=== PATIENT | male | born 1940 | race Caucasian/White ===

== ENCOUNTER → 2018-06-02 10:36 | Outpatient (CLI) | payer MEDICARE, SELFPAY ==
--- NOTE | 2018-06-02 | DI.CT.S_ITS ---
PROCEDURE: CT HEAD/BRAIN WO CON INDICATIONS: CHRONIC HEADACHE LEFT POSTERIOR BASE TECHNIQUE: Noncontrast 4.5 mm thick angled axial sections acquired from the foramen magnum to the vertex, with coronal and sagittal reformats. For radiation dose reduction, the following was used: automated exposure control, adjustment of mA and/or kV according to patient size. COMPARISON: [facility], CT, HEAD WITHOUT CONTRAST, 11/17/2009, 12:16. FINDINGS: Image quality: Excellent. CSF spaces: Basal cisterns are patent. No extra-axial fluid collections. The ventricles are symmetric in size and shape. Brain: No intracranial bleeds or masses. There is cerebral volume loss for age, with resultant ventricular and sulcal prominence. There are periventricular and deep white matter chronic small vessel ischemic changes. There is intracranial internal carotid artery atherosclerosis. Skull and face: Calvarium and visualized facial bones appear intact, without suspicious lesions. Sinuses: Visualized sinuses and mastoids are clear. IMPRESSION: 1. No acute intracranial abnormality. Dictated by: Abdelrahman Son M.D. on 06/02/2018 at 10:56 Approved by: Abdelrahman Son M.D. on 06/02/2018 at 10:57
== END ==
PROVIDERS: PCP Family Medicine; Visit Provider Family Medicine
DX: R51 Headache (principal)
CPT/HCPCS: 70450

== ENCOUNTER 2018-09-06 13:50 | Inpatient (IN) | payer MEDICARE, SELFPAY ==
[2018-09-06] VITALS (17 sets, daily range): BP systolic 115–150; BP diastolic 65–90; PULSE 92–111; RESP 12–24; TEMP 37.3–38; O2SAT 94–98; BMI 23.4
--- NOTE | 2018-09-06 | PATH_ITS ---
[facility] Accession Number: [id number] . 01 Material submitted: . SMALL BOWEL SEGMENT . 02 Diagnosis: Small Bowel, Resection: 1. Chronic severely active ileitis with patchy ulcerations, pseudopyloric metaplasia, and edema. Please see comment. 2. Appendix with fibrous obliteration. 3. Portion of colon with no diagnosic abnormality. 4. Negative for granulomas, dysplasia and malignancy. MRV/09/14/2018 . 02 Comment: The surgical impression of intussusception is noted. No nodules or lesions are identified. There is chronic severely active ileitis with patchy ulcerations, crypt distortion and pseudopyloric metaplasia consistent with the provided history of Crohn's disease. No granulomas are identified. The differential diagnosis could also include medication-related mucosal injury in the appropriate clinical setting. . . 02 Electronically signed: . Judy Alfaro MD, Pathologist NPI- [id number] . 01 Gross description: . Received in formalin, labeled small bowel segment, is a segment of small bowel (length-23.5 cm, proximal diameter-2.7 cm), cecum and ascending colon (length-7.5 cm, distal diameter-3.2 cm), attached appendix (length-7.7 cm, diameter-0.3 cm), and attached mesentery (up to 5.8 cm in depth). The resection margins are received stapled. The serosa is betts, smooth and shiny. The small bowel mucosa is betts and diffusely flat with a minimal amount of normal folds present. The wall is diffusely thickened. The cecum and ascending colon have betts mucosa with normal folds. The appendix is unremarkable. No nodules, massese or lesions are identified. The resection margins are inked black. Section code: (A1) proximal resection margin, longitudinal banking representative sections; (A2) distal resection margin, longitudinal banking representative section; (A3-A6) small bowel banking representative serial sections submitted proximal to distal; (A7, A8) cecum and ascending colon, representativ serial sections submitted proximal to distal; (A9) appendix, banking representative. ([id number]) Additional sections: (A10-A12) remaining appendix, appendix is now entirely submitted; (A13-A20) colon segment, additional serial sections submitted proximal to distal. ([id number]) /MRV . 02 Pathologist provided ICD-10: K56.1 . 02 CPT . 787458 Performed at: 01 [facility] [address] [facility], [place], [place] [id number] MD Toi Tomas MD Phone: [phone] Performed at: 02 [facility] [address] [place], [place] [id number] MD Judy Alfaro MD Phone: [phone]
--- NOTE | 2018-09-06 14:52 | ED.ABDPAIN ---
HPI - Abdominal Pain <LATOYA Phillips - Last Filed: 09/06/18 22:09> General Chief Complaint: Abdominal Pain Stated Complaint: abdominal pain Time Seen by Provider: 09/06/18 14:51 Source: patient Mode of arrival: ambulatory Limitations: no limitations History of Present Illness HPI narrative: 77-year-old male with history of past small bowel obstruction and Crohn's disease the is a nonsmoker here for complaint of abdominal pain that started yesterday. He denies any trauma to the abdomen. He states that he had a period of last night were abdominal pain and got better. Then he reports that early this morning it got worse he reports that he has significant abdominal pain at this timeframe. He does report that he has had 2 bowel movements today had 2 bowel movements yesterday. He denies any the flatus at this timeframe. Positive p.o. intake last p.o. intake was at 9:30 a.m. today. He has nausea. No vomiting. He denies any fevers or chills. Pain is limited to the abdomen. He states that the symptoms are similar to when he has small-bowel obstruction last time. Related Data Home Medications Medication Instructions Recorded Confirmed Fish Oil 500 mg PO DAILY #0 06/24/11 09/06/18 multivitamin [Multiple Vitamins] 1 tab PO DAILY #0 01/05/17 09/06/18 Vitamin D3 1 cap PO DAILY 09/06/18 09/06/18 latanoprost 1 drp OPHTHALMIC (EYE) BEDTIME 09/06/18 09/06/18 omeprazole magnesium [Prilosec OTC] 10 mg PO DAILY 09/06/18 09/06/18 Allergies Allergy/AdvReac Type Severity Reaction Status Date / Time No Known Drug Allergies Allergy Verified 09/06/18 20:52 Review of Systems <LATOYA Phillips - Last Filed: 09/06/18 22:09> Constitutional Denies chills, Denies fever(s), Denies lethargy and Denies weakness Eyes Denies change in vision, Denies eye discharge, Denies irritation and Denies loss of vision ENT Ears, Nose, Mouth, and Throat: Denies change in voice, Denies neck pain and Denies sore throat Cardiovascular Denies chest pain, Denies irregular heart rhythm, Denies lightheadedness, Denies palpitations, Denies dyspnea, Denies dyspnea on exertion and Denies orthopnea Respiratory Denies cough, Denies dyspnea, Denies dyspnea on exertion and Denies wheezing Gastrointestinal Comments: Abdominal pain Genitourinary Denies hematuria, Denies flank pain, Denies urinary incontinence and Denies urinary urgency Musculoskeletal Denies neck pain Integumentary/Breasts Denies pruritus, Denies erythema, Denies rash and Denies wounds Neurologic Denies confusion, Denies loss of vision and Denies weakness Psychiatric Denies anxiety, Denies confusion, Denies depression, Denies homicidal ideation and Denies suicidal ideation Endocrine Denies palpitations Allergic/Immunologic Denies wheezing Exam <LATOYA Phillips - Last Filed: 09/06/18 22:09> Initial Vital Signs Initial Vital Signs: Vital Signs Pulse Rate 92 H 09/06/18 13:59 Respiratory Rate 20 09/06/18 13:59 Blood Pressure 148/90 H 09/06/18 13:59 Pulse Oximetry 96 09/06/18 13:59 Const General: cooperative and well developed Nutritional Appearance: well nourished Orientation: alert, awake, oriented x3 and not confused [facility] Mouth: oral mucosae normal and moist mucous membranes Eyes Conjunctivae: conjunctivae normal Sclera: sclerae normal Pupils: PERRL EOM: EOM intact bilaterally Resp Effort & Inspection: normal respiratory effort, able to speak in complete sentences, no respiratory distress and no use of accessory muscles Auscultation: clear to auscultation bilaterally, no rales, no rhonchi and no wheezes Cardio Rate: regular rate Rhythm: regular rhythm Heart Sounds: no click, no gallops, no murmurs and no rubs Pulses: normal peripheral pulses GI Inspection: distended Palpation: no hepatosplenomegaly, No guarding, No pulsatile mass and tender Auscultation: normal bowel sounds Other: Distention is slight firmness to the abdominal area. Generalized discomfort on palpation. Normoactive bowel sounds. General: No CVA tenderness Neuro General: alert, oriented x3, gait normal and no focal motor deficits Speech: speech normal Extrem General: full ROM, no clubbing, cyanosis or edema, no pedal edema and no calf tenderness <Reyna Gonzalez DO - Last Filed: 09/07/18 19:46> Initial Vital Signs Initial Vital Signs: Vital Signs Pulse Rate 92 H 09/06/18 13:59 Respiratory Rate 20 09/06/18 13:59 Blood Pressure 148/90 H 09/06/18 13:59 Pulse Oximetry 96 09/06/18 13:59 Course <LATOYA Phillips - Last Filed: 09/06/18 22:09> Orders Ordered: Benzocaine/Butamben/Tetracaine HCl (Cetacaine [place]) 1 spray TOP PRN PRN PRN Reason: Sore Throat Diphenhydramine HCl (Benadryl) 25 mg IV Q6HR PRN PRN Reason: Itching Enoxaparin Sodium (Lovenox) 40 mg SUBCUT DAILY [facility] Last Admin: 09/07/18 09:18 Dose: 40 mg Dextrose/Sodium Chloride (Dextrose 5%-0.45% Ns) 1,000 mls @ 125 mls/hr IV CONT [facility] Last Admin: 09/07/18 14:23 Dose: 125 mls/hr Infusion: 09/07/18 14:23 Dose: 125 mls/hr Admin: 09/07/18 06:35 Dose: 125 mls/hr Infusion: 09/07/18 06:11 Dose: 125 mls/hr Admin: 09/06/18 22:11 Dose: 125 mls/hr HYDROMORPHONE [employer] (Dilaudid 6 Mg/30 Ml) 6 mg in 30 mls @ 0 mls/hr IV Q8HR [facility] Last Admin: 09/07/18 14:00 Dose: 0 mls/hr Admin: 09/07/18 06:32 Dose: 4 mls/hr Admin: 09/06/18 22:13 Dose: Not Given Piperacillin/Tazobactam/Dextrose (Zosyn) 3.375 gm in 50 mls @ 100 mls/hr IV Q6H [facility] Last Infusion: 09/07/18 16:43 Dose: 0 mls/hr Admin: 09/07/18 16:06 Dose: 100 mls/hr Infusion: 09/07/18 10:30 Dose: 100 mls/hr Admin: 09/07/18 09:22 Dose: 100 mls/hr Infusion: 09/07/18 04:56 Dose: 0 mls/hr Admin: 09/07/18 04:00 Dose: 100 mls/hr Infusion: 09/07/18 00:14 Dose: 0 mls/hr Admin: 09/06/18 22:35 Dose: 100 mls/hr Naloxone HCl (Narcan) 0.2 mg IV Q2MIN PRN PRN Reason: Opiate Reversal Ondansetron HCl (Zofran) 4 mg IV Q4HR PRN PRN Reason: Nausea And Vomiting Pantoprazole Sodium (Protonix) 40 mg IV DAILY [facility] Last Admin: 09/07/18 09:18 Dose: 40 mg Discontinued Medications Benzocaine (Cepacol Lozenge) 1 each PO PRN PRN PRN Reason: Sore Throat Benzocaine/Butamben/Tetracaine HCl (Cetacaine [place]) 1 spray TOP PRN PRN PRN Reason: Nasogastric tube insertion Last Admin: 09/06/18 16:57 Dose: 1 spray Bupivacaine HCl (Sensorcaine 0.5% (Pf)) 30 ml INJ NOW ONE Stop: 09/06/18 18:11 Last Admin: 09/06/18 18:17 Dose: 10 ml Fentanyl (Sublimaze) 50 mcg IV Q5MIN PRN PRN Reason: Pain, Severe (7-10) Fentanyl (Sublimaze) 50 mcg IV Q5MIN PRN PRN Reason: Pain, Moderate (4-6) Hydromorphone HCl (Dilaudid) 0.5 mg IV NOW ONE Stop: 09/06/18 15:02 Last Admin: 09/06/18 15:17 Dose: 0.5 mg Hydromorphone HCl (Dilaudid) 0.5 mg IV Q5MIN PRN PRN Reason: Pain, Moderate (4-6) Hydroxyzine HCl (Vistaril) 25 mg IM NOW PRN PRN Reason: Pain, Mild (1-3) Sodium Chloride (Normal Saline 0.9%) 1,000 mls @ 1,000 mls/hr IV BOLUS ONE Stop: 09/06/18 16:00 Last Infusion: 09/06/18 16:48 Dose: 0 mls/hr Admin: 09/06/18 15:17 Dose: 1,000 mls/hr Famotidine (Pepcid) 20 mg in 50 mls @ 200 mls/hr IV NOW ONE Stop: 09/06/18 16:53 Last Infusion: 09/06/18 17:10 Dose: 0 mls/hr Admin: 09/06/18 16:52 Dose: 200 mls/hr Lactated Ringer's (Lactated Ringers) 1,000 mls @ 42 mls/hr IV CONT [facility] Last Infusion: 09/06/18 21:05 Dose: 0 mls/hr Admin: 09/06/18 19:27 Dose: 42 mls/hr Infusion: 09/06/18 19:27 Dose: 42 mls/hr Admin: 09/06/18 18:19 Dose: 42 mls/hr Infusion: 09/06/18 18:19 Dose: 42 mls/hr Admin: 09/06/18 17:00 Dose: 42 mls/hr Cefotetan Disodium/Dextrose (Cefotan) 2 gm in 50 mls @ 100 mls/hr IV NOW ONE Stop: 09/06/18 17:14 Last Infusion: 09/06/18 18:01 Dose: 0 mls/hr Admin: 09/06/18 17:43 Dose: 100 mls/hr Lidocaine/Epinephrine (Xylocaine 1% W/Epi) 10 ml INJ NOW ONE Stop: 09/06/18 18:11 Last Admin: 09/06/18 18:11 Dose: 10 ml Lorazepam (Ativan) 0.25 mg IV NOW ONE Stop: 09/06/18 20:26 Last Admin: 09/06/18 20:40 Dose: 0.25 mg Admin: 09/06/18 20:25 Dose: 0.25 mg Metoclopramide HCl (Reglan) 10 mg IV NOW ONE Stop: 09/06/18 16:40 Last Admin: 09/06/18 16:53 Dose: 10 mg Metoclopramide HCl (Reglan) 10 mg IV NOW PRN PRN Reason: Nausea And Vomiting Midazolam HCl (Versed) 2 mg IV NOW ONE Stop: 09/06/18 16:38 Last Admin: 09/06/18 21:47 Dose: Naloxone HCl (Narcan) 0.2 mg IV Q2MIN PRN; Protocol PRN Reason: Opiate Reversal Ondansetron HCl (Zofran) 4 mg IV NOW ONE Stop: 09/06/18 15:02 Last Admin: 09/06/18 15:17 Dose: 4 mg Ondansetron HCl (Zofran) 4 mg IV NOW PRN PRN Reason: Nausea And Vomiting Vital Signs - 8 hr 09/07/18 12:00 09/07/18 15:53 Temperature 98.2 F 98.7 F Pulse Rate 86 96 H Respiratory Rate 26 H 20 Blood Pressure 116/86 108/81 Pulse Oximetry 93 95 <Reyna Gonzaelz, DO - Last Filed: 09/07/18 19:46> Orders Ordered: Benzocaine/Butamben/Tetracaine HCl (Cetacaine [place]) 1 spray TOP PRN PRN PRN Reason: Sore Throat Diphenhydramine HCl (Benadryl) 25 mg IV Q6HR PRN PRN Reason: Itching Enoxaparin Sodium (Lovenox) 40 mg SUBCUT DAILY [facility] Last Admin: 09/07/18 09:18 Dose: 40 mg Dextrose/Sodium Chloride (Dextrose 5%-0.45% Ns) 1,000 mls @ 125 mls/hr IV CONT [facility] Last Admin: 09/07/18 14:23 Dose: 125 mls/hr Infusion: 09/07/18 14:23 Dose: 125 mls/hr Admin: 09/07/18 06:35 Dose: 125 mls/hr Infusion: 09/07/18 06:11 Dose: 125 mls/hr Admin: 09/06/18 22:11 Dose: 125 mls/hr HYDROMORPHONE [employer] (Dilaudid 6 Mg/30 Ml) 6 mg in 30 mls @ 0 mls/hr IV Q8HR [facility] Last Admin: 09/07/18 14:00 Dose: 0 mls/hr Admin: 09/07/18 06:32 Dose: 4 mls/hr Admin: 09/06/18 22:13 Dose: Not Given Piperacillin/Tazobactam/Dextrose (Zosyn) 3.375 gm in 50 mls @ 100 mls/hr IV Q6H [facility] Last Infusion: 09/07/18 16:43 Dose: 0 mls/hr Admin: 09/07/18 16:06 Dose: 100 mls/hr Infusion: 09/07/18 10:30 Dose: 100 mls/hr Admin: 09/07/18 09:22 Dose: 100 mls/hr Infusion: 09/07/18 04:56 Dose: 0 mls/hr Admin: 09/07/18 04:00 Dose: 100 mls/hr Infusion: 09/07/18 00:14 Dose: 0 mls/hr Admin: 09/06/18 22:35 Dose: 100 mls/hr Naloxone HCl (Narcan) 0.2 mg IV Q2MIN PRN PRN Reason: Opiate Reversal Ondansetron HCl (Zofran) 4 mg IV Q4HR PRN PRN Reason: Nausea And Vomiting Pantoprazole Sodium (Protonix) 40 mg IV DAILY [facility] Last Admin: 09/07/18 09:18 Dose: 40 mg Discontinued Medications Benzocaine (Cepacol Lozenge) 1 each PO PRN PRN PRN Reason: Sore Throat Benzocaine/Butamben/Tetracaine HCl (Cetacaine [place]) 1 spray TOP PRN PRN PRN Reason: Nasogastric tube insertion Last Admin: 09/06/18 16:57 Dose: 1 spray Bupivacaine HCl (Sensorcaine 0.5% (Pf)) 30 ml INJ NOW ONE Stop: 09/06/18 18:11 Last Admin: 09/06/18 18:17 Dose: 10 ml Fentanyl (Sublimaze) 50 mcg IV Q5MIN PRN PRN Reason: Pain, Severe (7-10) Fentanyl (Sublimaze) 50 mcg IV Q5MIN PRN PRN Reason: Pain, Moderate (4-6) Hydromorphone HCl (Dilaudid) 0.5 mg IV NOW ONE Stop: 09/06/18 15:02 Last Admin: 09/06/18 15:17 Dose: 0.5 mg Hydromorphone HCl (Dilaudid) 0.5 mg IV Q5MIN PRN PRN Reason: Pain, Moderate (4-6) Hydroxyzine HCl (Vistaril) 25 mg IM NOW PRN PRN Reason: Pain, Mild (1-3) Sodium Chloride (Normal Saline 0.9%) 1,000 mls @ 1,000 mls/hr IV BOLUS ONE Stop: 09/06/18 16:00 Last Infusion: 09/06/18 16:48 Dose: 0 mls/hr Admin: 09/06/18 15:17 Dose: 1,000 mls/hr Famotidine (Pepcid) 20 mg in 50 mls @ 200 mls/hr IV NOW ONE Stop: 09/06/18 16:53 Last Infusion: 09/06/18 17:10 Dose: 0 mls/hr Admin: 09/06/18 16:52 Dose: 200 mls/hr Lactated Ringer's (Lactated Ringers) 1,000 mls @ 42 mls/hr IV CONT [facility] Last Infusion: 09/06/18 21:05 Dose: 0 mls/hr Admin: 09/06/18 19:27 Dose: 42 mls/hr Infusion: 09/06/18 19:27 Dose: 42 mls/hr Admin: 09/06/18 18:19 Dose: 42 mls/hr Infusion: 09/06/18 18:19 Dose: 42 mls/hr Admin: 09/06/18 17:00 Dose: 42 mls/hr Cefotetan Disodium/Dextrose (Cefotan) 2 gm in 50 mls @ 100 mls/hr IV NOW ONE Stop: 09/06/18 17:14 Last Infusion: 09/06/18 18:01 Dose: 0 mls/hr Admin: 09/06/18 17:43 Dose: 100 mls/hr Lidocaine/Epinephrine (Xylocaine 1% W/Epi) 10 ml INJ NOW ONE Stop: 09/06/18 18:11 Last Admin: 09/06/18 18:11 Dose: 10 ml Lorazepam (Ativan) 0.25 mg IV NOW ONE Stop: 09/06/18 20:26 Last Admin: 09/06/18 20:40 Dose: 0.25 mg Admin: 09/06/18 20:25 Dose: 0.25 mg Metoclopramide HCl (Reglan) 10 mg IV NOW ONE Stop: 09/06/18 16:40 Last Admin: 09/06/18 16:53 Dose: 10 mg Metoclopramide HCl (Reglan) 10 mg IV NOW PRN PRN Reason: Nausea And Vomiting Midazolam HCl (Versed) 2 mg IV NOW ONE Stop: 09/06/18 16:38 Last Admin: 09/06/18 21:47 Dose: Naloxone HCl (Narcan) 0.2 mg IV Q2MIN PRN; Protocol PRN Reason: Opiate Reversal Ondansetron HCl (Zofran) 4 mg IV NOW ONE Stop: 09/06/18 15:02 Last Admin: 09/06/18 15:17 Dose: 4 mg Ondansetron HCl (Zofran) 4 mg IV NOW PRN PRN Reason: Nausea And Vomiting Vital Signs - 8 hr 09/07/18 12:00 09/07/18 15:53 Temperature 98.2 F 98.7 F Pulse Rate 86 96 H Respiratory Rate 26 H 20 Blood Pressure 116/86 108/81 Pulse Oximetry 93 95 MDM - Abdominal Pain <Douglas LATOYA Lucas - Last Filed: 09/06/18 22:09> Lab Data Result diagrams: 09/07/18 04:54 09/07/18 04:54 Lab Results 09/06/18 09/06/18 09/06/18 Range/Units 14:05 14:05 21:30 WBC 8.2 (4.5-11.0) X10^3/uL RBC 5.45 (4.5-5.9) X10^6/uL Hgb 17.0 (13.5-17.5) g/dL Hct 49.5 (41-53) % MCV 90.8 (80-100) fL MCH 31.1 (26-34) PG MCHC 34.3 (30-36) % RDW 13.9 (11.6-14.8) % Plt Count 217 (150-400) X10^3/uL Neut % (Auto) 75.2 H (50-75) % Lymph % (Auto) 14.7 L (25-40) % [place] % (Auto) 8.3 (3-14) % Eos % (Auto) 1.5 L (2-4) % Baso % (Auto) 0.3 (0-2) % Neut # (Auto) 6200 (7532-4140) /uL Sodium 137 (137-145) mmol/L Potassium 4.1 (3.4-5.1) mmol/L Chloride 96 L (98-107) mmol/L Carbon Dioxide 30 (22-32) mmol/L BUN 13 (9-20) mg/dL Creatinine 1.00 (0.66-1.25) mg/dL Estimated GFR > 60.0 (>60) mL/min BUN/Creatinine Ratio 13.0 (6-22) Glucose 127 H (80-110) mg/dL Calcium 9.7 (8.4-10.2) mg/dL Total Bilirubin 1.3 (0.2-1.3) mg/dL AST 46 (17-59) IU/L ALT 37 (21-72) IU/L Alkaline Phosphatase 74 (38-126) U/L Total Protein 8.7 H (6.3-8.2) g/dL Albumin 4.7 (3.5-5.0) g/dL Globulin 4.0 (1.7-4.1) g/dL Albumin/Globulin Ratio 1.2 (1.0-2.8) Lipase 25 (23-300) U/L Nasal Screen MRSA (PCR) Negative for mrsa (Negative) 09/07/18 09/07/18 Range/Units 04:54 04:54 WBC 10.8 (4.5-11.0) X10^3/uL RBC 4.97 (4.5-5.9) X10^6/uL Hgb 15.4 (13.5-17.5) g/dL Hct 45.1 (41-53) % MCV 90.8 (80-100) fL MCH 31.0 (26-34) PG MCHC 34.1 (30-36) % RDW 14.1 (11.6-14.8) % Plt Count 206 (150-400) X10^3/uL Neut % (Auto) 88.2 H (50-75) % Lymph % (Auto) 5.0 L (25-40) % [place] % (Auto) 6.7 (3-14) % Eos % (Auto) 0.0 L (2-4) % Baso % (Auto) 0.1 (0-2) % Neut # (Auto) 9500 H (2349-8297) /uL Sodium 135 L (137-145) mmol/L Potassium 4.0 (3.4-5.1) mmol/L Chloride 99 (98-107) mmol/L Carbon Dioxide 25 (22-32) mmol/L BUN 10 (9-20) mg/dL Creatinine 0.90 (0.66-1.25) mg/dL Estimated GFR > 60.0 (>60) mL/min BUN/Creatinine Ratio 11.1 (6-22) Glucose 170 H (80-110) mg/dL Calcium 8.4 (8.4-10.2) mg/dL Total Bilirubin 1.2 (0.2-1.3) mg/dL AST 36 (17-59) IU/L ALT 37 (21-72) IU/L Alkaline Phosphatase 46 (38-126) U/L Total Protein 6.7 (6.3-8.2) g/dL Albumin 3.7 (3.5-5.0) g/dL Globulin 3.0 (1.7-4.1) g/dL Albumin/Globulin Ratio 1.2 (1.0-2.8) Lipase (23-300) U/L Nasal Screen MRSA (PCR) (Negative) Imaging Data CT scan - abdomen: Radiologist's impression: [address] [address] [address] Scan Report Signed Patient: Yung Conn MR#: [id number] : 1940 Acct:[id number] Age/Sex: 77 / M Date of Service: 09/06/18 Loc: ED Accession Number: [id number] Procedure: CT abdomen pelvis w con Ordering Provider: Douglas Lucas PROCEDURE: CT ABDOMEN PELVIS W CON INDICATIONS: Abdominal bloating and pain TECHNIQUE: After the administration of intravenous contrast, 5 mm thick sections acquired from the diaphragm to the symphysis. 5 mm coronal and sagittal reformats were acquired. For radiation dose reduction, the following was used: automated exposure control, adjustment of mA and/or kV according to patient size. COMPARISON: None. FINDINGS: Image quality: Excellent. ABDOMEN: Lung bases: Scarring/atelectasis in posterior aspect of bilateral lung bases are seen. No pleural effusion or pneumothorax.. Heart size is normal. Solid organs: Liver is normal in size and enhancement. Gallbladder is within normal limits. Biliary system is non dilated. Pancreas enhances normally. Spleen is normal in size and enhancement. No adrenal nodules. Kidneys demonstrate normal size and enhancement, without hydronephrosis. 5.4 x 5.5 cm simple-appearing cyst in midpole of right kidney is seen. Peritoneum and bowel: There is a small hiatal hernia. Fluid distended stomach lumen and small bowel loops are noted throughout abdomen with intussusception of a 12 cm segment of distal ileal loop into terminal ileum and right lower quadrant best seen on axial images 63 through 81 and coronal images 27 through 34. Mild distal ileal wall thickening is seen. Colon loops are decompressed. Colon diverticulosis is seen, and no CT evidence of acute diverticulitis. No free fluid or free air. Nodes and vessels: No retroperitoneal or mesenteric adenopathy by size criteria. Aorta and inferior vena cava are normal in size. Miscellaneous: No ventral hernias. PELVIS: Genitourinary: Bladder wall thickness is normal. Enlarged prostate gland with mass effect of pleural effusion the bladder is seen. Miscellaneous: No inguinal hernias or adenopathy. Bones: No suspicious bony lesions. No vertebral body compression fractures. 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 IMPRESSION: 1. Likely ileal ileal intussusception in right lower quadrant abdomen and measures approximately 12 cm in length. Mild distal ileal wall thickening in this region is also seen. Fluid distended stomach lumen and small bowel loops with a few air-fluid levels suggestive of small bowel structures and with transition point at the site of intussusception. Decompressed colon loops. No free fluid or free air. GI correlation and possible endoscopic evaluation is recommended. 2. Enlarged prostate gland with mass effect on floor of urinary bladder. No renal stone or hydronephrosis. Right renal cyst as above. Findings were discussed with referring clinician ER at 3:55 PM on 09/06/18. Dict mild hepatic steatosis is seen. ated by: Star Valdivia M.D. on 09/06/2018 at 15:48 Approved by: Star Valdivia M.D. on 09/06/2018 at 16:00 MDM Narrative Medical decision making narrative: CBC and Chem panel were obtained were unremarkable. Lipase was negative. CT abdomen was obtained and shows ileal ileal intussusception. Discussed case with Dr. chilo bryant who accepted patient is taking patient to surgery for repair. He was given pain medications and nausea medications which happened to be more comfortable. NG tube was placed in the emergency room. <Reyna Gonzalez, DO - Last Filed: 09/07/18 19:46> Lab Data Lab Results 09/06/18 09/06/18 09/06/18 Range/Units 14:05 14:05 21:30 WBC 8.2 (4.5-11.0) X10^3/uL RBC 5.45 (4.5-5.9) X10^6/uL Hgb 17.0 (13.5-17.5) g/dL Hct 49.5 (41-53) % MCV 90.8 (80-100) fL MCH 31.1 (26-34) PG MCHC 34.3 (30-36) % RDW 13.9 (11.6-14.8) % Plt Count 217 (150-400) X10^3/uL Neut % (Auto) 75.2 H (50-75) % Lymph % (Auto) 14.7 L (25-40) % [place] % (Auto) 8.3 (3-14) % Eos % (Auto) 1.5 L (2-4) % Baso % (Auto) 0.3 (0-2) % Neut # (Auto) 6200 (8422-4715) /uL Sodium 137 (137-145) mmol/L Potassium 4.1 (3.4-5.1) mmol/L Chloride 96 L (98-107) mmol/L Carbon Dioxide 30 (22-32) mmol/L BUN 13 (9-20) mg/dL Creatinine 1.00 (0.66-1.25) mg/dL Estimated GFR > 60.0 (>60) mL/min BUN/Creatinine Ratio 13.0 (6-22) Glucose 127 H (80-110) mg/dL Calcium 9.7 (8.4-10.2) mg/dL Total Bilirubin 1.3 (0.2-1.3) mg/dL AST 46 (17-59) IU/L ALT 37 (21-72) IU/L Alkaline Phosphatase 74 (38-126) U/L Total Protein 8.7 H (6.3-8.2) g/dL Albumin 4.7 (3.5-5.0) g/dL Globulin 4.0 (1.7-4.1) g/dL Albumin/Globulin Ratio 1.2 (1.0-2.8) Lipase 25 (23-300) U/L Nasal Screen MRSA (PCR) Negative for mrsa (Negative) 09/07/18 09/07/18 Range/Units 04:54 04:54 WBC 10.8 (4.5-11.0) X10^3/uL RBC 4.97 (4.5-5.9) X10^6/uL Hgb 15.4 (13.5-17.5) g/dL Hct 45.1 (41-53) % MCV 90.8 (80-100) fL MCH 31.0 (26-34) PG MCHC 34.1 (30-36) % RDW 14.1 (11.6-14.8) % Plt Count 206 (150-400) X10^3/uL Neut % (Auto) 88.2 H (50-75) % Lymph % (Auto) 5.0 L (25-40) % [place] % (Auto) 6.7 (3-14) % Eos % (Auto) 0.0 L (2-4) % Baso % (Auto) 0.1 (0-2) % Neut # (Auto) 9500 H (6722-0255) /uL Sodium 135 L (137-145) mmol/L Potassium 4.0 (3.4-5.1) mmol/L Chloride 99 (98-107) mmol/L Carbon Dioxide 25 (22-32) mmol/L BUN 10 (9-20) mg/dL Creatinine 0.90 (0.66-1.25) mg/dL Estimated GFR > 60.0 (>60) mL/min BUN/Creatinine Ratio 11.1 (6-22) Glucose 170 H (80-110) mg/dL Calcium 8.4 (8.4-10.2) mg/dL Total Bilirubin 1.2 (0.2-1.3) mg/dL AST 36 (17-59) IU/L ALT 37 (21-72) IU/L Alkaline Phosphatase 46 (38-126) U/L Total Protein 6.7 (6.3-8.2) g/dL Albumin 3.7 (3.5-5.0) g/dL Globulin 3.0 (1.7-4.1) g/dL Albumin/Globulin Ratio 1.2 (1.0-2.8) Lipase (23-300) U/L Nasal Screen MRSA (PCR) (Negative) Discharge Plan Departure Patient Disposition: Admitted As Inpatient Clinical Impression: Intussusception intestine Discharge Date/Time: 09/06/18 16:47 Interventions: ED Discharge Assessment Last Done: 09/06/18 16:45 Admit Date/Time: 09/06/18 16:19 Admit Provider: Nidia Rosario <Reyna Gonzalez DO - Last Filed: 09/07/18 19:46> Cosign ED Attending Cosignature Attestation: I was immediately available in the department for consultation, case was discussed, surgical consultation and patient take to OR. This documentation has been reviewed and I agree with assessment and plan. Supervised by Reyna Gonzalez,
[2018-09-06 15:02] LABS: Add Manual Diff / Slide Review NO; Basophils Percent Auto 0.3 % (0-2); Eosinophils Percent Auto 1.5 % (2-4); Hematocrit 49.5 % (41-53); Lymphocytes Percent Auto 14.7 % (25-40); Mean Corpuscular HGB Conc 34.3 % (30-36); Mean Corpuscular Hemoglobin 31.1 PG (26-34); Mean Corpuscular Volume 90.8 fL (80-100); Monocytes Percent Auto 8.3 % (3-14); Neutrophils Absolute Auto 6200 /uL (1500-7000); Neutrophils Percent Auto 75.2 % (50-75); Platelet Count 217 X10^3/uL (150-400); Red Blood Cell Count 5.45 X10^6/uL (4.5-5.9); Red Cell Distribution Width 13.9 % (11.6-14.8); White Blood Cell Count 8.2 X10^3/uL (4.5-11.0)
--- NOTE | 2018-09-06 15:02 | DI.CT.S_ITS ---
PROCEDURE: CT ABDOMEN PELVIS W CON INDICATIONS: Abdominal bloating and pain TECHNIQUE: After the administration of intravenous contrast, 5 mm thick sections acquired from the diaphragm to the symphysis. 5 mm coronal and sagittal reformats were acquired. For radiation dose reduction, the following was used: automated exposure control, adjustment of mA and/or kV according to patient size. COMPARISON: None. FINDINGS: Image quality: Excellent. ABDOMEN: Lung bases: Scarring/atelectasis in posterior aspect of bilateral lung bases are seen. No pleural effusion or pneumothorax.. Heart size is normal. Solid organs: Liver is normal in size and enhancement. Gallbladder is within normal limits. Biliary system is non dilated. Pancreas enhances normally. Spleen is normal in size and enhancement. No adrenal nodules. Kidneys demonstrate normal size and enhancement, without hydronephrosis. 5.4 x 5.5 cm simple-appearing cyst in midpole of right kidney is seen. Peritoneum and bowel: There is a small hiatal hernia. Fluid distended stomach lumen and small bowel loops are noted throughout abdomen with intussusception of a 12 cm segment of distal ileal loop into terminal ileum and right lower quadrant best seen on axial images 63 through 81 and coronal images 27 through 34. Mild distal ileal wall thickening is seen. Colon loops are decompressed. Colon diverticulosis is seen, and no CT evidence of acute diverticulitis. No free fluid or free air. Nodes and vessels: No retroperitoneal or mesenteric adenopathy by size criteria. Aorta and inferior vena cava are normal in size. Miscellaneous: No ventral hernias. PELVIS: Genitourinary: Bladder wall thickness is normal. Enlarged prostate gland with mass effect of pleural effusion the bladder is seen. Miscellaneous: No inguinal hernias or adenopathy. Bones: No suspicious bony lesions. No vertebral body compression fractures. 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 IMPRESSION: 1. Likely ileal ileal intussusception in right lower quadrant abdomen and measures approximately 12 cm in length. Mild distal ileal wall thickening in this region is also seen. Fluid distended stomach lumen and small bowel loops with a few air-fluid levels suggestive of small bowel structures and with transition point at the site of intussusception. Decompressed colon loops. No free fluid or free air. GI correlation and possible endoscopic evaluation is recommended. 2. Enlarged prostate gland with mass effect on floor of urinary bladder. No renal stone or hydronephrosis. Right renal cyst as above. Findings were discussed with referring clinician ER at 3:55 PM on 09/06/18. Dict mild hepatic steatosis is seen. ated by: Star Valdivia M.D. on 09/06/2018 at 15:48 Approved by: Star Valdivia M.D. on 09/06/2018 at 16:00
[2018-09-06 15:07] LABS: Alanine Aminotransferase 37 IU/L (21-72); Albumin 4.7 g/dL (3.5-5.0); Albumin Globulin Ratio 1.2 (1.0-2.8); Alkaline Phosphatase 74 U/L (38-126); Aspartate Aminotransferase 46 IU/L (17-59); Bilirubin Total 1.3 mg/dL (0.2-1.3); Blood Urea Nitrogen 13 mg/dL (9-20); Calcium 9.7 mg/dL (8.4-10.2); Carbon Dioxide 30 mmol/L (22-32); Chloride 96 mmol/L (98-107); Estimated Glomerular Filt Rate > 60.0 mL/min (>60); Glucose 127 mg/dL (80-110); HEMOLYSIS 28 (0-50); Lipase 25 U/L (23-300); Potassium 4.1 mmol/L (3.4-5.1); Sodium 137 mmol/L (137-145); Total Protein 8.7 g/dL (6.3-8.2)
[2018-09-06] MEDS: SODIUM CHLORIDE 0.9% 1,000 ML 1000 ML IV (15:17)
[2018-09-06] MEDS: HYDROMORPHONE 1 MG INJ 0.5 MG IV (15:17)
[2018-09-06] MEDS: ONDANSETRON 4 MG/2 ML INJ IV (15:17)
--- NOTE | 2018-09-06 16:23 | ED_ITS ---
HPI - Abdominal Pain <LATOYA Phillips - Last Filed: 09/06/18 22:09> General Chief Complaint: Abdominal Pain Stated Complaint: abdominal pain Time Seen by Provider: 09/06/18 14:51 Source: patient Mode of arrival: ambulatory Limitations: no limitations History of Present Illness HPI narrative: 77-year-old male with history of past small bowel obstruction and Crohn's disease the is a nonsmoker here for complaint of abdominal pain that started yesterday. He denies any trauma to the abdomen. He states that he had a period of last night were abdominal pain and got better. Then he reports that early this morning it got worse he reports that he has significant abdominal pain at this timeframe. He does report that he has had 2 bowel movements today had 2 bowel movements yesterday. He denies any the flatus at this timeframe. Positive p.o. intake last p.o. intake was at 9:30 a.m. today. He has nausea. No vomiting. He denies any fevers or chills. Pain is limited to the abdomen. He states that the symptoms are similar to when he has small- bowel obstruction last time. Related Data Home Medications Medication Instructions Recorded Confirmed Fish Oil 500 mg PO DAILY #0 06/24/11 09/06/18 multivitamin [Multiple Vitamins] 1 tab PO DAILY #0 01/05/17 09/06/18 Vitamin D3 1 cap PO DAILY 09/06/18 09/06/18 latanoprost 1 drp OPHTHALMIC (EYE) BEDTIME 09/06/18 09/06/18 omeprazole magnesium [Prilosec OTC] 10 mg PO DAILY 09/06/18 09/06/18 Allergies Allergy/AdvReac Type Severity Reaction Status Date / Time No Known Drug Allergies Allergy Verified 09/06/18 20:52 Review of Systems <LATOYA Phillips - Last Filed: 09/06/18 22:09> Constitutional Denies chills, Denies fever(s), Denies lethargy and Denies weakness Eyes Denies change in vision, Denies eye discharge, Denies irritation and Denies loss of vision ENT Ears, Nose, Mouth, and Throat: Denies change in voice, Denies neck pain and Denies sore throat Cardiovascular Denies chest pain, Denies irregular heart rhythm, Denies lightheadedness, Denies palpitations, Denies dyspnea, Denies dyspnea on exertion and Denies orthopnea Respiratory Denies cough, Denies dyspnea, Denies dyspnea on exertion and Denies wheezing Gastrointestinal Comments: Abdominal pain Genitourinary Denies hematuria, Denies flank pain, Denies urinary incontinence and Denies urinary urgency Musculoskeletal Denies neck pain Integumentary/Breasts Denies pruritus, Denies erythema, Denies rash and Denies wounds Neurologic Denies confusion, Denies loss of vision and Denies weakness Psychiatric Denies anxiety, Denies confusion, Denies depression, Denies homicidal ideation and Denies suicidal ideation Endocrine Denies palpitations Allergic/Immunologic Denies wheezing Exam <LATOYA Phillips - Last Filed: 09/06/18 22:09> Initial Vital Signs Initial Vital Signs: Vital Signs Pulse Rate 92 H 09/06/18 13:59 Respiratory Rate 20 09/06/18 13:59 Blood Pressure 148/90 H 09/06/18 13:59 Pulse Oximetry 96 09/06/18 13:59 Const General: cooperative and well developed Nutritional Appearance: well nourished Orientation: alert, awake, oriented x3 and not confused [facility] Mouth: oral mucosae normal and moist mucous membranes Eyes Conjunctivae: conjunctivae normal Sclera: sclerae normal Pupils: PERRL EOM: EOM intact bilaterally Resp Effort & Inspection: normal respiratory effort, able to speak in complete sentences, no respiratory distress and no use of accessory muscles Auscultation: clear to auscultation bilaterally, no rales, no rhonchi and no wheezes Cardio Rate: regular rate Rhythm: regular rhythm Heart Sounds: no click, no gallops, no murmurs and no rubs Pulses: normal peripheral pulses GI Inspection: distended Palpation: no hepatosplenomegaly, No guarding, No pulsatile mass and tender Auscultation: normal bowel sounds Other: Distention is slight firmness to the abdominal area. Generalized discomfort on palpation. Normoactive bowel sounds. General: No CVA tenderness Neuro General: alert, oriented x3, gait normal and no focal motor deficits Speech: speech normal Extrem General: full ROM, no clubbing, cyanosis or edema, no pedal edema and no calf tenderness <Reyna Gonzalez DO - Last Filed: 09/07/18 19:46> Initial Vital Signs Initial Vital Signs: Vital Signs Pulse Rate 92 H 09/06/18 13:59 Respiratory Rate 20 09/06/18 13:59 Blood Pressure 148/90 H 09/06/18 13:59 Pulse Oximetry 96 09/06/18 13:59 Course <LATOYA Phillips - Last Filed: 09/06/18 22:09> Orders Ordered: Benzocaine/Butamben/Tetracaine HCl (Cetacaine Silva) 1 spray TOP PRN PRN PRN Reason: Sore Throat Diphenhydramine HCl (Benadryl) 25 mg IV Q6HR PRN PRN Reason: Itching Enoxaparin Sodium (Lovenox) 40 mg SUBCUT DAILY [facility] Last Admin: 09/07/18 09:18 Dose: 40 mg Dextrose/Sodium Chloride (Dextrose 5%-0.45% Ns) 1,000 mls @ 125 mls/hr IV CONT [facility] Last Admin: 09/07/18 14:23 Dose: 125 mls/hr Infusion: 09/07/18 14:23 Dose: 125 mls/hr Admin: 09/07/18 06:35 Dose: 125 mls/hr Infusion: 09/07/18 06:11 Dose: 125 mls/hr Admin: 09/06/18 22:11 Dose: 125 mls/hr HYDROMORPHONE INSIGHT LEADER (Dilaudid 6 Mg/30 Ml) 6 mg in 30 mls @ 0 mls/hr IV Q8HR [facility] Last Admin: 09/07/18 14:00 Dose: 0 mls/hr Admin: 09/07/18 06:32 Dose: 4 mls/hr Admin: 09/06/18 22:13 Dose: Not Given Piperacillin/Tazobactam/Dextrose (Zosyn) 3.375 gm in 50 mls @ 100 mls/hr IV Q6H [facility] Last Infusion: 09/07/18 16:43 Dose: 0 mls/hr Admin: 09/07/18 16:06 Dose: 100 mls/hr Infusion: 09/07/18 10:30 Dose: 100 mls/hr Admin: 09/07/18 09:22 Dose: 100 mls/hr Infusion: 09/07/18 04:56 Dose: 0 mls/hr Admin: 09/07/18 04:00 Dose: 100 mls/hr Infusion: 09/07/18 00:14 Dose: 0 mls/hr Admin: 09/06/18 22:35 Dose: 100 mls/hr Naloxone HCl (Narcan) 0.2 mg IV Q2MIN PRN PRN Reason: Opiate Reversal Ondansetron HCl (Zofran) 4 mg IV Q4HR PRN PRN Reason: Nausea And Vomiting Pantoprazole Sodium (Protonix) 40 mg IV DAILY D[facility] Last Admin: 09/07/18 09:18 Dose: 40 mg Discontinued Medications Benzocaine (Cepacol Lozenge) 1 each PO PRN PRN PRN Reason: Sore Throat Benzocaine/Butamben/Tetracaine HCl (Cetacaine Silva) 1 spray TOP PRN PRN PRN Reason: Nasogastric tube insertion Last Admin: 09/06/18 16:57 Dose: 1 spray Bupivacaine HCl (Sensorcaine 0.5% (Pf)) 30 ml INJ NOW ONE Stop: 09/06/18 18:11 Last Admin: 09/06/18 18:17 Dose: 10 ml Fentanyl (Sublimaze) 50 mcg IV Q5MIN PRN PRN Reason: Pain, Severe (7-10) Fentanyl (Sublimaze) 50 mcg IV Q5MIN PRN PRN Reason: Pain, Moderate (4-6) Hydromorphone HCl (Dilaudid) 0.5 mg IV NOW ONE Stop: 09/06/18 15:02 Last Admin: 09/06/18 15:17 Dose: 0.5 mg Hydromorphone HCl (Dilaudid) 0.5 mg IV Q5MIN PRN PRN Reason: Pain, Moderate (4-6) Hydroxyzine HCl (Vistaril) 25 mg IM NOW PRN PRN Reason: Pain, Mild (1-3) Sodium Chloride (Normal Saline 0.9%) 1,000 mls @ 1,000 mls/hr IV BOLUS ONE Stop: 09/06/18 16:00 Last Infusion: 09/06/18 16:48 Dose: 0 mls/hr Admin: 09/06/18 15:17 Dose: 1,000 mls/hr Famotidine (Pepcid) 20 mg in 50 mls @ 200 mls/hr IV NOW ONE Stop: 09/06/18 16:53 Last Infusion: 09/06/18 17:10 Dose: 0 mls/hr Admin: 09/06/18 16:52 Dose: 200 mls/hr Lactated Ringer's (Lactated Ringers) 1,000 mls @ 42 mls/hr IV CONT DANIEL Last Infusion: 09/06/18 21:05 Dose: 0 mls/hr Admin: 09/06/18 19:27 Dose: 42 mls/hr Infusion: 09/06/18 19:27 Dose: 42 mls/hr Admin: 09/06/18 18:19 Dose: 42 mls/hr Infusion: 09/06/18 18:19 Dose: 42 mls/hr Admin: 09/06/18 17:00 Dose: 42 mls/hr Cefotetan Disodium/Dextrose (Cefotan) 2 gm in 50 mls @ 100 mls/hr IV NOW ONE Stop: 09/06/18 17:14 Last Infusion: 09/06/18 18:01 Dose: 0 mls/hr Admin: 09/06/18 17:43 Dose: 100 mls/hr Lidocaine/Epinephrine (Xylocaine 1% W/Epi) 10 ml INJ NOW ONE Stop: 09/06/18 18:11 Last Admin: 09/06/18 18:11 Dose: 10 ml Lorazepam (Ativan) 0.25 mg IV NOW ONE Stop: 09/06/18 20:26 Last Admin: 09/06/18 20:40 Dose: 0.25 mg Admin: 09/06/18 20:25 Dose: 0.25 mg Metoclopramide HCl (Reglan) 10 mg IV NOW ONE Stop: 09/06/18 16:40 Last Admin: 09/06/18 16:53 Dose: 10 mg Metoclopramide HCl (Reglan) 10 mg IV NOW PRN PRN Reason: Nausea And Vomiting Midazolam HCl (Versed) 2 mg IV NOW ONE Stop: 09/06/18 16:38 Last Admin: 09/06/18 21:47 Dose: Naloxone HCl (Narcan) 0.2 mg IV Q2MIN PRN; Protocol PRN Reason: Opiate Reversal Ondansetron HCl (Zofran) 4 mg IV NOW ONE Stop: 09/06/18 15:02 Last Admin: 09/06/18 15:17 Dose: 4 mg Ondansetron HCl (Zofran) 4 mg IV NOW PRN PRN Reason: Nausea And Vomiting Vital Signs - 8 hr 09/07/18 12:00 09/07/18 15:53 Temperature 98.2 F 98.7 F Pulse Rate 86 96 H Respiratory Rate 26 H 20 Blood Pressure 116/86 108/81 Pulse Oximetry 93 95 <Reyna Gonzalez, DO - Last Filed: 09/07/18 19:46> Orders Ordered: Benzocaine/Butamben/Tetracaine HCl (Cetacaine Silva) 1 spray TOP PRN PRN PRN Reason: Sore Throat Diphenhydramine HCl (Benadryl) 25 mg IV Q6HR PRN PRN Reason: Itching Enoxaparin Sodium (Lovenox) 40 mg SUBCUT DAILY [facility] Last Admin: 09/07/18 09:18 Dose: 40 mg Dextrose/Sodium Chloride (Dextrose 5%-0.45% Ns) 1,000 mls @ 125 mls/hr IV CONT [facility] Last Admin: 09/07/18 14:23 Dose: 125 mls/hr Infusion: 09/07/18 14:23 Dose: 125 mls/hr Admin: 09/07/18 06:35 Dose: 125 mls/hr Infusion: 09/07/18 06:11 Dose: 125 mls/hr Admin: 09/06/18 22:11 Dose: 125 mls/hr HYDROMORPHONE INSIGHT LEADER (Dilaudid 6 Mg/30 Ml) 6 mg in 30 mls @ 0 mls/hr IV Q8HR [facility] Last Admin: 09/07/18 14:00 Dose: 0 mls/hr Admin: 09/07/18 06:32 Dose: 4 mls/hr Admin: 09/06/18 22:13 Dose: Not Given Piperacillin/Tazobactam/Dextrose (Zosyn) 3.375 gm in 50 mls @ 100 mls/hr IV Q6H [facility] Last Infusion: 09/07/18 16:43 Dose: 0 mls/hr Admin: 09/07/18 16:06 Dose: 100 mls/hr Infusion: 09/07/18 10:30 Dose: 100 mls/hr Admin: 09/07/18 09:22 Dose: 100 mls/hr Infusion: 09/07/18 04:56 Dose: 0 mls/hr Admin: 09/07/18 04:00 Dose: 100 mls/hr Infusion: 09/07/18 00:14 Dose: 0 mls/hr Admin: 09/06/18 22:35 Dose: 100 mls/hr Naloxone HCl (Narcan) 0.2 mg IV Q2MIN PRN PRN Reason: Opiate Reversal Ondansetron HCl (Zofran) 4 mg IV Q4HR PRN PRN Reason: Nausea And Vomiting Pantoprazole Sodium (Protonix) 40 mg IV DAILY D[facility] Last Admin: 09/07/18 09:18 Dose: 40 mg Discontinued Medications Benzocaine (Cepacol Lozenge) 1 each PO PRN PRN PRN Reason: Sore Throat Benzocaine/Butamben/Tetracaine HCl (Cetacaine Silva) 1 spray TOP PRN PRN PRN Reason: Nasogastric tube insertion Last Admin: 09/06/18 16:57 Dose: 1 spray Bupivacaine HCl (Sensorcaine 0.5% (Pf)) 30 ml INJ NOW ONE Stop: 09/06/18 18:11 Last Admin: 09/06/18 18:17 Dose: 10 ml Fentanyl (Sublimaze) 50 mcg IV Q5MIN PRN PRN Reason: Pain, Severe (7-10) Fentanyl (Sublimaze) 50 mcg IV Q5MIN PRN PRN Reason: Pain, Moderate (4-6) Hydromorphone HCl (Dilaudid) 0.5 mg IV NOW ONE Stop: 09/06/18 15:02 Last Admin: 09/06/18 15:17 Dose: 0.5 mg Hydromorphone HCl (Dilaudid) 0.5 mg IV Q5MIN PRN PRN Reason: Pain, Moderate (4-6) Hydroxyzine HCl (Vistaril) 25 mg IM NOW PRN PRN Reason: Pain, Mild (1-3) Sodium Chloride (Normal Saline 0.9%) 1,000 mls @ 1,000 mls/hr IV BOLUS ONE Stop: 09/06/18 16:00 Last Infusion: 09/06/18 16:48 Dose: 0 mls/hr Admin: 09/06/18 15:17 Dose: 1,000 mls/hr Famotidine (Pepcid) 20 mg in 50 mls @ 200 mls/hr IV NOW ONE Stop: 09/06/18 16:53 Last Infusion: 09/06/18 17:10 Dose: 0 mls/hr Admin: 09/06/18 16:52 Dose: 200 mls/hr Lactated Ringer's (Lactated Ringers) 1,000 mls @ 42 mls/hr IV CONT [facility] Last Infusion: 09/06/18 21:05 Dose: 0 mls/hr Admin: 09/06/18 19:27 Dose: 42 mls/hr Infusion: 09/06/18 19:27 Dose: 42 mls/hr Admin: 09/06/18 18:19 Dose: 42 mls/hr Infusion: 09/06/18 18:19 Dose: 42 mls/hr Admin: 09/06/18 17:00 Dose: 42 mls/hr Cefotetan Disodium/Dextrose (Cefotan) 2 gm in 50 mls @ 100 mls/hr IV NOW ONE Stop: 09/06/18 17:14 Last Infusion: 09/06/18 18:01 Dose: 0 mls/hr Admin: 09/06/18 17:43 Dose: 100 mls/hr Lidocaine/Epinephrine (Xylocaine 1% W/Epi) 10 ml INJ NOW ONE Stop: 09/06/18 18:11 Last Admin: 09/06/18 18:11 Dose: 10 ml Lorazepam (Ativan) 0.25 mg IV NOW ONE Stop: 09/06/18 20:26 Last Admin: 09/06/18 20:40 Dose: 0.25 mg Admin: 09/06/18 20:25 Dose: 0.25 mg Metoclopramide HCl (Reglan) 10 mg IV NOW ONE Stop: 09/06/18 16:40 Last Admin: 09/06/18 16:53 Dose: 10 mg Metoclopramide HCl (Reglan) 10 mg IV NOW PRN PRN Reason: Nausea And Vomiting Midazolam HCl (Versed) 2 mg IV NOW ONE Stop: 09/06/18 16:38 Last Admin: 09/06/18 21:47 Dose: Naloxone HCl (Narcan) 0.2 mg IV Q2MIN PRN; Protocol PRN Reason: Opiate Reversal Ondansetron HCl (Zofran) 4 mg IV NOW ONE Stop: 09/06/18 15:02 Last Admin: 09/06/18 15:17 Dose: 4 mg Ondansetron HCl (Zofran) 4 mg IV NOW PRN PRN Reason: Nausea And Vomiting Vital Signs - 8 hr 09/07/18 12:00 09/07/18 15:53 Temperature 98.2 F 98.7 F Pulse Rate 86 96 H Respiratory Rate 26 H 20 Blood Pressure 116/86 108/81 Pulse Oximetry 93 95 MDM - Abdominal Pain <Douglas LATOYA Lucas - Last Filed: 09/06/18 22:09> Lab Data Result diagrams: 09/07/18 04:54 09/07/18 04:54 Lab Results 09/06/18 09/06/18 09/06/18 Range/Units 14:05 14:05 21:30 WBC 8.2 (4.5-11.0) X10^3/uL RBC 5.45 (4.5-5.9) X10^6/uL Hgb 17.0 (13.5-17.5) g/dL Hct 49.5 (41-53) % MCV 90.8 (80-100) fL MCH 31.1 (26-34) PG MCHC 34.3 (30-36) % RDW 13.9 (11.6-14.8) % Plt Count 217 (150-400) X10^3/uL Neut % (Auto) 75.2 H (50-75) % Lymph % (Auto) 14.7 L (25-40) % Mcintosh % (Auto) 8.3 (3-14) % Eos % (Auto) 1.5 L (2-4) % Baso % (Auto) 0.3 (0-2) % Neut # (Auto) 6200 (2279-8860) /uL Sodium 137 (137-145) mmol/L Potassium 4.1 (3.4-5.1) mmol/L Chloride 96 L (98-107) mmol/L Carbon Dioxide 30 (22-32) mmol/L BUN 13 (9-20) mg/dL Creatinine 1.00 (0.66-1.25) mg/dL Estimated GFR > 60.0 (>60) mL/min BUN/Creatinine Ratio 13.0 (6-22) Glucose 127 H (80-110) mg/dL Calcium 9.7 (8.4-10.2) mg/dL Total Bilirubin 1.3 (0.2-1.3) mg/dL AST 46 (17-59) IU/L ALT 37 (21-72) IU/L Alkaline Phosphatase 74 (38-126) U/L Total Protein 8.7 H (6.3-8.2) g/dL Albumin 4.7 (3.5-5.0) g/dL Globulin 4.0 (1.7-4.1) g/dL Albumin/Globulin Ratio 1.2 (1.0-2.8) Lipase 25 (23-300) U/L Nasal Screen MRSA (PCR) Negative for mrsa (Negative) 09/07/18 09/07/18 Range/Units 04:54 04:54 WBC 10.8 (4.5-11.0) X10^3/uL RBC 4.97 (4.5-5.9) X10^6/uL Hgb 15.4 (13.5-17.5) g/dL Hct 45.1 (41-53) % MCV 90.8 (80-100) fL MCH 31.0 (26-34) PG MCHC 34.1 (30-36) % RDW 14.1 (11.6-14.8) % Plt Count 206 (150-400) X10^3/uL Neut % (Auto) 88.2 H (50-75) % Lymph % (Auto) 5.0 L (25-40) % Mcintosh % (Auto) 6.7 (3-14) % Eos % (Auto) 0.0 L (2-4) % Baso % (Auto) 0.1 (0-2) % Neut # (Auto) 9500 H (9659-3958) /uL Sodium 135 L (137-145) mmol/L Potassium 4.0 (3.4-5.1) mmol/L Chloride 99 (98-107) mmol/L Carbon Dioxide 25 (22-32) mmol/L BUN 10 (9-20) mg/dL Creatinine 0.90 (0.66-1.25) mg/dL Estimated GFR > 60.0 (>60) mL/min BUN/Creatinine Ratio 11.1 (6-22) Glucose 170 H (80-110) mg/dL Calcium 8.4 (8.4-10.2) mg/dL Total Bilirubin 1.2 (0.2-1.3) mg/dL AST 36 (17-59) IU/L ALT 37 (21-72) IU/L Alkaline Phosphatase 46 (38-126) U/L Total Protein 6.7 (6.3-8.2) g/dL Albumin 3.7 (3.5-5.0) g/dL Globulin 3.0 (1.7-4.1) g/dL Albumin/Globulin Ratio 1.2 (1.0-2.8) Lipase (23-300) U/L Nasal Screen MRSA (PCR) (Negative) Imaging Data CT scan - abdomen: Radiologist's impression: [address] [address] [address] Scan Report Signed Patient: Yung Conn MR#: [id number] : 1940 Acct:[id number] Age/Sex: 77 / M Date of Service: 09/06/18 Loc: ED Accession Number: [id number] Procedure: CT abdomen pelvis w con Ordering Provider: Douglas Lucas PROCEDURE: CT ABDOMEN PELVIS W CON INDICATIONS: Abdominal bloating and pain TECHNIQUE: After the administration of intravenous contrast, 5 mm thick sections acquired from the diaphragm to the symphysis. 5 mm coronal and sagittal reformats were acquired. For radiation dose reduction, the following was used: automated exposure control, adjustment of mA and/or kV according to patient size. COMPARISON: None. FINDINGS: Image quality: Excellent. ABDOMEN: Lung bases: Scarring/atelectasis in posterior aspect of bilateral lung bases are seen. No pleural effusion or pneumothorax.. Heart size is normal. Solid organs: Liver is normal in size and enhancement. Gallbladder is within normal limits. Biliary system is non dilated. Pancreas enhances normally. Spleen is normal in size and enhancement. No adrenal nodules. Kidneys demonstrate normal size and enhancement, without hydronephrosis. 5.4 x 5.5 cm simple-appearing cyst in midpole of right kidney is seen. Peritoneum and bowel: There is a small hiatal hernia. Fluid distended stomach lumen and small bowel loops are noted throughout abdomen with intussusception of a 12 cm segment of distal ileal loop into terminal ileum and right lower quadrant best seen on axial images 63 through 81 and coronal images 27 through 34. Mild distal ileal wall thickening is seen. Colon loops are decompressed. Colon diverticulosis is seen, and no CT evidence of acute diverticulitis. No free fluid or free air. Nodes and vessels: No retroperitoneal or mesenteric adenopathy by size criteria. Aorta and inferior vena cava are normal in size. Miscellaneous: No ventral hernias. PELVIS: Genitourinary: Bladder wall thickness is normal. Enlarged prostate gland with mass effect of pleural effusion the bladder is seen. Miscellaneous: No inguinal hernias or adenopathy. Bones: No suspicious bony lesions. No vertebral body compression fractures. 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 IMPRESSION: 1. Likely ileal ileal intussusception in right lower quadrant abdomen and measures approximately 12 cm in length. Mild distal ileal wall thickening in this region is also seen. Fluid distended stomach lumen and small bowel loops with a few air-fluid levels suggestive of small bowel structures and with transition point at the site of intussusception. Decompressed colon loops. No free fluid or free air. GI correlation and possible endoscopic evaluation is recommended. 2. Enlarged prostate gland with mass effect on floor of urinary bladder. No renal stone or hydronephrosis. Right renal cyst as above. Findings were discussed with referring clinician ER at 3:55 PM on 09/06/18. Dict mild hepatic steatosis is seen. ated by: Star Valdivia M.D. on 09/06/2018 at 15: 48 Approved by: Star Valdivia M.D. on 09/06/2018 at 16:00 MDM Narrative Medical decision making narrative: CBC and Chem panel were obtained were unremarkable. Lipase was negative. CT abdomen was obtained and shows ileal ileal intussusception. Discussed case with Dr. chilo bryant who accepted patient is taking patient to surgery for repair. He was given pain medications and nausea medications which happened to be more comfortable. NG tube was placed in the emergency room. <Reyna Gonzalez, DO - Last Filed: 09/07/18 19:46> Lab Data Lab Results 09/06/18 09/06/18 09/06/18 Range/Units 14:05 14:05 21:30 WBC 8.2 (4.5-11.0) X10^3/uL RBC 5.45 (4.5-5.9) X10^6/uL Hgb 17.0 (13.5-17.5) g/dL Hct 49.5 (41-53) % MCV 90.8 (80-100) fL MCH 31.1 (26-34) PG MCHC 34.3 (30-36) % RDW 13.9 (11.6-14.8) % Plt Count 217 (150-400) X10^3/uL Neut % (Auto) 75.2 H (50-75) % Lymph % (Auto) 14.7 L (25-40) % Mcintosh % (Auto) 8.3 (3-14) % Eos % (Auto) 1.5 L (2-4) % Baso % (Auto) 0.3 (0-2) % Neut # (Auto) 6200 (8888-8840) /uL Sodium 137 (137-145) mmol/L Potassium 4.1 (3.4-5.1) mmol/L Chloride 96 L (98-107) mmol/L Carbon Dioxide 30 (22-32) mmol/L BUN 13 (9-20) mg/dL Creatinine 1.00 (0.66-1.25) mg/dL Estimated GFR > 60.0 (>60) mL/min BUN/Creatinine Ratio 13.0 (6-22) Glucose 127 H (80-110) mg/dL Calcium 9.7 (8.4-10.2) mg/dL Total Bilirubin 1.3 (0.2-1.3) mg/dL AST 46 (17-59) IU/L ALT 37 (21-72) IU/L Alkaline Phosphatase 74 (38-126) U/L Total Protein 8.7 H (6.3-8.2) g/dL Albumin 4.7 (3.5-5.0) g/dL Globulin 4.0 (1.7-4.1) g/dL Albumin/Globulin Ratio 1.2 (1.0-2.8) Lipase 25 (23-300) U/L Nasal Screen MRSA (PCR) Negative for mrsa (Negative) 09/07/18 09/07/18 Range/Units 04:54 04:54 WBC 10.8 (4.5-11.0) X10^3/uL RBC 4.97 (4.5-5.9) X10^6/uL Hgb 15.4 (13.5-17.5) g/dL Hct 45.1 (41-53) % MCV 90.8 (80-100) fL MCH 31.0 (26-34) PG MCHC 34.1 (30-36) % RDW 14.1 (11.6-14.8) % Plt Count 206 (150-400) X10^3/uL Neut % (Auto) 88.2 H (50-75) % Lymph % (Auto) 5.0 L (25-40) % Mcintosh % (Auto) 6.7 (3-14) % Eos % (Auto) 0.0 L (2-4) % Baso % (Auto) 0.1 (0-2) % Neut # (Auto) 9500 H (7128-2676) /uL Sodium 135 L (137-145) mmol/L Potassium 4.0 (3.4-5.1) mmol/L Chloride 99 (98-107) mmol/L Carbon Dioxide 25 (22-32) mmol/L BUN 10 (9-20) mg/dL Creatinine 0.90 (0.66-1.25) mg/dL Estimated GFR > 60.0 (>60) mL/min BUN/Creatinine Ratio 11.1 (6-22) Glucose 170 H (80-110) mg/dL Calcium 8.4 (8.4-10.2) mg/dL Total Bilirubin 1.2 (0.2-1.3) mg/dL AST 36 (17-59) IU/L ALT 37 (21-72) IU/L Alkaline Phosphatase 46 (38-126) U/L Total Protein 6.7 (6.3-8.2) g/dL Albumin 3.7 (3.5-5.0) g/dL Globulin 3.0 (1.7-4.1) g/dL Albumin/Globulin Ratio 1.2 (1.0-2.8) Lipase (23-300) U/L Nasal Screen MRSA (PCR) (Negative) Discharge Plan Departure Patient Disposition: Admitted As Inpatient Clinical Impression: Intussusception intestine Discharge Date/Time: 09/06/18 16:47 Interventions: ED Discharge Assessment Last Done: 09/06/18 16:45 Admit Date/Time: 09/06/18 16:19 Admit Provider: Nidia Rosario <Reyna Gonzalez DO - Last Filed: 09/07/18 19:46> Cosign ED Attending Cosignature Attestation: I was immediately available in the department for consultation, case was discussed, surgical consultation and patient take to OR. This documentation has been reviewed and I agree with assessment and plan. Supervised by Reyna Gonzalez,
--- NOTE | 2018-09-06 16:33 | PM.HP.1 ---
History of Present Illness Date Patient Seen: 09/06/18 Time Patient Seen: 16:33 Chief complaint: abdominal pain Narrative: Yung is a very pleasant 77-year-old gentleman who appears younger than his stated age. He reports that he was having some abdominal pain yesterday and felt nauseated but did not vomit. Fortunately, the pain subsided last night and he was able to eat something. When he awoke this morning it started again and has gotten progressively worse throughout the day. He says that when he had presented to the emergency room he would rate the abdominal pain as a 9/10. He now has been given medication he says it is some better but he still would rate it around 5. He has a history of having had bowel obstruction in 2015 secondary to a bezoar. This was repaired by Dr. Max. His history includes chronic diarrhea since 2010. He diarrhea at least twice a day and reports that he has quite a difficult time gaining weight. At the time of his repair for small bowel obstruction secondary to the bezoar, he was noted to have a very abnormal appearing terminal ileum and biopsy was undertaken. This revealed ulceration and chronic inflammation but no evidence of true inflammatory bowel disease. He was referred to Dr. Harper and multiple medications were tried but with no relief. 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 He says it improved during the period of treatment and then within 2 weeks of stopping treatment all of his symptoms recurred. He continues to have diarrhea about twice a day. Patient History Surgical History Port catheter in place Port catheter in place Status post hernia repair Family & Social History Safety & Behavioral: Feels Safe in Current Yes Environment Been Physically Hurt or No Threatened By a Person Tobacco & Substance use: Smoking Status Never smoker alcohol intake frequency 0-2 drinks per day Substance Use Type does not use Meds Home Medications Medication Instructions Recorded Confirmed Type Fish Oil 500 mg PO DAILY #0 06/24/11 09/06/18 History multivitamin [Multiple Vitamins] 1 tab PO DAILY #0 01/05/17 09/06/18 History Vitamin D3 1 cap PO DAILY 09/06/18 09/06/18 History latanoprost 1 drp OPHTHALMIC (EYE) BEDTIME 09/06/18 09/06/18 History omeprazole magnesium [Prilosec OTC] 10 mg PO DAILY 09/06/18 09/06/18 History Review of Systems Review of Systems Patient has a history of non-Hodgkin's lymphoma treated with chemotherapy and radiation treatment. He was treated by Dr. Carcamo at our facility and has no evidence of recurrence. All systems reviewed & are unremarkable except as noted in HPI and below Exam Vital Signs (past 8 hours): - 09/06/18 13:59 09/06/18 15:00 Pulse Rate 92 H 100 H Respiratory Rate 20 Blood Pressure 148/90 H Blood Pressure [Left Arm] 140/86 Pulse Oximetry 96 96 Oxygen Delivery Method Room Air Narrative Exam Narrative: Very uncomfortable appearing gentleman. He is awake and alert an oriented x3. HEENT: Normocephalic and atraumatic, pupils are equal round reactive to light and accommodation with anicteric sclera. Lungs: Clear to auscultation bilaterally Heart: Regular rate and rhythm without murmur rub or gallop Abdomen: Firm, distended, globally tender to palpation. Very quiet. No audible bowel sounds. Well-healed midline incision. Small hernia defect in the upper midline in the site of the prior incision. Not incarcerated and soft. Extremities: Warm and well perfused without evidence of edema Objective Labs Result Diagrams: 09/06/18 14:05 09/06/18 14:05 Labs: Laboratory Results - last 24 hr 09/06/18 09/06/18 14:05 14:05 WBC 8.2 RBC 5.45 Hgb 17.0 Hct 49.5 MCV 90.8 MCH 31.1 MCHC 34.3 RDW 13.9 Plt Count 217 Neut % (Auto) 75.2 H Lymph % (Auto) 14.7 L [place] % (Auto) 8.3 Eos % (Auto) 1.5 L Baso % (Auto) 0.3 Neut # (Auto) 6200 Sodium 137 Potassium 4.1 Chloride 96 L Carbon Dioxide 30 BUN 13 Creatinine 1.00 Estimated GFR > 60.0 BUN/Creatinine Ratio 13.0 Glucose 127 H Calcium 9.7 Total Bilirubin 1.3 AST 46 ALT 37 Alkaline Phosphatase 74 Total Protein 8.7 H Albumin 4.7 Globulin 4.0 Albumin/Globulin Ratio 1.[address] [place] [address], [place] [address] CT Scan Report Signed Patient: Yung Conn MR#: [id number] : 1940 Acct:[id number] Age/Sex: 77 / M Date of Service: 09/06/18 Loc: ED Accession Number: [id number] Procedure: CT abdomen pelvis w con Ordering Provider: Douglas Lucas PROCEDURE: CT ABDOMEN PELVIS W CON INDICATIONS: Abdominal bloating and pain TECHNIQUE: After the administration of intravenous contrast, 5 mm thick sections acquired from the diaphragm to the symphysis. 5 mm coronal and sagittal reformats were acquired. For radiation dose reduction, the following was used: automated exposure control, adjustment of mA and/or kV according to patient size. COMPARISON: None. FINDINGS: Image quality: Excellent. ABDOMEN: Lung bases: Scarring/atelectasis in posterior aspect of bilateral lung bases are seen. No pleural effusion or pneumothorax.. Heart size is normal. Solid organs: Liver is normal in size and enhancement. Gallbladder is within normal limits. Biliary system is non dilated. Pancreas enhances normally. Spleen is normal in size and enhancement. No adrenal nodules. Kidneys demonstrate normal size and enhancement, without hydronephrosis. 5.4 x 5.5 cm simple-appearing cyst in midpole of right kidney is seen. Peritoneum and bowel: There is a small hiatal hernia. Fluid distended stomach lumen and small bowel loops are noted throughout abdomen with intussusception of a 12 cm segment of distal ileal loop into terminal ileum and right lower quadrant best seen on axial images 63 through 81 and coronal images 27 through 34. Mild distal ileal wall thickening is seen. Colon loops are decompressed. Colon diverticulosis is seen, and no CT evidence of acute diverticulitis. No free fluid or free air. Nodes and vessels: No retroperitoneal or mesenteric adenopathy by size criteria. Aorta and inferior vena cava are normal in size. Miscellaneous: No ventral hernias. PELVIS: Genitourinary: Bladder wall thickness is normal. Enlarged prostate gland with mass effect of pleural effusion the bladder is seen. Miscellaneous: No inguinal hernias or adenopathy. Bones: No suspicious bony lesions. No vertebral body compression fractures. 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 IMPRESSION: 1. Likely ileal ileal intussusception in right lower quadrant abdomen and measures approximately 12 cm in length. Mild distal ileal wall thickening in this region is also seen. Fluid distended stomach lumen and small bowel loops with a few air-fluid levels suggestive of small bowel structures and with transition point at the site of intussusception. Decompressed colon loops. No free fluid or free air. GI correlation and possible endoscopic evaluation is recommended. 2. Enlarged prostate gland with mass effect on floor of urinary bladder. No renal stone or hydronephrosis. Right renal cyst as above. Findings were discussed with referring clinician ER at 3:55 PM on 09/06/18. Dict mild hepatic steatosis is seen. ated by: Star Valdivia M.D. on 09/06 Assessment & Plan Plan: Assessment/Plan Narrative: [age] year old gentleman with intussusception of a 12 cm segment of distal ileum. He is extremely uncomfortable and I am very concerned about ischemia of this segment. This area corresponds to the area that was previously documented as abnormal. I have discussed the risks and benefits of exploratory laparotomy with ileal resection and likely ileocolic anastomosis. The patient expressed an understanding of these risks and desired to complete the procedure.
--- NOTE | 2018-09-06 16:41 | PC.NURSE ---
Verbal order by MD to have NG tube placed under anesthesia.
[2018-09-06] MEDS: FAMOTIDINE 20 MG/50 ML PIGGYBACK 200 MG IV (16:52)
[2018-09-06] MEDS: METOCLOPRAMIDE 10 MG/2 ML INJ IV (16:53)
[2018-09-06] MEDS: TETRACAINE/BENZOCAINE/BUTAMBEN (CETACAINE) BOTTLE 1 SPRAY TOP (16:57)
[2018-09-06] MEDS: LACTATED RINGERS 1,000 ML 42 ML IV ×3 (17:00→19:27)
--- NOTE | 2018-09-06 17:01 | SUR.HOLD ---
see ER assessment for pre op status. patient awake and alert on arrival in PACU. NG insertion attempted after cetacaine spray unsuccul after multiple attempts. Dr Grande at beside assisting Fentanyl per Dr. Grande. Remain unable to advance NG past posterior notstril. small amount of bleeding noted.
[2018-09-06] MEDS: CEFOTETAN 2 GM/50 ML PIGGYBACK IV (17:43)
--- NOTE | 2018-09-06 17:52 | SUR.OPER ---
Supine on padded OR bed, head on pillow, arms secured on padded arm boards at <90 degrees abduction, legs uncrossed, safety belt at thigh, tape over blanket over lower legs. Gel pad under heels
[2018-09-06] MEDS: LIDOCAINE 1% W/EPI INJ 10 ML INJ (18:11)
[2018-09-06] MEDS: BUPIVACAINE 0.5% (PF) VIAL 30 ML INJ (18:17)
--- NOTE | 2018-09-06 20:23 | P.OP_ITS ---
Operative Date/Time/Diagnoses Date of procedure: 09/06/18 Time of procedure: 20:13 Pre-op diagnosis: Intussusception and small bowel obstruction Post-op diagnosis: same Procedure & Clinicians Procedure: Exploratory laparotomy with small-bowel resection and ileocolic anastomosis Same procedure as scheduled: Yes Indications: Acute small-bowel obstruction secondary to intussusception Surgeon: Nidia Rosario Representative Personal Service: Murray Andrea Anesthesia Type: General (Dr. Grande) Operative Notes Findings: 1. Markedly thickened and edematous distal ileum-primarily affecting the distal 20 cm 2. Thickened and foreshortened mesentery involving the distal ileum and proximal colon 3. Thin, delicate, and friable tissues Closure Type: primary Specimen(s): other (Portion of distal ileum and cecum) Estimated Blood Loss (mL): 50 Procedure in detail: After obtaining informed consent, the patient brought to the operating room and placed in the supine position on the operating table. Following successful induction of general endotracheal anesthesia, appropriate padding of all bony prominences, and placement of appropriate monitors, the abdomen was prepped and draped in the standard surgical fashion. A time-out was held per SCOAP protocol. Following infiltration with local anesthetic to create a field block, the healed midline incision was reopened and carried down through the skin and subcutaneous tissue to enter the abdomen directly. We immediately encountered distended loops of small bowel and serosanguineous peritoneal fluid. Continued evaluation and exploration revealed multiple adhesions between loops of small bowel and a phlegmonous mass in the right lower quadrant. The incision was extended inferiorly to allow better examination of the right lower quadrant. This revealed a very thickened and shortened mesentery. Any attempt to rotate the large or small bowel medially resulted in tearing of vascular structures. The right colon was mobilized along the white line of Toldt revealing the retroperitoneum. The iliac artery and right ureter were identified and gently preserved. Careful examination of the small bowel revealed a dense inflammatory process affecting the distal 20 cm with essentially normal small bowel proximal to this. The mesentery of the small bowel as well as the cecum and most of the right colon was quite thickened and foreshortened. We elected to divide the small bowel just proximal to the area of abnormality to preserve as much normally functioning bowel as possible. Likewise, we elected to divide the right colon just distal to the cecum. It is notable that the right colon was quite floppy and distended. The Harmonic scalpel was then used to divide this thickened and shortened mesentery very gently. All large blood vessels were oversewn with stick ties and clips were applied. The abnormal portion of the bowel was liberated. We now turned our attention to establishing continuity of the GI tract. We elected to perform a [id number] ileocolic anastomosis. Bowel clamps were applied gently to the distal colon and proximal small bowel to help limit the possibility of contamination. Small defects were created in the most proximal portion of the colon along the tenia and the most distal portion of the small bowel at the tip. A stapled anastomosis was then created between the distal ileum and the right colon. All portions of the anastomosis were gently oversewn with interrupted 3 0 silk sutures. Where possible, portions of mesentery or omentum were used to buttress the suture lines. The wound was now checked for hemostasis and the NG tube checked for position. The abdomen was irrigated copiously with 3 L of warm saline solution and aspirated free of all blood and particulate matter. The bowel was placed back in anatomical position and the omentum placed over the bowel to protect it. The midline incision was closed with running looped PDS sutures and internal retention sutures with 0 Vicryl were applied. The skin incision was then irrigated once again with warm saline solution. It was closed loosely with ellis and iodoform gauze was packed in between each of these clips. All sponge, needle, and instrument counts were correct at the conclusion of the case. The patient was allowed to awaken from anesthesia without difficulty and taken to the post anesthesia care unit in good condition. Complications: none Condition: stable Disposition: PACU Plan for aftercare: 1. Admit to ICU for continued observation and supportive care 2. Continue NG tube and Gann catheter 3. DISTRICT SALES LEADER for pain control 4. Continue antibiotics.
[2018-09-06] MEDS: LORazepam 2 MG/ML SYRINGE 0.25 MG IV ×2 (20:25→20:40)
--- NOTE | 2018-09-06 21:45 | SUR.PHASEI ---
Progressive improvement during PACU stay with O2 weaning to 2L NC. On transfer to ICU RA trial attempted. Only pain problem was repeated verbalizations of need to void with reminders of catheter in place. Abdomen verbalized as sore. Difficulty with 1-10 scale and a bit more somnolent towards discharge after recing Lorazepam to help with bladder complaint. HR increasing once awake but stable. Dr Grande aware. VS otherwise stable. Cognitively is grossly intact on transfer.
[2018-09-06] MEDS: DEXTROSE 5%-0.45% NS 1,000 ML 125 ML IV (22:11)
--- NOTE | 2018-09-06 22:26 | PC.NURSE ---
2114 - Patient brought to room 103 from PACU in bed by nursing staff. Alert and oriented with pleasant affect. States stomach is sore. Able to move all extremities. Large abdominal dressing C/D/I. Gann in place draining clear, yellow urine. Oriented to room and call light, call light within reach.
[2018-09-06] MEDS: PIPERACILLIN-TAZO 3.375 GM/50 ML FROZ.PIGGY IV (22:35)
[2018-09-07] VITALS (8 sets, daily range): BP systolic 108–139; BP diastolic 69–86; PULSE 86–96; RESP 16–26; TEMP 36.8–37.4; O2SAT 93–95
[2018-09-07] MEDS: PIPERACILLIN-TAZO 3.375 GM/50 ML FROZ.PIGGY IV ×4 (04:00→22:24)
[2018-09-07 05:28] LABS: Alanine Aminotransferase 37 IU/L (21-72); Albumin 3.7 g/dL (3.5-5.0); Albumin Globulin Ratio 1.2 (1.0-2.8); Alkaline Phosphatase 46 U/L (38-126); Aspartate Aminotransferase 36 IU/L (17-59); BUN Creatinine Ratio 11.1 (6-22); Bilirubin Total 1.2 mg/dL (0.2-1.3); Blood Urea Nitrogen 10 mg/dL (9-20); Calcium 8.4 mg/dL (8.4-10.2); Carbon Dioxide 25 mmol/L (22-32); Chloride 99 mmol/L (98-107); Estimated Glomerular Filt Rate > 60.0 mL/min (>60); Glucose 170 mg/dL (80-110); HEMOLYSIS < 15 (0-50); Sodium 135 mmol/L (137-145); Total Protein 6.7 g/dL (6.3-8.2)
[2018-09-07 05:32] LABS: Add Manual Diff / Slide Review NO; Basophils Percent Auto 0.1 % (0-2); Hematocrit 45.1 % (41-53); Hemoglobin 15.4 g/dL (13.5-17.5); Mean Corpuscular HGB Conc 34.1 % (30-36); Mean Corpuscular Volume 90.8 fL (80-100); Monocytes Percent Auto 6.7 % (3-14); Neutrophils Absolute Auto 9500 /uL (1500-7000); Neutrophils Percent Auto 88.2 % (50-75); Platelet Count 206 X10^3/uL (150-400); Red Blood Cell Count 4.97 X10^6/uL (4.5-5.9); Red Cell Distribution Width 14.1 % (11.6-14.8); White Blood Cell Count 10.8 X10^3/uL (4.5-11.0)
[2018-09-07] MEDS: HYDROMORPHONE PCA 6 MG/30 ML PCA.VIAL 4 MG IV (06:32)
[2018-09-07] MEDS: DEXTROSE 5%-0.45% NS 1,000 ML 125 ML IV ×2 (06:35→14:23)
--- NOTE | 2018-09-07 07:04 | PC.NURSE ---
NOC Shift: Pt POD 1 SBO RLQ ileal intussusception. Pt AAOx3, increasingly more anxious by morning. Using Diluadid CLOTH BEAMER appropriately for pain, refuses to reposition however for comfort. VSS, ST on tele. IVF's. NG LIS w/minimal dark green secretions. BT's remain quiet if at all audible. ABD soft, mildly distended. Midline incision CDI. Gann. Pt taking ice chips w/o nausea and continues to ask for drinks of actual water. Pt is NPO. ICU status.
--- NOTE | 2018-09-07 08:52 | CM.DANOTE ---
DCP: Case received, EMR reviewed and met with patient. Introduced self and role. DCP template completed with information currently available. Patient is an 86 year old male who admitted yesterday afternoon to the care of the hospitalist team. PCP: Dr. Rodriguez. Payer: confirmed: Medicare/[employer]. Patient came to hospital via family vehicle, due to severe abdominal pain. Patient has a history of small bowel obstruction. Patient holds diagnosis of Intusseption of Intestine. He had exploratory laparotomy yesterday for Acute Bowel Obstruction. Patient has an NG tube at this time. Met with patient in room, pleasant, and alert and oriented. Lives in [facility] with his . Patient also goes to [facility] for apts as well. Patient stated that he is independent and active at home. He stated that he walks a couple of miles a day. Stated, he hasn't had this problem with his bowels for quite some time. Patient is hopeful to return home when he is stable. P: DCP to continue to follow closely. Patient should be able to return home when he is medically stable. Shea Boyd RN/Ice Cream Scooper
[2018-09-07] MEDS: PANTOPRAZOLE 40 MG VIAL IV (09:18)
[2018-09-07] MEDS: ENOXAPARIN 40 MG/0.4 ML SYRINGE SUBCUT (09:18)
--- NOTE | 2018-09-07 13:55 | PC.NURSE ---
Pt up to chair - reported some dizziness intially. NG tube continues at LIS - no nausea. Taking ice chips sparingly. Foly removed at 1330 - no void yet. Pt reports good pain control from PHOTOGRAPHIC DEVELOPER AND PRINTER but states does not wish to use any more. Advised pt that it is important to take deep breaths to avoid post op complications. Using IS but unable to take a deep breath due to abdominal pain. NOted crackles bibasilar. Continued on 2L of O2 via NC to keep sats above 92%. Dressing to abdomen CDI. Bowel tones present but has not passed flatus so far. Pt returned to bed and is now resting comfortably.
[2018-09-07] MEDS: HYDROMORPHONE PCA 6 MG/30 ML PCA.VIAL IV ×2 (14:00→21:14)
--- NOTE | 2018-09-07 16:44 | PM.PN.1 ---
Subjective Date Patient Seen: 09/07/18 Time Patient Seen: 16:44 Interval history: Yung is in remarkably good spirits today. He is already sitting out of his bed and at the bedside. He says he has very little pain and only when he moves. Overall he thinks he feels better than before he was operated on. He is more clear headed now on tells me that Dr. Pelletier definitely diagnosed him with a mild case of Crohn's disease. He has lots of questions today regarding exactly what we did. He denies any nausea. Urine output has been adequate. Exam Vital Signs (past 8 hours): - 09/07/18 12:00 09/07/18 15:53 Temperature 98.2 F 98.7 F Pulse Rate 86 96 H Respiratory Rate 26 H 20 Blood Pressure 116/86 108/81 Pulse Oximetry 93 95 Oxygen Delivery Method Nasal Cannula Oxygen Flow Rate 2 Narrative Exam Narrative: Lungs: Clear bilaterally Heart: Regular rate and rhythm without murmur rub or gallop Abdomen: Soft, a few scattered bowel sounds. NG tube drainage is bilious and minimal. Wounds are clean dry and well approximated. Extremities: Warm and well perfused. Objective Labs Result Diagrams: 09/07/18 04:54 09/07/18 04:54 Labs: Laboratory Results - last 24 hr 09/06/18 09/07/18 09/07/18 21:30 04:54 04:54 WBC 10.8 RBC 4.97 Hgb 15.4 Hct 45.1 MCV 90.8 MCH 31.0 MCHC 34.1 RDW 14.1 Plt Count 206 Neut % (Auto) 88.2 H Lymph % (Auto) 5.0 L [place] % (Auto) 6.7 Eos % (Auto) 0.0 L Baso % (Auto) 0.1 Neut # (Auto) 9500 H Sodium 135 L Potassium 4.0 Chloride 99 Carbon Dioxide 25 BUN 10 Creatinine 0.90 Estimated GFR > 60.0 BUN/Creatinine Ratio 11.1 Glucose 170 H Calcium 8.4 Total Bilirubin 1.2 AST 36 ALT 37 Alkaline Phosphatase 46 Total Protein 6.7 Albumin 3.7 Globulin 3.0 Albumin/Globulin Ratio 1.2 Nasal Screen MRSA (PCR) Negative for mrsa Assessment & Plan Plan: Assessment/Plan Narrative: Postop day 1 after exploratory laparotomy with distal ileal resection. We will stop telemetry and removed Gann catheter. If the NG tube drainage continues to be minimal, we will clamp it in the morning. Check labs once again on Tuesday.
[2018-09-08] VITALS (9 sets, daily range): BP systolic 134–153; BP diastolic 78–90; PULSE 84–90; RESP 16–20; TEMP 36.6–36.9; O2SAT 90–96
[2018-09-08] MEDS: DEXTROSE 5%-0.45% NS 1,000 ML 125 ML IV ×3 (00:30→17:53)
[2018-09-08] MEDS: PIPERACILLIN-TAZO 3.375 GM/50 ML FROZ.PIGGY IV ×4 (04:13→21:23)
[2018-09-08] MEDS: HYDROMORPHONE PCA 6 MG/30 ML PCA.VIAL IV ×3 (05:23→21:26)
[2018-09-08] MEDS: PANTOPRAZOLE 40 MG VIAL IV (09:36)
[2018-09-08] MEDS: ENOXAPARIN 40 MG/0.4 ML SYRINGE SUBCUT (09:36)
--- NOTE | 2018-09-08 13:15 | PC.NURSE ---
sits at bedside to void. independent with repositioning. states, I need nourishment. I'm getting weak.
--- NOTE | 2018-09-08 19:14 | PC.NURSE ---
1900- Patient saturation is 87% on room air. Lungs are clear to auscultation. 02 on at 2 liter cannula.
--- NOTE | 2018-09-08 19:16 | PM.PNPO.1 ---
Subjective Date Patient Seen: 09/08/18 Time Patient Seen: 19:17 Interval history: Patient postop day 1 from resection of terminal ileum and cecum for an intussusception. 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 He is feeling okay. His abdomen hurts some. Feels full. He wants the NG tube out. Exam Vital Signs (past 8 hours): - 09/08/18 11:51 09/08/18 15:00 Temperature 98.5 F 98.3 F Pulse Rate 90 90 Respiratory Rate 18 20 Blood Pressure 134/79 134/79 Pulse Oximetry 91 91 Oxygen Delivery Method Nasal Cannula Oxygen Flow Rate 1.5 Narrative Exam Narrative: Good respiratory effort. His lungs are clear. Heart regular rate and rhythm without murmur gallop. Abdomen is distended and soft. I left the dressing intact. No unusual pain. Objective Labs Result Diagrams: 09/07/18 04:54 09/07/18 04:54 Assessment & Plan Post-op Postoperative Procedures Operation Date: 09/06/18 17:00 Actual Procedures Side Surgeon p Exploratory Laparotomy with Small Bowel Resection Nidia Rosario MD Postoperative status narrative: Patient doing pretty much as expected. He was hoping do that his NG tube would come out but I think he is too distended for that. Postoperative plan narrative: Will encourage to continue use of the incentive spirometer deep breathe. I will order some plain films for the morning which may be able to help Dr. Rosario with deciding on removal of his NG tube. Continue IV fluids and DVT prophylaxis.
[2018-09-09] VITALS (7 sets, daily range): BP systolic 105–139; BP diastolic 65–79; PULSE 69–82; RESP 16–18; TEMP 36.4–36.8; O2SAT 94–97
[2018-09-09] MEDS: DEXTROSE 5%-0.45% NS 1,000 ML 125 ML IV ×3 (02:44→20:42)
[2018-09-09] MEDS: PIPERACILLIN-TAZO 3.375 GM/50 ML FROZ.PIGGY IV ×4 (03:39→22:48)
[2018-09-09 05:35] LABS: Add Manual Diff / Slide Review NO; Basophils Absolute Auto 0 /uL (0-100); Basophils Percent Auto 0.2 % (0-2); Eosinophils Absolute Auto 300 /uL (0-450); Eosinophils Percent Auto 3.5 % (2-4); Hematocrit 37.6 % (41-53); Hemoglobin 12.7 g/dL (13.5-17.5); Lymphocytes Absolute Auto 1000 /uL (1100-4500); Lymphocytes Percent Auto 12.5 % (25-40); Mean Corpuscular HGB Conc 33.8 % (30-36); Mean Corpuscular Volume 91.7 fL (80-100); Monocytes Absolute Auto 600 /uL (0-900); Neutrophils Absolute Auto 6100 /uL (1500-7000); Neutrophils Percent Auto 75.8 % (50-75); Platelet Count 179 X10^3/uL (150-400); Red Cell Distribution Width 13.6 % (11.6-14.8); White Blood Cell Count 8.1 X10^3/uL (4.5-11.0)
--- NOTE | 2018-09-09 05:41 | PC.NURSE ---
Pt. denied abdominal pain all night except discomfort in his throat from the NGT, used zero with his Dilaudid MANUFACTURING ADVISOR.
[2018-09-09 05:46] LABS: Alanine Aminotransferase 28 IU/L (21-72); Albumin 3.3 g/dL (3.5-5.0); Alkaline Phosphatase 49 U/L (38-126); Aspartate Aminotransferase 27 IU/L (17-59); Bilirubin Total 1.7 mg/dL (0.2-1.3); Blood Urea Nitrogen 7 mg/dL (9-20); Calcium 8.4 mg/dL (8.4-10.2); Carbon Dioxide 29 mmol/L (22-32); Chloride 101 mmol/L (98-107); Estimated Glomerular Filt Rate > 60.0 mL/min (>60); Globulin 3.2 g/dL (1.7-4.1); Glucose 132 mg/dL (80-110); HEMOLYSIS < 15 (0-50); Potassium 3.4 mmol/L (3.4-5.1); Sodium 138 mmol/L (137-145); Total Protein 6.5 g/dL (6.3-8.2)
[2018-09-09] MEDS: HYDROMORPHONE PCA 6 MG/30 ML PCA.VIAL IV ×2 (07:25→14:33)
--- NOTE | 2018-09-09 08:00 | DI.RAD.S_ITS ---
PROCEDURE: XR ABDOMEN MIN 2V INDICATIONS: Follow-up intussusception. Postop. TECHNIQUE: 2 views of the abdomen were acquired. COMPARISON: [facility], CT, CT ABDOMEN PELVIS W CON, 09/06/2018, 15:13. FINDINGS: Surgical changes and devices: Surgical clips project over the midline of the upper pelvis. Surgical skin ellis project over the midline of the lower abdomen and pelvis. NG tube projects across the GE junction with tip in the proximal stomach Bowel: No pneumoperitoneum. Mild gaseous distention of several loops of small bowel. There is scattered air fluid levels several of which have differential height. Soft tissues: No masses; visualized solid organ contours appear normal in size. No suspicious abdominal calcifications. Bones: No suspicious bony abnormalities. IMPRESSION: Gaseous distention of several loops of small bowel with multiple air-fluid levels which could represent postoperative ileus versus partial/early small bowel obstruction. Dictated by: Shanti Barnes MD, PhD on 09/09/2018 at 9:24 Approved by: Shanti Barnes MD, PhD on 09/09/2018 at 9:27
--- NOTE | 2018-09-09 08:23 | PC.NURSE ---
Addendum entered by Daksha Clemens R.N. 09/09/18 11:46: Dr Rosario in to see patient, MD removed abdominal dressing and packing to incision. Fina intact, moderate amount dried sang drainage noted to old dressing. No active drainage or redness noted. Original Note: Pt alert, oriented, denies abdominal pain and nausea, c/o discomfort from NG tube. SBA to bathroom, patient denies flatus. BT absent. Pt ambulated in smith with SBA gait steady. Pt taken for xray.
[2018-09-09] MEDS: PANTOPRAZOLE 40 MG VIAL IV (10:10)
[2018-09-09] MEDS: ENOXAPARIN 40 MG/0.4 ML SYRINGE SUBCUT (10:10)
[2018-09-09] MEDS: ACETAMINOPHEN 650 MG SUPP PR ×2 (13:32→20:39)
--- NOTE | 2018-09-09 16:39 | PC.NURSE ---
Addendum entered by Maame Velasco R.N. 09/09/18 21:20: Remained in chair most evening. Denies discomfort. BOOMSWING OPERATOR not utilized this evening. IVF continue as per orders. Dsg CDI Stable post op course. Call light w/in reach, bed alarm on for pt safety. Continue w/plan of care. Original Note: Pt sitting in chair, denies discomfort. IVF infusing into the RFA via pump w/o incidence. NG patent/ intact on LIS. Voided 150cc onesimo urine. Call light w/in reach.
--- NOTE | 2018-09-09 17:26 | P.PN_ITS ---
Subjective Date Patient Seen: 09/09/18 Time Patient Seen: 11:24 Interval history: Yung is looking remarkably well this afternoon. He continues to have some drainage from his NG tube. He denies any nausea but reports he has not passed any gas. He is not hungry. He does say he feels as if he is going to pass gas but the nothing happens. He would very much like to have some popsicles or ice chips. He denies much pain at all. 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 Exam Vital Signs (past 8 hours): - 09/09/18 12:24 09/09/18 15:35 Temperature 97.6 F Pulse Rate 69 82 Respiratory Rate 18 17 Blood Pressure 132/75 105/77 Pulse Oximetry 95 97 Oxygen Delivery Method Room Air Oxygen Flow Rate 0 Narrative Exam Narrative: HEENT: Normocephalic and atraumatic, pupils are equal round reactive to light accommodation with anicteric sclera Lungs: Clear bilaterally Heart: Regular rate and rhythm Abdomen: Soft, dressing is removed and all packings removed. The wound is covered with dry dressings. Extremities: Warm and well perfused. Objective Labs Result Diagrams: 09/09/18 05:12 09/09/18 05:12 Labs: Laboratory Results - last 24 hr 09/09/18 09/09/18 05:12 05:12 WBC 8.1 RBC 4.10 L Hgb 12.7 L Hct 37.6 L MCV 91.7 MCH 31.0 MCHC 33.8 RDW 13.6 Plt Count 179 Neut % (Auto) 75.8 H Lymph % (Auto) 12.5 L [place] % (Auto) 8.0 Eos % (Auto) 3.5 Baso % (Auto) 0.2 Neut # (Auto) 6100 Lymph # (Auto) 1000 L [place] # (Auto) 600 Eos # (Auto) 300 Baso # (Auto) 0 Sodium 138 Potassium 3.4 Chloride 101 Carbon Dioxide 29 BUN 7 L Creatinine 1.00 Estimated GFR > 60.0 BUN/Creatinine Ratio 7.0 Glucose 132 H Calcium 8.4 Total Bilirubin 1.7 H AST 27 ALT 28 Alkaline Phosphatase 49 Total Protein 6.5 Albumin 3.3 L Globulin 3.2 Albumin/Globulin Ratio 1.0 Assessment & Plan Plan: Assessment/Plan Narrative: Wonderful gentleman making remarkable progress. I will add very low-dose Reglan to help clear of this ileus. Rectal Tylenol to help with his headaches and pain control. Continue awaiting bowel function return.
[2018-09-09] MEDS: METOCLOPRAMIDE 10 MG/2 ML INJ 5 MG IV (23:43)
[2018-09-10] MEDS: PIPERACILLIN-TAZO 3.375 GM/50 ML FROZ.PIGGY IV ×4 (03:25→21:51)
[2018-09-10] MEDS: ACETAMINOPHEN 650 MG SUPP PR ×2 (03:29→08:53)
[2018-09-10 03:41] VITALS: BP 124/66; PULSE 70; RESP 18; TEMP 36.7; O2SAT 93
[2018-09-10] MEDS: TETRACAINE/BENZOCAINE/BUTAMBEN (CETACAINE) BOTTLE 1 SPRAY TOP (04:39)
[2018-09-10] MEDS: DEXTROSE 5%-0.45% NS 1,000 ML 125 ML IV (06:13)
[2018-09-10] MEDS: HYDROMORPHONE PCA 6 MG/30 ML PCA.VIAL IV ×3 (06:14→21:57)
--- NOTE | 2018-09-10 06:51 | PC.NURSE ---
Pt's. NGT output through the night is only 50 ml greenish fluid. Abd. is slightly distended, denies abd. pain, few distant BT's heard mostly on LLQ, negative flatus, and abd. drsg. is D&I. Pt. is voiding adequate amt. Pt's. major c/o so far is not surgical pain but a headache, medicated with Tylenol suppository which took away the headache but only brief, provided ice pack for his headache. Pt. thought his headache could be due to pillow plastic cover or from NGT irritation. 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
[2018-09-10 07:30] VITALS: BP 138/77; PULSE 68; RESP 16; TEMP 36.7; O2SAT 96
[2018-09-10] MEDS: PANTOPRAZOLE 40 MG VIAL IV (08:53)
[2018-09-10] MEDS: ENOXAPARIN 40 MG/0.4 ML SYRINGE SUBCUT (08:53)
--- NOTE | 2018-09-10 09:29 | PC.NURSE ---
Addendum entered by Daksha Clemens R.N. 09/10/18 13:48: xray to check placement of NG done, reviewed by Dr Rosario. Dr Rosario states leave it alone, do not advance at this time. Original Note: Pt c/o headache and requesting tylenol suppository, given. SBA to chair gait steady. Denies abdominal pain and flatus, BT+ L>R. Dressing intact to abdomen.
[2018-09-10] MEDS: METOCLOPRAMIDE 10 MG/2 ML INJ 5 MG IV (11:38)
--- NOTE | 2018-09-10 12:11 | CM.DPC ---
DCP/cont Reviewed EMR: NG tube remains. Currently awaiting bowel functions to return. Met with patient: Patient's discharge goals are to discharge home with spouse. At this time family does not expect any discharge needs or concerns. Plan: Home when medically appropriate. CM team available as needed.
--- NOTE | 2018-09-10 12:44 | DI.RAD.S_ITS ---
PROCEDURE: XR ABDOMEN 1V INDICATIONS: check NG placement TECHNIQUE: One view of the abdomen acquired. COMPARISON: [facility], CR, XR ABDOMEN MIN 2V, 09/09/2018, 8:18. FINDINGS: Surgical changes and devices: Enteric tube tip is in the stomach lumen. Bowel: Bowel gas pattern is normal. Soft tissues: No suspicious abdominal calcifications. Visualized solid organ contours appear normal in size. Bones: No suspicious bony lesions. IMPRESSION: Enteric tube tip is in the region of stomach lumen. Dictated by: Star Valdivia M.D. on 09/10/2018 at 13:04 Approved by: Star Valdivia M.D. on 09/10/2018 at 13:04
--- NOTE | 2018-09-10 13:36 | PM.PN.1 ---
Subjective Date Patient Seen: 09/10/18 Time Patient Seen: 13:37 Interval history: Mr. Conn is in good spirits this morning. He feels activity in his belly but has not passed any flatus. He denies nausea. He is worried that his NGT has come out and says it is leaking. Exam Vital Signs (past 8 hours): - 09/10/18 07:30 Temperature 98.1 F Pulse Rate 68 Respiratory Rate 16 Blood Pressure 138/77 Pulse Oximetry 96 Oxygen Delivery Method Room Air Oxygen Flow Rate 0 Narrative Exam Narrative: Lungs are clear bilaterally CV is regular rate and rhythm Abd is softer. Hypoactive bowel tones but improved from yesterday's exam. Incision is clean and dry Ext: minimal edema Objective Labs Result Diagrams: 09/09/18 05:12 09/09/18 05:12 Assessment & Plan Plan: Assessment/Plan Narrative: Check and xray and adjust the NGT. Await bowel function. Continue ambulation
[2018-09-10] MEDS: DEXTROSE 5%-0.45% NS 1,000 ML 75 ML IV (14:40)
[2018-09-10 15:20] VITALS: BP 139/60; PULSE 75; RESP 17; TEMP 36.3; O2SAT 98
--- NOTE | 2018-09-10 17:25 | PC.NURSE ---
Addendum entered by Ellie Rush R.N. 09/10/18 19:29: 1920: Pt attempted a BM but was unsuccessful. Pt ambulated 150 ft with SBA using IV pole. Pt tolerated well. Pt eating a grape Popsicle. Original Note: Evening shift 1530: Assumed care of pt with safe hand off. Safety checks done. Pt is sitting up in chair visiting with . Pt denies pain at this time. NG tube marked with a sharpie at the tip of the left nare. VSS. Education done about needing to rotate frequently so pt does not develop a sore on his coccyx. Offered a waffle pad and an Aleven dressing. Pt refuses at this time. Pt offered some hard candies to try and help his bowels to wake up. 1600: Pt assessed. Starting to complain of gas cramps in abdomen. Refuses medication at this time. Offered to take a walk. Pt refuses at this time. Call light is with in reach and bed alarm is on.
[2018-09-11] MEDS: METOCLOPRAMIDE 10 MG/2 ML INJ 5 MG IV ×3 (00:03→23:49)
[2018-09-11 00:27] VITALS: BP 134/78; PULSE 87; RESP 16; TEMP 36.8; O2SAT 94
[2018-09-11] MEDS: PIPERACILLIN-TAZO 3.375 GM/50 ML FROZ.PIGGY IV ×4 (03:27→22:53)
[2018-09-11] MEDS: DEXTROSE 5%-0.45% NS 1,000 ML 75 ML IV ×2 (05:44→20:49)
[2018-09-11] MEDS: HYDROMORPHONE PCA 6 MG/30 ML PCA.VIAL IV ×3 (05:47→22:55)
[2018-09-11 08:00] VITALS: BP 132/78; PULSE 70; RESP 16; TEMP 36.7; O2SAT 95
[2018-09-11] MEDS: ENOXAPARIN 40 MG/0.4 ML SYRINGE SUBCUT (08:51)
[2018-09-11] MEDS: PANTOPRAZOLE 40 MG VIAL IV (08:51)
[2018-09-11] MEDS: SODIUM CHLORIDE 0.9% FLUSH 10 ML IV (08:52)
--- NOTE | 2018-09-11 09:51 | PC.NURSE ---
Addendum entered by Daksha Clemens R.N. 09/11/18 12:24: NGT has been clamped for two hours and had residual of 50cc, Dr Rosario called and notified of above. Order to keep NGT clamped at this time. Pt denies nausea and pain. Original Note: Pt ambulated around nursing floor, gait steady. Dr Rosario in to see patient, order to keep NG clamped for two hours then check residual.
[2018-09-11 18:41] VITALS: BP 137/76; PULSE 83; RESP 20; TEMP 36.6; O2SAT 95
--- NOTE | 2018-09-11 18:48 | PM.PN.1 ---
Subjective Date Patient Seen: 09/11/18 Time Patient Seen: 18:48 Interval history: Mr. Conn is feeling a little better today but has not passed any flatus. He denies any nausea and his NGT output has been minimal. The tube has been clamped for the majority of the day with a combined residual of less than 100 mL. He feels a lot of movement in his lower abdomen but nothing has happened yet. He reports his pain is well controlled and he is not uncomfortable. What bothers him the most is his nose where the tube is in place. Exam Vital Signs (past 8 hours): - 09/11/18 18:41 Temperature 97.9 F Pulse Rate 83 Respiratory Rate 20 Blood Pressure 137/76 Pulse Oximetry 95 Oxygen Delivery Method Room Air Oxygen Flow Rate 0 Narrative Exam Narrative: Lungs: Clear to auscultation bilaterally. Excellent air movement Heart: Regular rate and rhythm without murmur Abdomen: Soft, appropriately tender to palpation, active bowel sounds. Wound is clean dry and intact. No erythema. Extremities: Minimal to trace edema. Objective Labs Result Diagrams: 09/09/18 05:12 09/09/18 05:12 Assessment & Plan Plan: Assessment/Plan Narrative: Progressing but still awaiting full return of bowel function. As the tube is really given him fits tonight, I have removed it. He is going to stay NPO with hard candy and gum only. He will receive a Dulcolax suppository tonight. If he does well overnight, we may consider ice chips or clear liquids in the morning.
--- NOTE | 2018-09-11 18:58 | PC.NURSE ---
183- Dr Rosario DC'd NGT, ordered Biscodyl SUPP once now, BT hypo, mild distention, denies nausea, hard candy OK per Dr. Rosario. Indep to [facility], and ambulated in hallway.
[2018-09-11] MEDS: BISACODYL 10 MG SUPP PR (19:30)
[2018-09-11 23:45] VITALS: BP 119/69; PULSE 70; RESP 18; TEMP 36.6; O2SAT 95
[2018-09-12] MEDS: PIPERACILLIN-TAZO 3.375 GM/50 ML FROZ.PIGGY IV ×2 (03:41→09:28)
[2018-09-12] MEDS: HYDROMORPHONE PCA 6 MG/30 ML PCA.VIAL IV (06:13)
[2018-09-12] MEDS: METOCLOPRAMIDE 10 MG/2 ML INJ 5 MG IV ×3 (06:13→17:45)
[2018-09-12 07:40] VITALS: BP 126/73; PULSE 64; RESP 16; TEMP 36.7; O2SAT 94
[2018-09-12] MEDS: SODIUM CHLORIDE 0.9% FLUSH 10 ML IV (08:16)
[2018-09-12] MEDS: ENOXAPARIN 40 MG/0.4 ML SYRINGE SUBCUT (08:16)
[2018-09-12] MEDS: PANTOPRAZOLE 40 MG VIAL IV (08:16)
[2018-09-12] MEDS: DEXTROSE 5%-0.45% NS 1,000 ML 75 ML IV (11:34)
[2018-09-12 11:35] VITALS: BP 133/75; PULSE 69; RESP 16; TEMP 36.4; O2SAT 95
--- NOTE | 2018-09-12 12:23 | PM.PN.1 ---
Subjective Date Patient Seen: 09/12/18 Time Patient Seen: 12:23 Exam Vital Signs (past 8 hours): - 09/12/18 07:40 Temperature 98.0 F Pulse Rate 64 Respiratory Rate 16 Blood Pressure 126/73 Pulse Oximetry 94 Oxygen Delivery Method Room Air Oxygen Flow Rate 0 Objective Labs Result Diagrams: 09/09/18 05:12 09/09/18 05:12
[2018-09-12 16:28] VITALS: BP 130/74; PULSE 67; RESP 18; TEMP 36.4; O2SAT 96
[2018-09-12] MEDS: ACETAMINOPHEN 325 MG TABLET 650 MG PO (20:54)
[2018-09-13] MEDS: ACETAMINOPHEN 325 MG TABLET 650 MG PO ×2 (01:26→06:52)
[2018-09-13] MEDS: METOCLOPRAMIDE 10 MG/2 ML INJ 5 MG IV ×2 (01:27→06:51)
[2018-09-13 01:35] VITALS: BP 134/80; PULSE 61; RESP 16; TEMP 36.7; O2SAT 95
[2018-09-13 06:25] LABS: Add Manual Diff / Slide Review NO; BUN Creatinine Ratio 13.3 (6-22); Basophils Absolute Auto 0 /uL (0-100); Basophils Percent Auto 0.6 % (0-2); Blood Urea Nitrogen 12 mg/dL (9-20); Calcium 8.6 mg/dL (8.4-10.2); Carbon Dioxide 29 mmol/L (22-32); Chloride 102 mmol/L (98-107); Eosinophils Absolute Auto 400 /uL (0-450); Eosinophils Percent Auto 7.6 % (2-4); Estimated Glomerular Filt Rate > 60.0 mL/min (>60); Glucose 88 mg/dL (80-110); HEMOLYSIS < 15 (0-50); Hematocrit 37.2 % (41-53); Hemoglobin 12.4 g/dL (13.5-17.5); Lymphocytes Absolute Auto 1400 /uL (1100-4500); Lymphocytes Percent Auto 25.2 % (25-40); Mean Corpuscular HGB Conc 33.5 % (30-36); Mean Corpuscular Hemoglobin 30.7 PG (26-34); Mean Corpuscular Volume 91.7 fL (80-100); Monocytes Absolute Auto 800 /uL (0-900); Monocytes Percent Auto 14.2 % (3-14); Neutrophils Absolute Auto 2900 /uL (1500-7000); Neutrophils Percent Auto 52.4 % (50-75); Platelet Count 233 X10^3/uL (150-400); Red Blood Cell Count 4.06 X10^6/uL (4.5-5.9); Red Cell Distribution Width 13.6 % (11.6-14.8); Sodium 139 mmol/L (137-145); White Blood Cell Count 5.5 X10^3/uL (4.5-11.0)
[2018-09-13 08:00] VITALS: BP 131/83; PULSE 72; RESP 18; TEMP 36.5; O2SAT 96
[2018-09-13] MEDS: PANTOPRAZOLE 40 MG VIAL IV (09:45)
--- NOTE | 2018-09-13 12:14 | PM.DS.1 ---
History of Present Illness Chief complaint: abdominal pain Narrative: Yung is a very pleasant 77-year-old gentleman who appears younger than his stated age. He reports that he was having some abdominal pain yesterday and felt nauseated but did not vomit. Fortunately, the pain subsided last night and he was able to eat something. When he awoke this morning it started again and has gotten progressively worse throughout the day. He says that when he had presented to the emergency room he would rate the abdominal pain as a 9/10. He now has been given medication he says it is some better but he still would rate it around 5. He has a history of having had bowel obstruction in 2016 secondary to a bezoar. This was repaired by Dr. Max. His history includes chronic diarrhea since 2010. He diarrhea at least twice a day and reports that he has quite a difficult time gaining weight. At the time of his repair for small bowel obstruction secondary to the bezoar, he was noted to have a very abnormal appearing terminal ileum and biopsy was undertaken. This revealed ulceration and chronic inflammation but no evidence of true inflammatory bowel disease. He was referred to Dr. Harper and multiple medications were tried but with no relief. 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 He says it improved during the period of treatment and then within 2 weeks of stopping treatment all of his symptoms recurred. He continues to have diarrhea about twice a day. Discharge Providers Date of admission: 09/06/18 16:19 Primary care physician: Rena Bowen DO Consults: 09/06/18 21:33 Consult to Discharge Planning Routine Comment: 09/06/18 22:08 Consult to Respiratory Therapy Evaluate & Treat Comment: Physician Instructions: Evaluate and treat 09/06/18 22:20 Consult to Changeover Operator Routine Comment: Discharge provider: Nidia Rosario MD Discharge Date: 09/13/18 Summary Discharge Diagnosis: Bowel obstruction secondary to ileal inflammation and intussusception in a patient with Crohn's disease Mild postoperative ileus after bowel resection Hospital Course: Yung was admitted and taken immediately to the operating room where he underwent limited distal ileal and cecal resection. This was followed by primary anastomosis. He did extremely well postoperatively and had an uneventful course. His bowel function was somewhat slow to return with a very mild postoperative ileus. Today this has resolved. He is tolerating a regular diet without difficulty. He is walking the halls unassisted. He is taking no pain medicine other than Tylenol. He is discharged to his home in care of his family. He will follow up with me in 2 weeks. Restriction will include no lifting more than 5 lb for the next 2 months. Status at Discharge Cognitive/behavioral status at discharge: Normal Functional status at discharge: independent ambulation Overall status at discharge: patient is progressing back to baseline Time Spent with Patient Less than 30 minutes Exam Vital Signs (past 8 hours): - 09/13/18 08:00 Temperature 97.7 F Pulse Rate 72 Respiratory Rate 18 Blood Pressure 131/83 Pulse Oximetry 96 Oxygen Delivery Method Room Air Oxygen Flow Rate 0 Objective Labs Result Diagrams: 09/13/18 05:44 09/13/18 05:44 Labs: Laboratory Results - last 24 hr 09/13/18 09/13/18 05:44 05:44 WBC 5.5 RBC 4.06 L Hgb 12.4 L Hct 37.2 L MCV 91.7 MCH 30.7 MCHC 33.5 RDW 13.6 Plt Count 233 Neut % (Auto) 52.4 Lymph % (Auto) 25.2 [place] % (Auto) 14.2 H Eos % (Auto) 7.6 H Baso % (Auto) 0.6 Neut # (Auto) 2900 Lymph # (Auto) 1400 [place] # (Auto) 800 Eos # (Auto) 400 Baso # (Auto) 0 Sodium 139 Potassium 3.0 L Chloride 102 Carbon Dioxide 29 BUN 12 Creatinine 0.90 Estimated GFR > 60.0 BUN/Creatinine Ratio 13.3 Glucose 88 Calcium 8.6 Discharge Plan Discharge Plan Patient Disposition: Home Discharge Med Rec/Prescriptions Prescriptions: Continue Fish Oil 500 mg PO DAILY Qty: 0 RF: 0 multivitamin [Multiple Vitamins] 1 EACH tablet 1 tab PO DAILY Qty: 0 RF: 0 latanoprost 0.005 % drops 1 drp ophthalmic (eye) BEDTIME RF: 0 omeprazole magnesium [Prilosec OTC] 20 mg Tablet,Delayed Release (Dr/Ec) 10 mg PO DAILY RF: 0 Vitamin D3 1 cap PO DAILY RF: 0 Follow up/Referrals: Nidia Rosario MD [Physician] - 2 Weeks Provider Discharge Instructions Diet: Diet as Tolerated Skin/Wound/Dressing Care Report to your healthcare provider any signs of infection, such as:: chills, fever, night sweats, increased pain, unusual drainage and unusual redness Visit Report/Discharge Packet Instructions: Low-Fiber/Low-Residue Diet, DI for Small Bowel Resection, DI for Diarrhea and Traveler's Diarrhea -- Adult Discharge Data Primary Care Provider: Rena Bowen Attending Provider: Nidia Rosario Admit Date/Time: 09/06/18 16:19
--- NOTE | 2018-09-13 13:17 | CM.DPC ---
DCP Discharge Home Per Surgeon, pt is medically stable to d/c home with family support today and no identified barriers to discharge. Per RN, no concerns at this time. Plan: Patient to d/c home via family POV today and no SW needs at this time. YA Garrison
--- NOTE | 2018-09-13 18:08 | PC.NURSE ---
Janessa shift note: Patient discharged home via private vehicle with . Verbalized understanding of discharge instructions, discussed importance of F/U with PMD and new prescription sent pharmacy by Dr. Rosario. Patient ambulating independently, VSS and afebrile.
== END 2018-09-13 16:00 | disposition home or self-care (01) | DRG 330 ==
LOC: ED 14:51 → AC 16:20 → ICU 20:04 → AC 09-08 20:40
PROVIDERS: Emergency Medicine; Specialist; Admitting Provider Surgery; Emergency Provider Nurse Practitioner Family; PCP Family Medicine; Visit Provider Surgery
PROC: 0DBB0ZZ Excision of Ileum, Open Approach (ICD-10-PCS; CPT 49000; principal; 2018-09-06 17:00)
DX: K56.1 Intussusception (principal); K50.014 Crohn's disease of small intestine with abscess; K56.7 Ileus, unspecified; Z85.72 Personal history of non-Hodgkin lymphomas
CPT/HCPCS: 36415; 36591; 74018; 74019; 74177; 80048; 80053; 83690; 85025; 87797; 88307; 94760; 96361; 96374; 96375; 99282; 99285; C9113; J0330; J1100; J1170; J1650; J2060; J2250; J2405; J2543; J2704; J2765; J3010; Q9967

== ENCOUNTER 2018-10-05 22:58 | Emergency (ER) | payer MEDICARE, SELFPAY ==
[2018-09-06 22:15] VITALS: BMI 23.4
[2018-10-05 23:00] VITALS: BP 161/99; PULSE 77; RESP 18; TEMP 36.9; O2SAT 96; BMI 21.4
--- NOTE | 2018-10-06 00:15 | ED_ITS ---
HPI - Neck Pain/Injury General Chief Complaint: Neck Pain/Injury Stated Complaint: Neck Pain Time Seen by Provider: 10/05/18 23:59 Source: patient, family and old records reviewed Mode of arrival: ambulatory History of Present Illness HPI Narrative: Patient is a 77-year-old male who presents with neck pain. Says it started to hurt a little bit last evening before he went to bed when he woke up in the morning he felt like it had gotten a little bit worse and has progressed throughout the day. He denies any fall or traumatic injury. He has no numbness or tingling in his upper extremities. He has significant decreased range of motion due to pain. He says he did take Aleve without any relief. He has no headache or visual changes no fever. MD complaint: neck pain Onset (ago): day(s) Related Data Home Medications Medication Instructions Recorded Confirmed Fish Oil 500 mg PO DAILY #0 06/24/11 09/29/18 multivitamin [Multiple Vitamins] 1 tab PO DAILY #0 01/05/17 09/29/18 Vitamin D3 1 cap PO DAILY 09/06/18 09/29/18 latanoprost 1 drp OPHTHALMIC (EYE) BEDTIME 09/06/18 09/29/18 omeprazole magnesium [Prilosec OTC] 10 mg PO DAILY 09/06/18 09/29/18 Previous Rx's Medication Instructions Recorded oxycodone-acetaminophen 5 mg-325 See Rx Instructions PO Q4-6H PRN 09/16/18 mg tablet #[address]-ER 9 mg 9 mg PO DAILY #30 each 09/25/18 tablet,delayed and extended release tramadol 50 mg PO Q6H PRN #10 tab 10/06/18 Allergies Allergy/AdvReac Type Severity Reaction Status Date / Time No Known Drug Allergies Allergy Verified 09/29/18 15:13 Review of Systems Review of Systems ROS Unobtainable: All systems reviewed & are unremarkable except as noted in HPI and below Constitutional Denies chills, Denies fever(s), Denies lethargy and Denies weakness Eyes Denies change in vision, Denies eye discharge, Denies irritation and Denies loss of vision ENT Ears, Nose, Mouth, and Throat: Denies change in voice, Denies vertigo, Denies dizziness, Reports neck pain and Denies sore throat Cardiovascular Denies chest pain, Denies irregular heart rhythm, Denies lightheadedness, Denies palpitations, Denies dyspnea, Denies dyspnea on exertion and Denies orthopnea Respiratory Denies cough, Denies dyspnea, Denies dyspnea on exertion and Denies wheezing Gastrointestinal Gastrointestinal: Denies abdominal pain, Denies change in bowel habits, Denies diarrhea, Denies nausea and Denies vomiting Musculoskeletal Reports neck pain Integumentary/Breasts Denies pruritus, Denies erythema, Denies rash and Denies wounds Neurologic Denies vertigo, Denies dizziness, Denies loss of vision and Denies weakness Endocrine Denies palpitations Allergic/Immunologic Denies wheezing FORMERLY [facility], 1928–1983 Social History household members: spouse Smoking Status: Never smoker alcohol intake: current Exam Initial Vital Signs Initial Vital Signs: Vital Signs Temperature 98.5 F 10/05/18 23:00 Pulse Rate 77 10/05/18 23:00 Respiratory Rate 18 10/05/18 23:00 Blood Pressure 161/99 H 10/05/18 23:00 Pulse Oximetry 96 10/05/18 23:00 GENERAL: Alert elderly male appears in pain of no acute distress cooperative HEENT: Head atraumatic,EOMI, pupils reactive, face symmetric, NECK: No midline or vertebral tenderness. Significant decreased range of motion in rotation. Non tender to touch and paracervical muscle CARDIOVASCULAR: Regular rate and rhythm without murmurs, rubs or gallops. RESPIRATORY: Breath sounds equal bilaterally, no wheezes rales or rhonchi. ABDOMEN: Soft, nontender. Normoactive bowel sounds all 4 quadrants. No guarding or rebound. EXTREMITIES: Normal range of motion, no clubbing or edema. Neurovascularly intact NEUROLOGICAL: Alert and oriented x4.Normal gait and speech. Cranial nerves II through XII grossly intact. SKIN: Warm, dry, no laceration, no petechiae, no rashes or lesions. Course Orders Ordered: Discontinued Medications Ketorolac Tromethamine (Toradol) 30 mg IM NOW ONE Stop: 10/06/18 00:06 Last Admin: 10/06/18 00:16 Dose: 30 mg Tramadol HCl (Ultram 50mg Prepack) 1 bottle MISC SEEINSTR ONE Stop: 10/06/18 00:56 Last Admin: 10/06/18 01:07 Dose: 1 bottle Vital Signs - 8 hr 10/05/18 23:00 10/06/18 01:12 Temperature 98.5 F Pulse Rate 77 76 Respiratory Rate 18 18 Blood Pressure 161/99 H 150/80 H Pulse Oximetry 96 98 MDM - Neck Pain/Injury MDM Narrative Medical decision making narrative: The patient is feeling better after Toradol. No injury this is likely musculoskeletal. His obvious decreased range of motion. No headache or visual changes. At this time I see no need for any additional testing or imaging. Discharge Plan Departure Patient Disposition: Home Clinical Impression: Cervical muscle strain Qualifiers: Encounter type: initial encounter Qualified Code(s): S16.1XXA - Strain of muscle, fascia and tendon at neck level, initial encounter Discharge Date/Time: 10/06/18 01:12 Interventions: ED Discharge Assessment Last Done: 10/06/18 01:12 Instructions: DI for Cervical Muscle Strain Activity Restrictions/Additional Instructions: *You have been diagnosed with cervical strain *What to do: Heating pad, increase activity as tolerated *Continue to take medications as directed Tramadol 1/2 to 1 full tablet every 6 hr if needed for severe pain--> do not drive or operate heavy machinery Aleve up to 500 mg twice a day Tylenol 650 mg every 4-6 hours if needed pain *Follow up with your primary care provider in 2-3 days *Return to ER if you should have increased pain, numbness, tingling or any new, worsening or concerning symptoms Prescriptions: New tramadol 50 mg tablet 50 mg PO Q6H PRN (Reason: pain) Qty: 10 RF: 0 No Action Fish Oil 500 mg PO DAILY Qty: 0 RF: 0 multivitamin [Multiple Vitamins] 1 EACH tablet 1 tab PO DAILY Qty: 0 RF: 0 oxycodone-acetaminophen [Percocet] 5-325 mg tablet See Rx Instructions PO Q4-6H PRN (Reason: painful procedure) Qty: 14 RF: 0 budesonide 9 mg tablet,delayed and ext.release 9 mg PO DAILY Qty: 30 RF: 0 latanoprost 0.005 % drops 1 drp ophthalmic (eye) BEDTIME RF: 0 omeprazole magnesium [Prilosec OTC] 20 mg Tablet,Delayed Release (Dr/Ec) 10 mg PO DAILY RF: 0 Vitamin D3 1 cap PO DAILY RF: 0 Referrals: Rena Bowen DO [Primary Care Provider] -
[2018-10-06] MEDS: KETOROLAC 60 MG/2 ML VIAL 30 MG IM (00:16)
[2018-10-06] MEDS: TRAMADOL 50 MG PREPACK 1 BOTTLE MISC (01:07)
[2018-10-06 01:12] VITALS: BP 150/80; PULSE 76; RESP 18; O2SAT 98
== END 2018-10-06 01:12 | disposition home or self-care (01) ==
PROVIDERS: Emergency Provider Emergency Medicine; PCP Family Medicine
DX: S16.1XXA Strain of muscle, fascia and tendon at neck level, initial encounter (principal)
CPT/HCPCS: 96372; 99282; 99283; J1885

== ENCOUNTER 2018-11-07 08:58 | Day surgery (SDC) | payer MEDICARE, SELFPAY ==
[2018-09-06 22:15] VITALS: BMI 23.4
[2018-11-07 09:40] VITALS: BP 153/86; PULSE 70; RESP 20; TEMP 37; O2SAT 98; BMI 21.9
[2018-11-07] MEDS: PROPARACAINE 0.5% OPHTH SOL 2 DROPS EYE-OP (09:40)
[2018-11-07] MEDS: CATARACT EYE COMPOUND (10 DROPS/SYRINGE) 3 DROPS EYE-OP (09:45)
--- NOTE | 2018-11-07 10:57 | PM.PREOP ---
Pre-operative Note Interval Note History & Physical reviewed/Exam performed by Physician: No Changes to H&P: No
--- NOTE | 2018-11-07 10:57 | PM.OP.1 ---
Operative Date/Time/Diagnoses Pre-op diagnosis: Nuclear cataract right eye Procedure & Clinicians Procedure: Cataract Surgery Same procedure as scheduled: Yes Surgeon: Mj Frost Anesthesia Type: MAC +/- and Sedation Operative Notes Procedure in detail: Patient brought to the operating suite. Tetracaine drops placed in the right eye. Patient was prepped and draped in sterile manner. Wire lid speculum was placed in the eye. Betadine drops were placed on the eye. This was irrigated. Lidocaine jelly was placed on the eye. A paracentesis port was created with a side-port blade. 0.1 mL 1% preservative free lidocaine was injected into the anterior chamber. The anterior chamber was deepened with viscoelastic. 2.6 mm keratome was used to create a temporal clear corneal incision. Cystotome and Utrata forceps were used to create continuous tear capsulorrhexis. Balanced salt solution was used to hydro dissect the nucleus. The phacoemulsification handpiece was inserted and the nucleus was removed using the stop and chop technique. The irrigation aspiration handpiece was inserted and the remaining cortex was removed. Anterior chamber was deepened with viscoelastic. An Tran ZCB00 intraocular lens with a power of 22.0 was injected into the capsular bag. Irrigation aspiration handpiece was inserted and the remaining viscoelastic was removed. Incision was hydrated with balanced salt solution and found to be leak free with pressure with Weck-Divine sponges. 0.1 mL Vigamox injected anterior chamber. 0.3 mL Kenalog 10 mg was injected subconjunctivally. Lid speculum was removed. The patient left the operating room in excellent condition. Complications: none Condition: stable Disposition: same day surgery
[2018-11-07] MEDS: LIDOCAINE JELLY 2% 5 ML 1 APPLIC TOP (11:12)
[2018-11-07] MEDS: MOXIFLOXACIN OPHTH DROPS 3 ML BOTTLE 2 DROPS INJ (11:12)
[2018-11-07] MEDS: CHONDROIDTIN/SOD HYALURONATE 1.05 ML SYRINGE INTRAOCULA (11:12)
[2018-11-07] MEDS: TETRACAINE 0.5% OPHTH DROPS 4 ML 2 DROPS EYE-OP (11:13)
[2018-11-07] MEDS: TRIAMCINOLONE 50 MG/5 ML VIAL INJ (11:13)
[2018-11-07] MEDS: PHENYLEPHRINE/LIDOCAINE VIAL (OR) 0.2 ML EYE-OP (11:13)
[2018-11-07] MEDS: BALANCED SALT IRRIG SOLN NO.2 500 ML, EPINEPHrine 1 MG IRR (11:14)
[2018-11-07 11:27] VITALS: BP 140/82; PULSE 81; RESP 15; TEMP 36.4; O2SAT 96
== END 2018-11-07 11:52 | disposition home or self-care (01) ==
PROVIDERS: PCP Family Medicine; Visit Provider Ophthalmology
DX: H25.11 Age-related nuclear cataract, right eye (principal); G44.209 Tension-type headache, unspecified, not intractable
CPT/HCPCS: J0171; J2250; J3010; J3301

== ENCOUNTER 2019-03-27 21:01 | Emergency (ER) | payer MEDICARE, SELFPAY ==
[2018-09-06 22:15] VITALS: BMI 23.4
[2019-03-27 21:11] VITALS: BP 158/82; PULSE 82; RESP 14; TEMP 36.6; O2SAT 95; BMI 23.3
--- NOTE | 2019-03-27 21:28 | ED_ITS ---
HPI - GI Bleed General Chief complaint: GI Bleed Stated complaint: BLOODY DIARRHEA Time Seen by Provider: 03/27/19 21:10 Source: patient Mode of arrival: ambulatory Limitations: no limitations History of Present Illness HPI Narrative: 78-year-old male here for evaluation of bright red blood per rectum. Patient states that it started approximately 0500 hours this afternoon. States the 1st episode was blood mixed with stool and since then has been purely bright red blood. Does have some abdominal cramping associated with. No urinary symptoms. No vomiting. No fevers. Back in August this year patient underwent a laparotomy secondary to Bowel obstruction secondary to ileal inflammation and intussuscept he underwent a limited distal ileal and cecal resection. This was followed by primary anastomosis. Patient not on anticoagulation. Related Data Home Medications Medication Instructions Recorded Confirmed Fish Oil 500 mg PO DAILY #0 06/24/11 09/29/18 multivitamin [Multiple Vitamins] 1 tab PO DAILY #0 01/05/17 09/29/18 Vitamin D3 1 cap PO DAILY 09/06/18 09/29/18 latanoprost 1 drp OPHTHALMIC (EYE) BEDTIME 09/06/18 09/29/18 omeprazole magnesium [Prilosec OTC] 10 mg PO DAILY 09/06/18 09/29/18 Previous Rx's Medication Instructions Recorded oxycodone-acetaminophen 5 mg-325 See Rx Instructions PO Q4-6H PRN 09/16/18 mg tablet #[address]-ER 9 mg 9 mg PO DAILY #30 each 09/25/18 tablet,delayed and extended release tramadol 50 mg PO Q6H PRN #10 tab 10/06/18 Allergies Allergy/AdvReac Type Severity Reaction Status Date / Time No Known Drug Allergies Allergy Verified 03/27/19 21:11 Review of Systems Constitutional Denies fever(s) and Denies headache(s) ENT Ears, Nose, Mouth, and Throat: Denies headache(s) Cardiovascular Denies chest pain and Denies dyspnea Respiratory Denies dyspnea and Denies stridor Gastrointestinal Gastrointestinal: Reports abdominal pain, Reports diarrhea, Denies nausea and Denies vomiting Comments: Bright red blood per rectum Genitourinary Denies dysuria Musculoskeletal Denies myalgias and Denies arthralgias Integumentary/Breasts Denies lesions and Denies rash Neurologic Denies behavioral changes and Denies headache(s) Psychiatric Denies behavioral changes Hematologic/Lymphatic Denies easy bleeding and Denies easy bruising Allergic/Immunologic Denies urticaria PFSH Medical History BPH (benign prostatic hyperplasia) (Acute) Non Hodgkin's lymphoma (Acute) Small bowel obstruction (Acute) Surgical History History of bowel resection (Acute) Port catheter in place Port catheter in place Status post hernia repair Social History household members: spouse Smoking Status: Never smoker alcohol intake: current Social History household members: spouse Smoking Status: Never smoker alcohol intake: current Exam Initial Vital Signs Initial Vital Signs: Vital Signs Temperature 97.8 F 03/27/19 21:11 Pulse Rate 82 03/27/19 21:11 Respiratory Rate 14 03/27/19 21:11 Blood Pressure 158/82 H 03/27/19 21:11 Pulse Oximetry 95 03/27/19 21:11 Const General: cooperative, comfortable, well developed, well groomed and No acute distress Orientation: alert, awake and oriented x3 HENMT Head: normal to inspection and normocephalic Mouth: oral mucosae normal Resp Effort & Inspection: normal respiratory effort Auscultation: clear to auscultation bilaterally Cardio Rate: regular rate Rhythm: regular rhythm Pulses: radial pulses present GI Inspection: non-distended Palpation: soft, No firm and No tender Rectal Exam: normal sphincter tone, heme positive stool, No hemorrhoids, No laceration and No lesions Back/Spine/Pelvis Back: No CVA tenderness Skin Lesions: no lesions Rashes: no rashes Neuro General: alert and awake Cognition: normal cognition Speech: speech normal Motor: muscle tone normal throughout Extrem General: normal to inspection and capillary refill normal Psych Appearance: grossly normal and well kempt Course Orders Ordered: ED Orders 03/27/19 21:25 Complete Blood Count AUTO DIFF Stat Comprehensive Metabolic Panel Stat Partial Thromboplastin Time Stat Prothrombin Time INR Stat Type and Screen Stat 03/27/19 21:30 CT abdomen pelvis w con Stat 03/28/19 00:05 Hemoglobin and Hematocrit Stat 03/28/19 00:08 Packed Cells Stat Sodium Chloride (Normal Saline 0.9%) 1,000 mls @ 150 mls/hr IV CONT DANIEL Last Infusion: 03/28/19 01:40 Dose: 0 mls/hr Infusion: 03/28/19 00:07 Dose: 500 mls/hr Admin: 03/27/19 21:54 Dose: 150 mls/hr Vital Signs - 8 hr 03/27/19 21:11 03/27/19 21:45 03/27/19 22:00 Temperature 97.8 F Pulse Rate 82 85 77 Respiratory Rate 14 17 17 Blood Pressure 158/82 H Blood Pressure [Left Arm] 123/77 111/69 Pulse Oximetry 95 94 94 03/27/19 22:30 03/27/19 23:00 03/27/19 23:30 Temperature Pulse Rate 77 83 81 Respiratory Rate 16 17 17 Blood Pressure Blood Pressure [Left Arm] 121/71 111/66 118/74 Pulse Oximetry 95 96 96 03/28/19 00:15 03/28/19 00:25 03/28/19 00:49 Temperature Pulse Rate 71 71 75 Respiratory Rate 18 Blood Pressure Blood Pressure [Left Arm] 99/63 98/65 102/65 Pulse Oximetry 95 95 03/28/19 01:05 03/28/19 01:17 03/28/19 01:30 Temperature Pulse Rate 70 79 77 Respiratory Rate 14 17 Blood Pressure Blood Pressure [Left Arm] 87/56 L 83/49 L 103/56 L Pulse Oximetry 96 97 98 03/28/19 01:35 03/28/19 01:52 03/28/19 02:24 Temperature 97.7 F 97.8 F Pulse Rate 79 76 75 Respiratory Rate 18 17 16 Blood Pressure 103/56 L 103/50 L 90/57 L Blood Pressure [Left Arm] Pulse Oximetry 03/28/19 02:44 03/28/19 02:45 03/28/19 03:12 Temperature 98.6 F Pulse Rate 73 81 79 Respiratory Rate 16 17 15 Blood Pressure 106/69 Blood Pressure [Left Arm] 93/53 L 91/54 L Pulse Oximetry 95 95 MDM - GI Bleed Medical Records Attestation: I reviewed the patient's medical records. Lab Data Attestation: I reviewed the patient's lab results. Result diagrams: 03/28/19 00:05 03/27/19 21:25 Lab Results 03/27/19 03/27/19 03/27/19 Range/Units 21:25 21:25 21:25 WBC 7.8 (4.5-11.0) X10^3/uL RBC 4.40 L (4.5-5.9) X10^6/uL Hgb 13.6 (13.5-17.5) g/dL Hct 40.5 L (41-53) % MCV 92.0 (80-100) fL MCH 30.9 (26-34) PG MCHC 33.6 (30-36) % RDW 15.4 H (11.6-14.8) % Plt Count 264 (150-400) X10^3/uL Neut % (Auto) 55.7 (50-75) % Lymph % (Auto) 28.7 (25-40) % [place] % (Auto) 10.8 (3-14) % Eos % (Auto) 4.3 H (2-4) % Baso % (Auto) 0.5 (0-2) % Neut # (Auto) 4300 (4463-9118) /uL Lymph # (Auto) 2200 (7697-6591) /uL [place] # (Auto) 800 (0-900) /uL Eos # (Auto) 300 (0-450) /uL Baso # (Auto) 0 (0-100) /uL PT 10.9 (10.1-12.7) SECONDS INR 0.9 (0.9-1.3) APTT 37 H (26.4-36.2) SECONDS Sodium 135 L (137-145) mmol/L Potassium 4.4 (3.4-5.1) mmol/L Chloride 100 (98-107) mmol/L Carbon Dioxide 26 (22-32) mmol/L BUN 14 (9-20) mg/dL Creatinine 0.80 (0.66-1.25) mg/dL Estimated GFR > 60.0 (>60) mL/min BUN/Creatinine Ratio 17.5 (6-22) Glucose 121 H (80-110) mg/dL Calcium 9.2 (8.4-10.2) mg/dL Total Bilirubin 0.5 (0.2-1.3) mg/dL AST 38 (17-59) IU/L ALT 24 (21-72) IU/L Alkaline Phosphatase 66 (38-126) U/L Total Protein 7.6 (6.3-8.2) g/dL Albumin 4.1 (3.5-5.0) g/dL Globulin 3.5 (1.7-4.1) g/dL Albumin/Globulin Ratio 1.2 (1.0-2.8) Blood Type Antibody Screen Crossmatch 03/27/19 03/28/19 Range/Units 21:25 00:05 WBC (4.5-11.0) X10^3/uL RBC (4.5-5.9) X10^6/uL Hgb 11.7 L (13.5-17.5) g/dL Hct 34.4 L (41-53) % MCV (80-100) fL MCH (26-34) PG MCHC (30-36) % RDW (11.6-14.8) % Plt Count (150-400) X10^3/uL Neut % (Auto) (50-75) % Lymph % (Auto) (25-40) % [place] % (Auto) (3-14) % Eos % (Auto) (2-4) % Baso % (Auto) (0-2) % Neut # (Auto) (0951-6627) /uL Lymph # (Auto) (5831-5951) /uL [place] # (Auto) (0-900) /uL Eos # (Auto) (0-450) /uL Baso # (Auto) (0-100) /uL PT (10.1-12.7) SECONDS INR (0.9-1.3) APTT (26.4-36.2) SECONDS Sodium (137-145) mmol/L Potassium (3.4-5.1) mmol/L Chloride (98-107) mmol/L Carbon Dioxide (22-32) mmol/L BUN (9-20) mg/dL Creatinine (0.66-1.25) mg/dL Estimated GFR (>60) mL/min BUN/Creatinine Ratio (6-22) Glucose (80-110) mg/dL Calcium (8.4-10.2) mg/dL Total Bilirubin (0.2-1.3) mg/dL AST (17-59) IU/L ALT (21-72) IU/L Alkaline Phosphatase (38-126) U/L Total Protein (6.3-8.2) g/dL Albumin (3.5-5.0) g/dL Globulin (1.7-4.1) g/dL Albumin/Globulin Ratio (1.0-2.8) Blood Type A Positive Antibody Screen Negative Crossmatch See Detail Imaging Data CT scan - abdomen: Radiologist's impression: Read by real Radiology Likely active hemorrhage within the cecum and ascending colon. Mild inflammatory changes surrounding the cecum unlikely appendiceal stump. No organizing drainable fluid collection. Mild to moderate colonic diverticulosis without evidence of diverticulitis. ECG Data Attestation: I personally reviewed and interpreted this ECG as follows: Prior ECG tracings: not available for review Interpretation: Sinus rhythm Ventricular rate 85 Right bundle branch block Normal QRS No ST T wave changes MDM Narrative Medical decision making narrative: Discussed the case with Dr. Willard with General surgery here at the hospital who states that the patient would be better off at a facility that has interventional Radiology/GI capabilities given the findings on the CT scan. Discussed the case with [facility] who stated that they do not have overnight interventional Radiology capability. [facility] stated the same. [facility] has no bed availability. [facility] has no bed availability. [facility] has no bed availability. [facility] is no bed availability. [facility] stated that they do not have overnight Interventional Radiology. I discussed the case with Dr. Kaminski the ICU attending the [facility] who accepts the patient for transport. I then discussed the case with Dr. Fry with GI at the [facility] who agrees to see the patient upon his arrival. Upon arrival patient was not tachycardic. Was not hypotensive. Was asymptomatic except for the bright red blood per rectum. Patient had multiple episodes of large bloody bowel movements here in the e mergency department. After 1 episode of large bowel movement patient became symptomatic and almost passed out while sitting on the toilet. When he was brought back to the [facility] and laid down he felt much better. His heart rate continued to be less than 100 however patient's blood pressure continued to decline. Packed red blood cells were administered given his symptoms and also his decrease in blood pressure. Repeat hemoglobin hematocrit does show a decrease and this does fit with his symptoms and also the active bleeding on the CT scan. Patient is currently stable for transport however do feel that air transport is needed given his current situation. I do feel that transport to a facility that has GI capability and potential interventional radiology capabilities needed. I discussed the transport with the patient who expressed understanding and agreement. Discharge Plan Departure Patient Disposition: [facility] Clinical Impression: Acute GI bleeding Prescriptions: No Action Fish Oil 500 mg PO DAILY Qty: 0 RF: 0 multivitamin [Multiple Vitamins] 1 EACH tablet 1 tab PO DAILY Qty: 0 RF: 0 oxycodone-acetaminophen [Percocet] 5-325 mg tablet See Rx Instructions PO Q4-6H PRN (Reason: painful procedure) Qty: 14 RF: 0 budesonide 9 mg tablet,delayed and ext.release 9 mg PO DAILY Qty: 30 RF: 0 latanoprost 0.005 % drops 1 drp ophthalmic (eye) BEDTIME RF: 0 omeprazole magnesium [Prilosec OTC] 20 mg Tablet,Delayed Release (Dr/Ec) 10 mg PO DAILY RF: 0 Vitamin D3 1 cap PO DAILY RF: 0 tramadol 50 mg tablet 50 mg PO Q6H PRN (Reason: pain) Qty: 10 RF: 0
--- NOTE | 2019-03-27 21:30 | DI.CT.S_ITS ---
PROCEDURE: CT ABDOMEN PELVIS W CON INDICATIONS: Rectal bleeding with history of bowel obstruction TECHNIQUE: After the administration of intravenous contrast, 5 mm thick sections acquired from the diaphragm to the symphysis. 5 mm coronal and sagittal reformats were acquired. For radiation dose reduction, the following was used: automated exposure control, adjustment of mA and/or kV according to patient size. COMPARISON: [facility], CT, CT ABDOMEN PELVIS W CON, 09/06/2018, 15:13. FINDINGS: Image quality: Excellent. ABDOMEN: Lung bases: Bibasilar scarring/atelectasis is seen. Heart size is enlarged, no pericardial effusion. Solid organs: Liver is normal in size and enhancement. There is mild hepatic steatosis. Gallbladder is unremarkable.. Biliary system is non dilated. Pancreas enhances normally. Spleen is normal in size and enhancement. No adrenal nodules. Kidneys demonstrate normal size and enhancement, without hydronephrosis. 5.6 x 5.8 cm slightly lobulated cyst in upper to mid pole of right kidney is seen with peripheral calcification, not significantly changed from previous study. Peritoneum and bowel: Postsurgical changes are noted in right lower quadrant abdomen with suture material and surgical clips seen. Hyperdense material is noted within cecum and proximal ascending colon concerning for active hemorrhage. Mild ileocecal wall thickening is seen with surrounding mesenteric fat stranding. No peritoneal free fluid or free air. Sigmoid diverticulosis is seen, no suggestive of acute diverticulitis. No evidence of bowel obstruction. Small hiatal hernia is seen. Nodes and vessels: No retroperitoneal or mesenteric adenopathy by size criteria. Aorta and inferior vena cava are normal in size. Atherosclerotic calcifications throughout dominal aorta is seen. Miscellaneous: No ventral hernias. PELVIS: Genitourinary: Bladder wall thickness is normal. Enlarged prostate gland with mass effect on floor of urinary bladder is noted. Miscellaneous: No inguinal hernias or adenopathy. Bones: No suspicious bony lesions. No vertebral body compression fractures. IMPRESSION: 1. Hyperdensity within lumen of cecum and proximal ascending colon concerning for active hemorrhage. 2. Fat stranding and wall thickening involving ileocecal junction, with surgical sutures and clips seen. Finding could represent postsurgical changes. Infectious or inflammatory colitis cannot be excluded. No abscess collection. No peritoneal free air. 3. Colonic diverticulosis without acute diverticulitis. 4. Bibasilar scarring/atelectasis with suggestion of early interstitial pulmonary fibrosis. No significant iscrepancies. Dictated by: Star Valdivia M.D. on 03/28/2019 at 8:29 Approved by: Star Valdivia M.D. on 03/28/2019 at 8:51
[2019-03-27 21:44] LABS: Add Manual Diff / Slide Review NO; Basophils Absolute Auto 0 /uL (0-100); Basophils Percent Auto 0.5 % (0-2); Eosinophils Absolute Auto 300 /uL (0-450); Eosinophils Percent Auto 4.3 % (2-4); Hematocrit 40.5 % (41-53); Hemoglobin 13.6 g/dL (13.5-17.5); Lymphocytes Absolute Auto 2200 /uL (1100-4500); Lymphocytes Percent Auto 28.7 % (25-40); Mean Corpuscular HGB Conc 33.6 % (30-36); Mean Corpuscular Hemoglobin 30.9 PG (26-34); Monocytes Absolute Auto 800 /uL (0-900); Monocytes Percent Auto 10.8 % (3-14); Neutrophils Absolute Auto 4300 /uL (1500-7000); Neutrophils Percent Auto 55.7 % (50-75); Platelet Count 264 X10^3/uL (150-400); Red Cell Distribution Width 15.4 % (11.6-14.8); White Blood Cell Count 7.8 X10^3/uL (4.5-11.0)
[2019-03-27 21:45] VITALS: BP 123/77; PULSE 85; RESP 17; O2SAT 94
[2019-03-27 21:46] LABS: INR 0.9 (0.9-1.3); Prothrombin Time 10.9 SECONDS (10.1-12.7)
[2019-03-27 21:49] LABS: PTT Partial Thromboplastin Tim 37 SECONDS (26.4-36.2)
[2019-03-27 21:50] LABS: Alanine Aminotransferase 24 IU/L (21-72); Albumin 4.1 g/dL (3.5-5.0); Albumin Globulin Ratio 1.2 (1.0-2.8); Alkaline Phosphatase 66 U/L (38-126); Aspartate Aminotransferase 38 IU/L (17-59); BUN Creatinine Ratio 17.5 (6-22); Bilirubin Total 0.5 mg/dL (0.2-1.3); Blood Urea Nitrogen 14 mg/dL (9-20); Calcium 9.2 mg/dL (8.4-10.2); Carbon Dioxide 26 mmol/L (22-32); Chloride 100 mmol/L (98-107); Estimated Glomerular Filt Rate > 60.0 mL/min (>60); Globulin 3.5 g/dL (1.7-4.1); Glucose 121 mg/dL (80-110); HEMOLYSIS 38 (0-50); Potassium 4.4 mmol/L (3.4-5.1); Sodium 135 mmol/L (137-145); Total Protein 7.6 g/dL (6.3-8.2)
[2019-03-27] MEDS: SODIUM CHLORIDE 0.9% 1,000 ML 150 ML IV (21:54)
[2019-03-27 22:00] VITALS: BP 111/69; PULSE 77; PULSE 80; RESP 17; RESP 18; O2SAT 94
[2019-03-27 22:30] VITALS: BP 121/71; PULSE 77; PULSE 82; RESP 16; RESP 21; O2SAT 95; O2SAT 96
[2019-03-27 23:00] VITALS: BP 111/66; PULSE 83; RESP 17; O2SAT 96
[2019-03-27 23:30] VITALS: BP 118/74; PULSE 81; RESP 17; O2SAT 96
--- NOTE | 2019-03-27 23:56 | PC.NURSE ---
Pt used call cage, needing to use restroom. Told pt that this RN recommends bedside commode, pt is insistent on walking to restroom. Denies any lightheadedness or dizziness.
[2019-03-28] VITALS (15 sets, daily range): BP systolic 83–116; BP diastolic 49–69; PULSE 70–81; RESP 14–21; TEMP 36.5–37; O2SAT 95–98
--- NOTE | 2019-03-28 00:12 | PC.NURSE ---
Pt in BR,became very pale,dizzy and diaphoretic. Pt pushed in wc to room. Dr Bailey aware,2nd IV started and packed cells ordered
[2019-03-28 00:15] LABS: Hematocrit 34.4 % (41-53); Hemoglobin 11.7 g/dL (13.5-17.5)
--- NOTE | 2019-03-28 01:08 | PC.NURSE ---
Dr Bailey aware of bp,pt is not feeling any more dizzy at this time
--- NOTE | 2019-03-28 02:42 | PC.NURSE ---
0152: rate increased to 150ml/hr 0224: rate increased to 300ml/hr
--- NOTE | 2019-03-28 03:50 | PC.NURSE ---
patient transferred to via airlift with blood transfusing. report called to MADINA Daily at . provider aware and no new orders at this time.
== END 2019-03-28 03:50 | disposition short-term general hospital (02) ==
PROVIDERS: Emergency Provider Emergency Medicine
DX: K92.2 Gastrointestinal hemorrhage, unspecified (principal)
CPT/HCPCS: 36430; 36591; 74177; 80053; 85014; 85018; 85025; 85610; 85730; 86850; 86900; 86901; 93005; 96360; 96361; 99285; P9016; Q9967

== ENCOUNTER → 2019-04-06 17:19 | Outpatient (CLI) | payer MEDICARE, SELFPAY ==
[2018-09-06 22:15] VITALS: BMI 23.4
[2019-04-06 17:59] LABS: Add Manual Diff / Slide Review NO; Basophils Absolute Auto 0 /uL (0-100); Basophils Percent Auto 0.7 % (0-2); Eosinophils Absolute Auto 400 /uL (0-450); Eosinophils Percent Auto 5.4 % (2-4); Hematocrit 31.1 % (41-53); Hemoglobin 10.4 g/dL (13.5-17.5); Lymphocytes Absolute Auto 1900 /uL (1100-4500); Lymphocytes Percent Auto 27.8 % (25-40); Mean Corpuscular HGB Conc 33.5 % (30-36); Mean Corpuscular Hemoglobin 30.7 PG (26-34); Mean Corpuscular Volume 91.5 fL (80-100); Monocytes Absolute Auto 900 /uL (0-900); Monocytes Percent Auto 12.7 % (3-14); Neutrophils Absolute Auto 3600 /uL (1500-7000); Neutrophils Percent Auto 53.4 % (50-75); Platelet Count 314 X10^3/uL (150-400); Red Cell Distribution Width 14.9 % (11.6-14.8); White Blood Cell Count 6.8 X10^3/uL (4.5-11.0)
== END ==
PROVIDERS: Visit Provider Family Medicine
DX: K92.2 Gastrointestinal hemorrhage, unspecified (principal)
CPT/HCPCS: 36415; 85025

== ENCOUNTER 2019-04-10 04:29 | Inpatient (IN) | payer MEDICARE, SELFPAY ==
[2018-09-06 22:15] VITALS: BMI 23.4
[2019-04-10] VITALS (13 sets, daily range): BP systolic 111–162; BP diastolic 59–92; PULSE 73–102; RESP 14–16; TEMP 36.5–37.6; O2SAT 93–99; BMI 22.6
--- NOTE | 2019-04-10 04:30 | ED.ABDPAIN ---
HPI - Abdominal Pain General Chief Complaint: Abdominal Pain Stated Complaint: stomach pain, gas since last night Time Seen by Provider: 04/10/19 04:30 Source: patient and family Mode of arrival: ambulatory Limitations: no limitations History of Present Illness HPI narrative: 78-year-old male nonsmoker presents with his in the chief complaint of worsening central abdominal pain over the course of the day. He has a history of bowel obstruction states this feels very similar. He has had a decreased appetite and is nauseated with small episodes of vomiting. He has not had a bowel movement over the course of the day. Patient had non-Hodgkin's lymphoma in 2010 and had some portions of the bowel affected by radiation in the treatment of that. He has had small bowel obstructions in the past which have required exploratory laparotomies as well as intussusception cysts and even suggestion of an anastomotic leak. He denies any fever or chills. His pain is worse with motion and improves with rest MD complaint: abdominal pain Onset (ago): hour(s) Pain Consistency: constant Location: diffuse Severity: severe Quality: cramping and aching Radiation: none Migration to: no migration Associated symptoms: nausea and vomiting Related Data Home Medications Medication Instructions Recorded Confirmed Fish Oil 500 mg PO DAILY #0 06/24/11 09/29/18 multivitamin [Multiple Vitamins] 1 tab PO DAILY #0 01/05/17 09/29/18 Vitamin D3 1 cap PO DAILY 09/06/18 09/29/18 latanoprost 1 drp OPHTHALMIC (EYE) BEDTIME 09/06/18 09/29/18 omeprazole magnesium [Prilosec OTC] 10 mg PO DAILY 09/06/18 09/29/18 Previous Rx's Medication Instructions Recorded oxycodone-acetaminophen 5 mg-325 See Rx Instructions PO Q4-6H PRN 09/16/18 mg tablet #[address]-ER 9 mg 9 mg PO DAILY #30 each 09/25/18 tablet,delayed and extended release tramadol 50 mg PO Q6H PRN #10 tab 10/06/18 Allergies Allergy/AdvReac Type Severity Reaction Status Date / Time No Known Drug Allergies Allergy Verified 03/27/19 21:11 Review of Systems Constitutional Denies chills, Denies fever(s), Denies lethargy and Denies weakness Eyes Denies change in vision, Denies eye discharge, Denies irritation and Denies loss of vision ENT Ears, Nose, Mouth, and Throat: Denies change in voice, Denies neck pain and Denies sore throat Cardiovascular Denies chest pain, Denies irregular heart rhythm, Denies lightheadedness, Denies palpitations, Denies dyspnea, Denies dyspnea on exertion and Denies orthopnea Respiratory Denies cough, Denies dyspnea, Denies dyspnea on exertion and Denies wheezing Gastrointestinal Gastrointestinal: Reports abdominal pain, Denies change in bowel habits, Denies diarrhea, Reports nausea and Reports vomiting Genitourinary Denies hematuria, Denies flank pain, Denies urinary incontinence and Denies urinary urgency Musculoskeletal Denies neck pain Integumentary/Breasts Denies pruritus, Denies erythema, Denies rash and Denies wounds Neurologic Denies confusion, Denies loss of vision and Denies weakness Psychiatric Denies anxiety, Denies confusion, Denies depression, Denies homicidal ideation and Denies suicidal ideation Endocrine Denies palpitations Hematologic/Lymphatic Denies easy bruising Allergic/Immunologic Denies wheezing [facility] Medical History BPH (benign prostatic hyperplasia) (Acute) Non Hodgkin's lymphoma (Acute) Small bowel obstruction (Acute) Surgical History History of bowel resection (Acute) Port catheter in place Port catheter in place Status post hernia repair Social History household members: spouse Smoking Status: Never smoker alcohol intake: current Social History household members: spouse Smoking Status: Never smoker alcohol intake: current Exam Narrative Exam Narrative: GENERAL: [78] year old patient appears stated age. Well-nourished, well-developed patient, in mild distress. HEAD: Atraumatic. Normocephalic. EYES: Pupils equal round and reactive. Extraocular motions intact. No scleral icterus. No injection or drainage. ENT: Nose without bleeding, purulent drainage. Throat without erythema, tonsillar hypertrophy or exudate. Airway patent. NECK: Trachea midline. Non tender CARDIOVASCULAR: Regular rate and rhythm without murmurs, gallops, or rubs. RESPIRATORY: Clear to auscultation. Breath sounds equal bilaterally. No wheezes, rales, or rhonchi. GASTROINTESTINAL: Abdomen soft, significantly tender, nondistended. Decreased bowel sounds EXTREMITIES: No edema or joint tenderness. BACK: Nontender without deformity or crepitance. No flank tenderness. NEURO: AOx3. SKIN: No rash or erythema of visible areas Initial Vital Signs Initial Vital Signs: Vital Signs Temperature 97.7 F 04/10/19 04:45 Pulse Rate 75 04/10/19 04:45 Respiratory Rate 16 04/10/19 04:45 Blood Pressure 151/92 H 04/10/19 04:45 Pulse Oximetry 99 04/10/19 04:45 Course Course Narrative: NG-tube placed, minimal output Orders Ordered: ED Orders 04/10/19 04:42 Complete Blood Count AUTO DIFF Stat Comprehensive Metabolic Panel Stat Lipase Stat 04/10/19 05:03 XR acute abdomen series Stat 04/10/19 05:32 Type and Screen Stat 04/10/19 05:49 CT abdomen pelvis w con Stat Sodium Chloride (Normal Saline 0.9%) 1,000 mls @ 150 mls/hr IV CONT DANIEL Last Admin: 04/10/19 05:07 Dose: 150 mls/hr Discontinued Medications Hydromorphone HCl (Dilaudid) 0.5 mg IV NOW ONE Stop: 04/10/19 05:04 Last Admin: 04/10/19 05:07 Dose: 0.5 mg Hydromorphone HCl (Dilaudid) 0.5 mg IV NOW ONE Stop: 04/10/19 06:58 Last Admin: 04/10/19 07:01 Dose: 0.5 mg Consultations Consultation #1: Called to Dr. Montilla off, recommends putting patient in the hospital, on Dr. Gonzáles's service Vital Signs - 8 hr 04/10/19 04:45 04/10/19 06:15 04/10/19 07:07 Temperature 97.7 F Pulse Rate 75 74 73 Respiratory Rate 16 16 16 Blood Pressure 151/92 H Blood Pressure [Left Arm] 162/89 H 152/77 H Pulse Oximetry 99 97 93 MDM - Abdominal Pain Lab Data Result diagrams: 04/10/19 04:42 04/10/19 04:42 Lab Results 08/13/19 08/13/19 08/13/19 Range/Units 04:42 04:42 05:32 WBC 8.3 (4.5-11.0) X10^3/uL RBC 3.68 L (4.5-5.9) X10^6/uL Hgb 11.2 L (13.5-17.5) g/dL Hct 33.5 L (41-53) % MCV 91.1 (80-100) fL MCH 30.3 (26-34) PG MCHC 33.3 (30-36) % RDW 15.2 H (11.6-14.8) % Plt Count 338 (150-400) X10^3/uL Neut % (Auto) 71.6 (50-75) % Lymph % (Auto) 15.9 L (25-40) % [place] % (Auto) 7.7 (3-14) % Eos % (Auto) 4.1 H (2-4) % Baso % (Auto) 0.7 (0-2) % Neut # (Auto) 5900 (4550-3698) /uL Lymph # (Auto) 1300 (0961-7031) /uL [place] # (Auto) 600 (0-900) /uL Eos # (Auto) 300 (0-450) /uL Baso # (Auto) 100 (0-100) /uL Sodium 138 (137-145) mmol/L Potassium 4.6 (3.4-5.1) mmol/L Chloride 97 L (98-107) mmol/L Carbon Dioxide 30 (22-32) mmol/L BUN 13 (9-20) mg/dL Creatinine 0.90 (0.66-1.25) mg/dL Estimated GFR > 60.0 (>60) mL/min BUN/Creatinine Ratio 14.4 (6-22) Glucose 119 H (80-110) mg/dL Calcium 9.4 (8.4-10.2) mg/dL Total Bilirubin 0.5 (0.2-1.3) mg/dL AST 31 (17-59) IU/L ALT 19 L (21-72) IU/L Alkaline Phosphatase 69 (38-126) U/L Total Protein 7.7 (6.3-8.2) g/dL Albumin 4.3 (3.5-5.0) g/dL Globulin 3.4 (1.7-4.1) g/dL Albumin/Globulin Ratio 1.3 (1.0-2.8) Lipase 38 (23-300) U/L Blood Type A Positive Antibody Screen Negative Imaging Data CT scan - abdomen: Radiologist's impression: Findings compatible with a small-bowel obstruction with transition point in the left mid abdomen Discharge Plan Departure Patient Disposition: Admitted As Inpatient Clinical Impression: Small bowel obstruction Admit Date/Time: 04/10/19 06:49 Admit Provider: Kris Cabello
--- NOTE | 2019-04-10 05:03 | DI.RAD.S_ITS ---
PROCEDURE: XR ACUTE ABDOMEN SERIES INDICATIONS: Abdominal pain TECHNIQUE: One view chest and two views of the abdomen were acquired. COMPARISON: [facility], CT, CT ABDOMEN PELVIS W CON, 03/27/2019, 21:59. [facility], CR, ABDOMEN ACUTE SERIES, 10/18/2015, 6:05. FINDINGS: Surgical changes and devices: None. Chest: Lungs are clear. Heart size is normal. No pleural effusions. No pneumoperitoneum. Abdomen: There are scattered air-fluid levels and mildly prominent appearance of right-sided small bowel loops measuring up to 3.4 cm. No definite transition point. Large amount of stool and mild gas is present within the rectal vault. Bones: No suspicious bony lesions. IMPRESSION: Mildly prominent right-sided small bowel loops although no definite transition point. Nonspecific air-fluid levels. No specific evidence of bowel obstruction seen at this time although if the patient's symptoms do not improve, continued surveillance with abdominal series radiographs could be performed. Please see comparison abdominal/pelvis CT for further characterization. . Dictated by: Cristhian Hinton M.D. on 04/10/2019 at 8:45 Approved by: Cristhian Hinton M.D. on 04/10/2019 at 8:47
[2019-04-10] MEDS: HYDROMORPHONE 1 MG INJ 0.5 MG IV (05:07)
[2019-04-10] MEDS: SODIUM CHLORIDE 0.9% 1,000 ML 150 ML IV (05:07)
[2019-04-10 05:17] LABS: Add Manual Diff / Slide Review NO; Basophils Absolute Auto 100 /uL (0-100); Basophils Percent Auto 0.7 % (0-2); Eosinophils Absolute Auto 300 /uL (0-450); Eosinophils Percent Auto 4.1 % (2-4); Hematocrit 33.5 % (41-53); Hemoglobin 11.2 g/dL (13.5-17.5); Lymphocytes Absolute Auto 1300 /uL (1100-4500); Lymphocytes Percent Auto 15.9 % (25-40); Mean Corpuscular HGB Conc 33.3 % (30-36); Mean Corpuscular Hemoglobin 30.3 PG (26-34); Mean Corpuscular Volume 91.1 fL (80-100); Monocytes Absolute Auto 600 /uL (0-900); Monocytes Percent Auto 7.7 % (3-14); Neutrophils Absolute Auto 5900 /uL (1500-7000); Neutrophils Percent Auto 71.6 % (50-75); Platelet Count 338 X10^3/uL (150-400); Red Blood Cell Count 3.68 X10^6/uL (4.5-5.9); Red Cell Distribution Width 15.2 % (11.6-14.8); White Blood Cell Count 8.3 X10^3/uL (4.5-11.0)
[2019-04-10 05:21] LABS: Alanine Aminotransferase 19 IU/L (21-72); Albumin 4.3 g/dL (3.5-5.0); Albumin Globulin Ratio 1.3 (1.0-2.8); Alkaline Phosphatase 69 U/L (38-126); Aspartate Aminotransferase 31 IU/L (17-59); BUN Creatinine Ratio 14.4 (6-22); Bilirubin Total 0.5 mg/dL (0.2-1.3); Blood Urea Nitrogen 13 mg/dL (9-20); Calcium 9.4 mg/dL (8.4-10.2); Carbon Dioxide 30 mmol/L (22-32); Chloride 97 mmol/L (98-107); Estimated Glomerular Filt Rate > 60.0 mL/min (>60); Globulin 3.4 g/dL (1.7-4.1); Glucose 119 mg/dL (80-110); HEMOLYSIS < 15 (0-50); Lipase 38 U/L (23-300); Potassium 4.6 mmol/L (3.4-5.1); Sodium 138 mmol/L (137-145); Total Protein 7.7 g/dL (6.3-8.2)
--- NOTE | 2019-04-10 05:49 | DI.CT.S_ITS ---
PROCEDURE: CT ABDOMEN PELVIS W CON INDICATIONS: obstruction, history of small bowel obstruction, intussuseption TECHNIQUE: After the administration of intravenous contrast, 5 mm thick sections acquired from the diaphragm to the symphysis. 5 mm coronal and sagittal reformats were acquired. For radiation dose reduction, the following was used: automated exposure control, adjustment of mA and/or kV according to patient size. COMPARISON: [facility], CT, CT ABDOMEN PELVIS W CON, 03/27/2019, 21:59. [facility], CT, CT ABDOMEN PELVIS W CON, 09/06/2018, 15:13. FINDINGS: Image quality: Excellent. ABDOMEN: Lung bases: Lung bases are clear except for a small degree of lung parenchymal scarring and what appears to be centrilobular emphysema previously present. Heart size is normal. Solid organs: Liver is normal in size and enhancement. Gallbladder appears normal. Biliary system is non dilated. Pancreas enhances normally. Spleen is normal in size and enhancement. No adrenal nodules. Kidneys demonstrate normal size and enhancement, without hydronephrosis. Note is made of a 2 mm calculus which is nonobstructive within the posterior calyx of the left mid kidney. An exophytic 4.8 cm right renal cortical cyst is incidentally noted with a small amount of peripheral capsular calcifications laterally. Peritoneum and bowel: Colonic bowel loops demonstrate normal wall thickness and caliber. Small bowel loops from the abdomen extending into the left lower quadrant are abnormally dilated and contain what appears to be feculent transformation of internal content at several points within the dilated small bowel is seen proximal to the point of transition between dilatation and relative collapse at the left lower abdomen/pelvis junction seen on axial series 2 image 53. Clustered surgical clips are seen at the midline within the upper pelvis, and what appears to be an enteric staple line likely representing a ileocolonic anastomosis is seen at the right lower quadrant, series 2 image 67. No free fluid or air. Nodes and vessels: No retroperitoneal or mesenteric adenopathy by size criteria. Aorta and inferior vena cava are normal in size. Miscellaneous: No ventral hernias. PELVIS: Genitourinary: Bladder wall thickness is normal. Miscellaneous: No inguinal hernias or adenopathy. Colonic diverticulosis without acute diverticulitis. Bones: No suspicious bony lesions. No vertebral body compression fractures. IMPRESSION: Small bowel obstruction pattern with small bowel dilatation to a point in the left lower quadrant near the abdomen/pelvis junction as noted above. There appears to have been prior abdominal/pelvic surgery including clustered surgical clips within the root of small bowel mesentery within the upper pelvis at the midline and also a right lower quadrant apparent enterocolonic anastomosis is identified with a bowel surgical staple line. Nonobstructive 2 mm left mid renal calculus, no urinary tract obstruction found. Dictated by: Mihai Liu M.D. on 04/10/2019 at 9:45 Approved by: Mihai Liu M.D. on 04/10/2019 at 9:50
--- NOTE | 2019-04-10 06:49 | PC.NURSE ---
Gastric tube placed, pt tolerated well. Placed to LIS, 100mL of clear, pink tinged fluid with small particles of dinner returned. Placement verified with auscultation and by return of gastric contents.
[2019-04-10] MEDS: HYDROMORPHONE 0.5 MG INJ IV ×3 (07:01→12:33)
--- NOTE | 2019-04-10 08:10 | DI.RAD.S_ITS ---
PROCEDURE: XR CHEST 1V INDICATIONS: ngt placement TECHNIQUE: One view of the chest was acquired. COMPARISON: [facility], CHEST 1 VIEW, 11/05/2010, 13:48. [facility], CHEST 1 VIEW, 10/15/2015, 3:39. [facility], CHEST 1 VIEW, 10/15/2015, 4:08. FINDINGS: Surgical changes and devices: The tip of the gastric tube is seen overlying the mid stomach. Lungs and pleura: No focal infiltrates are seen. Interstitial prominence is seen. No pleural effusions or pneumothorax. Mediastinum: Mediastinal contours appear normal. Heart size is normal. Bones and chest wall: Age-appropriate bony degenerative changes are seen. No suspicious bony lesions. Overlying soft tissues appear unremarkable. IMPRESSION: The tip of the gastric tube is seen overlying the mid stomach. Interstitial prominence is seen throughout. The interstitial prominence is nonspecific, yet may be related to pulmonary edema. Differential diagnosis includes baseline parenchymal coarsening. Dictated by: Beltran Felix M.D. on 04/10/2019 at 8:08 Approved by: Beltran Felix M.D. on 04/10/2019 at 8:10
--- NOTE | 2019-04-10 08:39 | PC.NURSE ---
obtained patient care. Patient reports significant abd discomfort. NG tube with minimal output present in tube. Repeat Xray to confirm NG placement ordered by provider. Additional dose of dilaudid ordered. Patient vomited approx 250ml of partially digested food.
--- NOTE | 2019-04-10 08:42 | PC.NURSE ---
General Surgeon at bedside. Patient ready for transport to floor
--- NOTE | 2019-04-10 09:17 | PM.HP.1 ---
History of Present Illness Date Patient Seen: 04/10/19 Time Patient Seen: 09:18 Chief complaint: stomach pain, gas since last night Narrative: CC : Small-bowel obstruction HPI: 78-year-old man with a somewhat complex abdominal surgical history now presents with approximately 16 hours of abdominal pain, bloating, nausea, and vomiting. Briefly in 2010 patient underwent abdominal/chest wall radiation for residual soft tissue lymphoma mass -this mass was surgically biopsied. The remainder of his lymphoma had been successfully treated with chemotherapy. 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 In 2015 he underwent exploratory laparotomy and small-bowel resection for a bezoar within the proximal jejunum. In August of this year he developed a ileo colonic intussusception and was taken to the operating room for partial right colectomy and resection of his terminal ileum. Grossly and pathologically there was significant scarring within this area of bowel -pathology raised the possibility Crohn's disease, however subsequently surgery felt his gross and pathologic data was most consistent with radiation scarring. Patient was in good health had recently eaten coates fruit with pits -feels quite confident did not swallow any pit, as well as stir gomez broccoli -endorses he chewed this quiet well. Yesterday afternoon developed abdominal bloating, periumbilical abdominal pain, nausea and vomiting. This morning he presented to the emergency department where vital signs were normal with the exception of hypertension, WBC 8.3, creatinine 0.9 -CT scan demonstrated an area of jejunum with transition point and fecalization of stool contents at the site of what appears to be the area of his resection in 2015. There was no adjacent mesenteric edema or free fluid. No suggestion of volvulus. 12 F NG tube was placed the emergency department with minimal evacuation of gastric content, patient did vomit once around nasogastric tube X-ray showed NGT within gastric body Patient History Medical History BPH (benign prostatic hyperplasia) (Acute) Non Hodgkin's lymphoma (Acute) Small bowel obstruction (Acute) Surgical History History of bowel resection (Acute) Port catheter in place Port catheter in place Status post hernia repair Social History household members: spouse Smoking Status: Never smoker alcohol intake: current Family & Social History Social History: household members spouse Safety & Behavioral: Feels Safe in Current Yes Environment Been Physically Hurt or No Threatened By a Person Tobacco & Substance use: Smoking Status Never smoker alcohol intake current alcohol intake frequency 3 or more drinks per day Substance Use Type does not use Meds Home Medications Medication Instructions Recorded Confirmed Type Fish Oil 500 mg PO DAILY #0 06/24/11 09/29/18 History multivitamin [Multiple Vitamins] 1 tab PO DAILY #0 01/05/17 09/29/18 History Vitamin D3 1 cap PO DAILY 09/06/18 09/29/18 History latanoprost 1 drp OPHTHALMIC (EYE) BEDTIME 09/06/18 04/10/19 History omeprazole magnesium [Prilosec OTC] 10 mg PO DAILY 09/06/18 09/29/18 History oxycodone-acetaminophen 5 mg-325 See Rx Instructions PO Q4-6H PRN 09/16/18 09/29/18 Rx mg tablet #[address]-ER 9 mg 9 mg PO DAILY #30 each 09/25/18 09/29/18 Rx tablet,delayed and extended release tramadol 50 mg PO Q6H PRN #10 tab 10/06/18 Rx cholestyramine (with sugar) 4 g PO DAILY 04/10/19 04/10/19 History timolol maleate 1 drp EYE-RIGHT BID 04/10/19 04/10/19 History Allergies Allergy/AdvReac Type Severity Reaction Status Date / Time No Known Drug Allergies Allergy Verified 03/27/19 21:11 Review of Systems Constitutional Constitutional: Denies fever(s) Eyes Eyes: Denies bulging eyes ENT Ears, Nose, Mouth, and Throat: No lip swelling Cardiovascular Cardiovascular: Denies generalize swelling Respiratory Respiratory: Denies stridor Gastrointestinal Gastrointestinal: Denies coffee ground emesis Musculoskeletal Musculoskeletal: Denies loss of height Integumentary/Breasts Skin/Breast: Denies wounds Neurologic Neurologic: Denies abnormal speech and Denies confusion Psychiatric Psychiatric: Denies confusion Endocrine Endocrine: Denies deepening of the voice Allergic/Immunologic Allergic/Immunologic: Denies lip swelling Exam Vital Signs (past 8 hours): - 04/10/19 04:45 04/10/19 06:15 04/10/19 07:07 Temperature 97.7 F Pulse Rate 75 74 73 Respiratory Rate 16 16 16 Blood Pressure 151/92 H Blood Pressure [Left Arm] 162/89 H 152/77 H Pulse Oximetry 99 97 93 04/10/19 08:43 Temperature Pulse Rate 78 Respiratory Rate 16 Blood Pressure 133/67 Blood Pressure [Left Arm] Pulse Oximetry 96 Oxygen Delivery Method Room Air Const General: cooperative Orientation: alert HENNV Head: normal to inspection Nose: nares normal Mouth: oral mucosae normal and lip normal Eyes Eyelids: eyelids normal Conjunctivae: conjunctivae normal Sclera: sclerae normal Neck Neck: supple and other (No thyromegally) Chest Chest: other (LCTAB , regular respiratory effort) Cardio Rhythm: regular rhythm Heart Sounds: S1 normal, S2 normal, no gallops, no murmurs and no rubs GI Other: Well-healed midline incisional scar, distended though not market. Absent bowel sounds, tender to percussion across midportion of abd, tympanitic. Upon palpation there is generalized soft distension, no masses, moderately tender in periumbilical region. No reflux of guarding, negative bed shake test, no rebound -does not have peritoneal signs Skin General: no rashes or lesions noted Neuro General: alert and awake Psych Appearance: grossly normal Affect: normal affect Objective Labs Result Diagrams: 04/10/19 04:42 04/10/19 04:42 Labs: Laboratory Results - last 24 hr 04/10/19 04/10/19 04/10/19 04:42 04:42 05:32 WBC 8.3 RBC 3.68 L Hgb 11.2 L Hct 33.5 L MCV 91.1 MCH 30.3 MCHC 33.3 RDW 15.2 H Plt Count 338 Neut % (Auto) 71.6 Lymph % (Auto) 15.9 L [place] % (Auto) 7.7 Eos % (Auto) 4.1 H Baso % (Auto) 0.7 Neut # (Auto) 5900 Lymph # (Auto) 1300 [place] # (Auto) 600 Eos # (Auto) 300 Baso # (Auto) 100 Sodium 138 Potassium 4.6 Chloride 97 L Carbon Dioxide 30 BUN 13 Creatinine 0.90 Estimated GFR > 60.0 BUN/Creatinine Ratio 14.4 Glucose 119 H Calcium 9.4 Total Bilirubin 0.5 AST 31 ALT 19 L Alkaline Phosphatase 69 Total Protein 7.7 Albumin 4.3 Globulin 3.4 Albumin/Globulin Ratio 1.3 Lipase 38 Blood Type A Positive Antibody Screen Negative Assessment & Plan Assessment & Plan narrative: 78-year-old man presents with signs and symptoms of small-bowel obstruction. Overall is clinically well without concerning vital signs change, leukocytosis, or peritoneal signs. On CT scan appears to have a visualized what appears to be a transition point adjacent to surgical clips from his jejunal resection. 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 There is a possibility of anastomotic stricture as well as blocking intraluminal contents such as broccoli or coates pit at the site of a subacute stricture - this appears less likely. His ileocolic anastomosis from his most recent abdominal surgery is open. Plan: NG tube placement to intermittent low wall suction -okay to give meds with 1 hour clamp, needs good I and Os Gastrografin challenge with serial x-rays MultiModal pain control with acetaminophen, gabapentin, methocarbamol, hydromorphone Home PPI, eyedrops for glaucoma FEN - LR 84, E ok, NPO but meds with sips Proph - heparin SQ
--- NOTE | 2019-04-10 09:43 | DI.RAD.S_ITS ---
PROCEDURE: FL SMALL BOWEL FOLLOW THROUGH INDICATIONS: Small bowel obstruction COMPARISON: [facility], CT, CT ABDOMEN PELVIS W CON, 04/10/2019, 5:56. [facility], RF, SMALL BOWEL FOLLOW THROUGH, 10/15/2015, 8:10. FINDINGS: KUB: Preprocedural gas prover film demonstrates a prominently dilated small bowel gas pattern. No colonic dilatation seen. No suspicious abdominal calcifications. Visualized solid organ contours appear normal. No suspicious bony abnormalities. Small bowel: There is markedly abnormal transit time of barium within the small bowel and at the termination of the study and 20 hours after initiation no definitive transit of oral contrast into the colon is identified. Small bowel loops are of abnormal dilated caliber throughout. Mucosal folds are smooth and of normal thickness, but quality of visualization diminishes as dilution of the small bowel oral contrast transits. No discretely identified strictures, intraluminal masses, or extrinsic mass effects are noted. IMPRESSION: Prominent small bowel fluid distention, high-grade small bowel obstruction, 20 hours of transit time without identified extension of oral contrast into the colon. Dictated by: Mihai Liu M.D. on 04/11/2019 at 8:54 Approved by: Mihai Liu M.D. on 04/11/2019 at 8:58
--- NOTE | 2019-04-10 09:54 | PC.NURSE ---
Day shift: On unit approx 0910 from ED. Oriented to room and call light. NG suction attached per DR Soto (low int). Pt disconnected at this time for procedure off unit.
--- NOTE | 2019-04-10 10:01 | PC.NURSE ---
Daay shift: Pt off unit at approx 1000 for procedure/test.
--- NOTE | 2019-04-10 10:32 | PC.NURSE ---
Day shift: Pt back on AC unit at approx 1030. Pt to get IV fluids but NG to stay off at this point as the imaging procedure is not complete and Pt will return to imaging in approx 2 hours. Pt also stated that he has an enlarged prostate and it takes time to void. Pt also had 300ml of emesis on the way back to AC unit. That emesis has been charted. Call light in reach.
[2019-04-10] MEDS: LACTATED RINGERS 1,000 ML 84 ML IV (11:10)
--- NOTE | 2019-04-10 12:13 | PC.NURSE ---
Day shift: Pt off unit for imaging/testing at approx 1210. Foly placed by charge operator Adrian. Pt tolerated well.
--- NOTE | 2019-04-10 12:26 | PC.NURSE ---
Day shift: Pt back on AC unit. Per Christian from imaging Pt is not to be hooked up to NG tube suction. IV fluid infusing. Call light in reach. Bed alarm is on.
[2019-04-10] MEDS: METOCLOPRAMIDE 10 MG/2 ML INJ 5 MG IV (12:40)
--- NOTE | 2019-04-10 12:44 | PC.NURSE ---
DAY SHIFT: Gave Pt IV Dilaudid per OCT and this made Pt have 175ml emesis. IV Dilaudid for this Pt should be pushed slowly. Call light in reach. Also gave Pt IV Reglan per OCT.
--- NOTE | 2019-04-10 14:05 | PC.NURSE ---
Day shift: Pt reported recent GI bleed that required hospitalization. Heparin was held per Pt's request. Will inform .
--- NOTE | 2019-04-10 14:23 | PC.NURSE ---
Day sift: Pt was off unit for more swallow study at approx 1410 and back on unit at approx 1425. Resumed IV fluids but is not hooked up to NG tube suction per Christian from imaging. Christian reports Pt will go back down for another swallow session at approx 1800 this marti. Call light in reach. Sanjuanita posey is patent.
--- NOTE | 2019-04-10 14:58 | PC.NURSE ---
Day shift: Dr Espino informed about Pt's recent GI bleed in regards to Heparin injection and the MD said it would be ok to give the injection.
[2019-04-10] MEDS: ONDANSETRON 4 MG/2 ML INJ IV (16:59)
[2019-04-10] MEDS: LATANOPROST 0.005% OPHTH 2.5 ML 1 DROPS EYE-BOTH (23:04)
--- NOTE | 2019-04-10 23:18 | PC.NURSE ---
Addendum entered by Rosalind Gordon R.N. 04/10/19 23:19: passed information onto noc shift nurse Original Note: Patient with heparin sq order. Patient refused d/t hx of bleeding risk. Patient wants doctor to speak with him in the morning 04/11 about if its okay for patient to take.
[2019-04-11] VITALS (8 sets, daily range): BP systolic 100–129; BP diastolic 63–74; PULSE 67–83; RESP 15–18; TEMP 36.5–37.4; O2SAT 92–97
[2019-04-11] MEDS: LACTATED RINGERS 500 ML IV
[2019-04-11] MEDS: LACTATED RINGERS 1,000 ML 84 ML IV ×2 (04:12→14:36)
[2019-04-11 05:29] LABS: Add Manual Diff / Slide Review NO; Basophils Absolute Auto 100 /uL (0-100); Basophils Percent Auto 0.6 % (0-2); Eosinophils Absolute Auto 100 /uL (0-450); Eosinophils Percent Auto 1.2 % (2-4); Hematocrit 34.6 % (41-53); Hemoglobin 11.7 g/dL (13.5-17.5); Lymphocytes Absolute Auto 1200 /uL (1100-4500); Lymphocytes Percent Auto 13.2 % (25-40); Mean Corpuscular HGB Conc 33.8 % (30-36); Mean Corpuscular Hemoglobin 30.2 PG (26-34); Mean Corpuscular Volume 89.5 fL (80-100); Monocytes Absolute Auto 900 /uL (0-900); Monocytes Percent Auto 9.9 % (3-14); Neutrophils Absolute Auto 6700 /uL (1500-7000); Neutrophils Percent Auto 75.1 % (50-75); Platelet Count 354 X10^3/uL (150-400); Red Blood Cell Count 3.87 X10^6/uL (4.5-5.9); Red Cell Distribution Width 15.1 % (11.6-14.8); White Blood Cell Count 8.9 X10^3/uL (4.5-11.0)
[2019-04-11 05:35] LABS: BUN Creatinine Ratio 18.9 (6-22); Blood Urea Nitrogen 17 mg/dL (9-20); Calcium 9.6 mg/dL (8.4-10.2); Carbon Dioxide 32 mmol/L (22-32); Chloride 95 mmol/L (98-107); Estimated Glomerular Filt Rate > 60.0 mL/min (>60); Glucose 130 mg/dL (80-110); HEMOLYSIS < 15 (0-50); Magnesium 2.1 mg/dL (1.6-2.3); Potassium 4.2 mmol/L (3.4-5.1); Sodium 138 mmol/L (137-145)
[2019-04-11] MEDS: HEPARIN 5,000 UNIT/ML VIAL 5000 UNIT SUBCUT ×2 (06:32→14:35)
[2019-04-11] MEDS: PANTOPRAZOLE 40 MG VIAL 20 MG IV (08:02)
[2019-04-11] MEDS: TIMOLOL 0.5% OPHTH 1 DROPS EYE-RIGHT ×3 (08:03→20:43)
--- NOTE | 2019-04-11 11:28 | PM.PN.1 ---
Subjective Date Patient Seen: 04/11/19 Time Patient Seen: 11:28 Interval history: No flatus. NGT high output. Gastrografin challenge no colonic transit after 20 hrs. No fever, chills. Exam Vital Signs (past 8 hours): - 04/11/19 06:10 04/11/19 08:00 04/11/19 08:08 Temperature 97.7 F 98.3 F Pulse Rate 83 80 Respiratory Rate 16 18 Blood Pressure 126/73 129/68 Pulse Oximetry 94 97 95 Oxygen Delivery Method Room Air Oxygen Flow Rate 0 Narrative Exam Narrative: Gen: Adult male no acute distress, small bowel contents within NGT Chest: Non laborded resp Abdomen: distended no peritonitis Objective Labs Result Diagrams: 04/11/19 05:06 04/11/19 05:06 Labs: Laboratory Results - last 24 hr 04/11/19 04/11/19 05:06 05:06 WBC 8.9 RBC 3.87 L Hgb 11.7 L Hct 34.6 L MCV 89.5 MCH 30.2 MCHC 33.8 RDW 15.1 H Plt Count 354 Neut % (Auto) 75.1 H Lymph % (Auto) 13.2 L [place] % (Auto) 9.9 Eos % (Auto) 1.2 L Baso % (Auto) 0.6 Neut # (Auto) 6700 Lymph # (Auto) 1200 [place] # (Auto) 900 Eos # (Auto) 100 Baso # (Auto) 100 Sodium 138 Potassium 4.2 Chloride 95 L Carbon Dioxide 32 BUN 17 Creatinine 0.90 Estimated GFR > 60.0 BUN/Creatinine Ratio 18.9 Glucose 130 H Calcium 9.6 Magnesium 2.1 Assessment & Plan Assessment & Plan narrative: 78-year-old male with a small-bowel obstruction. Since I discussed with the patient that his Gastrografin challenge shows that there has been no transit of contrast in the colon after 20 hours. Consistent with this he has nearly 2 L of small bowel content from the nasogastric tube over the past 24 hours period the it is very unlikely that his obstruction will resolve without operative therapy. I discussed this with patient and he is hesitant to proceed with operative therapy at this point. The he had a recent colonoscopy at the [facility] several weeks ago which he requests I review prior to any operative therapy. I have request the records and am happy to review them but doubt that it will change our management. Will continue NGT and IVF, no peritonitis or leukocytosis to suggest he needs urgent surgical intervention.
--- NOTE | 2019-04-11 11:32 | P.PN_ITS ---
Subjective Date Patient Seen: 04/11/19 Time Patient Seen: 11:28 Interval history: No flatus. NGT high output. Gastrografin challenge no colonic transit after 20 hrs. No fever, chills. Exam Vital Signs (past 8 hours): - 04/11/19 06:10 04/11/19 08:00 04/11/19 08:08 Temperature 97.7 F 98.3 F Pulse Rate 83 80 Respiratory Rate 16 18 Blood Pressure 126/73 129/68 Pulse Oximetry 94 97 95 Oxygen Delivery Method Room Air Oxygen Flow Rate 0 Narrative Exam Narrative: Gen: Adult male no acute distress, small bowel contents within NGT Chest: Non laborded resp Abdomen: distended no peritonitis Objective Labs Result Diagrams: 04/11/19 05:06 04/11/19 05:06 Labs: Laboratory Results - last 24 hr 04/11/19 04/11/19 05:06 05:06 WBC 8.9 RBC 3.87 L Hgb 11.7 L Hct 34.6 L MCV 89.5 MCH 30.2 MCHC 33.8 RDW 15.1 H Plt Count 354 Neut % (Auto) 75.1 H Lymph % (Auto) 13.2 L [place] % (Auto) 9.9 Eos % (Auto) 1.2 L Baso % (Auto) 0.6 Neut # (Auto) 6700 Lymph # (Auto) 1200 [place] # (Auto) 900 Eos # (Auto) 100 Baso # (Auto) 100 Sodium 138 Potassium 4.2 Chloride 95 L Carbon Dioxide 32 BUN 17 Creatinine 0.90 Estimated GFR > 60.0 BUN/Creatinine Ratio 18.9 Glucose 130 H Calcium 9.6 Magnesium 2.1 Assessment & Plan Assessment & Plan narrative: 78-year-old male with a small-bowel obstruction. Since I discussed with the patient that his Gastrografin challenge shows that there has been no transit of contrast in the colon after 20 hours. Consistent with this he has nearly 2 L of small bowel content from the nasogastric tube ov er the past 24 hours period the it is very unlikely that his obstruction will resolve without operative therapy. I discussed this with patient and he is hesitant to proceed with operative therapy at this point. The he had a recent colonoscopy at the [facility] several weeks ago which he requests I review prior to any operative therapy. I have request the records and am happy to review them but doubt that it will change our management. Will continue NGT and IVF, no peritonitis or leukocytosis to suggest he needs urgent surgical intervention.
--- NOTE | 2019-04-11 14:48 | PC.NURSE ---
1400 Pt up to BRP, had soft formed dark greenish BM, mod amt. Guiac neg. Pt is ambulatory, steady gait noted.
--- NOTE | 2019-04-11 15:38 | DI.RAD.S_ITS ---
PROCEDURE: XR ABDOMEN 1V INDICATIONS: evaluate motility of contrast TECHNIQUE: One view of the abdomen acquired. COMPARISON: [facility], RF, [place] SMALL BOWEL FOLLOW THROUGH, 04/10/2019, 9:57. [facility], CR, XR ABDOMEN 1V, 09/10/2018, 13:06. [facility], CR, XR ABDOMEN MIN 2V, 09/09/2018, 8:18. FINDINGS: Surgical changes and devices: None. Bowel: Bowel gas pattern is normal. Soft tissues: No suspicious abdominal calcifications. Visualized solid organ contours appear normal in size. Bones: No suspicious bony lesions. IMPRESSION: Contrast has transited into the colon, at the time of the single image available for review dated 04/11/19 at 15:45 in the afternoon. This is in reference to a prior small bowel follow-through study that was initiated yesterday and followed for approximately 20 hours. Oral contrast from that study had not yet reached the colon at 20 hours. It has now. Dictated by: Mihai Liu M.D. on 04/11/2019 at 16:42 Approved by: Mihai Liu M.D. on 04/11/2019 at 16:44
--- NOTE | 2019-04-11 15:44 | PM.EVENT ---
Date Patient Seen: 04/11/19 Time Patient Seen: 15:44 Patient evaluated. Passage of large bowel movement and flatus. Continue NGT will hold off on surgery for now. Abdominal XR to evaluate passage of small bowel follow through into colon. Received endoscopy report from demonstrates ulceration at ileocolonic anastamosis otherwise unremarkable.
--- NOTE | 2019-04-11 16:14 | CM.DANOTE ---
Discharge Planning/Care Management DCP: assessment: case received, EMR reviewed and met with pt and his Kelvin. Introduced self and role. Pt is an 78 year old male who admitted yesterday to [place] [facility] Team: Dr. Sorto is seeing him today. PCP: was Dr. Malone, now retired. Was set to have first appt with Dr. Rufina Murphy yesterday to establish care. He was instead admitted to the hospital. NGT continues but pt just this afternoon did pass a large stool, per RN report was green and soft. + flatus. Dr. Sorto is aware and will continue to monitor. Surgery had been considered but now on hold. P: agreed to check in and follow as POC unfolds. Pt is hopeful, he says, that he will be well enough to be able to return home tomorrow and expresses his annoyance that he has been put on Fall Precautions. He is encouraging him to remain patient. CM Discharge Assessment Start: 04/11/19 16:11 Freq: Status: Active Protocol: Document 04/11/19 16:12 ITV (Rec: 04/11/19 16:14 ITV [id number]) Discharge Planning Assessment Advance Directives? Yes: Health Care Directive/ DPOA Advance Directives on File Yes History Provided By Patient Family Member Medical Record Comment Was airlifted to [facility] on March 28 per pt and his . Prior Living Arrangements House Household Members spouse Independent with ADL's Yes: very active at baseline Is patient alert and oriented? Yes Transportation Arrangement Spouse Whiteboard Updated in Patient Room with Yes name and ext. # of Patient [employer]erson Review Status In Process
--- NOTE | 2019-04-11 16:53 | PC.NURSE ---
Addendum entered by Livier Augustine R.N. 04/11/19 19:50: Dr. Sorto at bedside approximately 1930. Discontinued NG tube and ordered clear liquid diet. Original Note: Shift [id number] Report received, care assumed. Pt. had bowel movement on day shift. Now positive for flatus and hypoactive bowel tones. Discussed with Dr. Sorto at bedside. Will hold surgery, abdominal xray to evaluate. Second bowel movement at 1645--moderate, green/brown, soft.
[2019-04-11] MEDS: LATANOPROST 0.005% OPHTH 2.5 ML 1 DROPS EYE-BOTH (20:43)
[2019-04-12] MEDS: LACTATED RINGERS 1,000 ML 100 ML IV (00:58)
--- NOTE | 2019-04-12 03:39 | PC.NURSE ---
patient refused scd and vitals and bsg for the morning round wanted to sleep
[2019-04-12 06:38] VITALS: BP 101/64; PULSE 69; RESP 16; TEMP 36.6; O2SAT 93
[2019-04-12 08:15] VITALS: BP 103/67; PULSE 74; RESP 16; TEMP 36.9; O2SAT 96
[2019-04-12 09:10] VITALS: O2SAT 96
[2019-04-12] MEDS: PANTOPRAZOLE 40 MG VIAL 20 MG IV (09:14)
[2019-04-12] MEDS: TAMSULOSIN 0.4 MG CAPSULE 0.8 MG PO (09:14)
[2019-04-12] MEDS: TIMOLOL 0.5% OPHTH 1 DROPS EYE-RIGHT (09:14)
[2019-04-12 11:15] VITALS: BP 97/58; PULSE 66; RESP 16; TEMP 37.1; O2SAT 96
--- NOTE | 2019-04-12 13:52 | PM.DS.1 ---
History of Present Illness Chief complaint: stomach pain, gas since last night Narrative: CC : Small-bowel obstruction HPI: 78-year-old man with a somewhat complex abdominal surgical history now presents with approximately 16 hours of abdominal pain, bloating, nausea, and vomiting. Briefly in 2010 patient underwent abdominal/chest wall radiation for residual soft tissue lymphoma mass -this mass was surgically biopsied. The remainder of his lymphoma had been successfully treated with chemotherapy. 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 In 2015 he underwent exploratory laparotomy and small-bowel resection for a bezoar within the proximal jejunum. In August of this year he developed a ileo colonic intussusception and was taken to the operating room for partial right colectomy and resection of his terminal ileum. Grossly and pathologically there was significant scarring within this area of bowel -pathology raised the possibility Crohn's disease, however subsequently surgery felt his gross and pathologic data was most consistent with radiation scarring. Patient was in good health had recently eaten coates fruit with pits -feels quite confident did not swallow any pit, as well as stir gomez broccoli -endorses he chewed this quiet well. Yesterday afternoon developed abdominal bloating, periumbilical abdominal pain, nausea and vomiting. This morning he presented to the emergency department where vital signs were normal with the exception of hypertension, WBC 8.3, creatinine 0.9 -CT scan demonstrated an area of jejunum with transition point and fecalization of stool contents at the site of what appears to be the area of his resection in 2015. There was no adjacent mesenteric edema or free fluid. No suggestion of volvulus. 12 F NG tube was placed the emergency department with minimal evacuation of gastric content, patient did vomit once around nasogastric tube X-ray showed NGT within gastric body Discharge Providers Date of admission: 04/10/19 06:49 Discharge Date: 04/12/19 Discharge provider: Kris Cabello Summary Discharge Diagnosis: small bowel obstruction Hospital Course: 78-year-old man with a somewhat complex abdominal surgical history as above presented with s/s of SBO with transition point on CT. An NGT was placed and pt was started on a gastrographin challange with 200ml of solution. After 20hrs post dye pt did not have transit to the colon. He however felt much improved and refused a surgery. On HD2 pt began to have large volume loose stools and flatus resumed. XR of abd on HD3 confirmed contrast w/i colon. He was able to tolerate a full liquid diet and requested discharge. Of not jeffery catheter needed on HD1 for urinary retention - removed with voiding HD3 Status at Discharge Cognitive/behavioral status at discharge: oriented Functional status at discharge: independent ambulation Overall status at discharge: patient is progressing back to baseline Time Spent with Patient Less than 30 minutes Exam Vital Signs (past 8 hours): - 04/12/19 06:38 04/12/19 08:15 04/12/19 09:10 Temperature 98 F 98.5 F Pulse Rate 69 74 Respiratory Rate 16 16 Blood Pressure 101/64 103/67 Pulse Oximetry 93 96 96 04/12/19 11:15 Temperature 98.8 F Pulse Rate 66 Respiratory Rate 16 Blood Pressure 97/58 L Pulse Oximetry 96 Oxygen Delivery Method Room Air Oxygen Flow Rate 0 Narrative Exam Narrative: well appering NAD abd soft, minimally distended, non tender Objective Labs Result Diagrams: 04/11/19 05:06 04/11/19 05:06 Discharge Plan Discharge Plan Patient Disposition: Home Discharge Med Rec/Prescriptions Prescriptions: New acetaminophen 325 mg Tablet 650 mg PO Q6HR Qty: 20 RF: 0 tamsulosin 0.4 mg capsule 0.4 mg PO DAILY Qty: 5 RF: 0 Continued Fish Oil 500 mg PO DAILY Qty: 0 RF: 0 multivitamin [Multiple Vitamins] 1 EACH tablet 1 tab PO DAILY Qty: 0 RF: 0 timolol maleate 0.5 % drops 1 drp EYE-RIGHT BID RF: 0 cholestyramine (with sugar) 4 gram powder in packet 4 g PO DAILY RF: 0 latanoprost 0.005 % drops 1 drp ophthalmic (eye) BEDTIME RF: 0 omeprazole magnesium [Prilosec OTC] 20 mg Tablet,Delayed Release (Dr/Ec) 10 mg PO DAILY RF: 0 Vitamin D3 1 cap PO DAILY RF: 0 tramadol 50 mg tablet 50 mg PO Q6H PRN (Reason: pain) Qty: 10 RF: 0 Discontinued oxycodone-acetaminophen [Percocet] 5-325 mg tablet See Rx Instructions PO Q4-6H PRN (Reason: painful procedure) Qty: 14 RF: 0 budesonide 9 mg tablet,delayed and ext.release 9 mg PO DAILY Qty: 30 RF: 0 Follow up/Referrals: Kris Cabello MD [Physician] - (Call for follow up if having difficulty) Provider Discharge Instructions Diet: Full Liquid Diet comment: full liquid for 1 week then if well ok for usual foods Activity: No restrictions Skin/Wound/Dressing Care Report to your healthcare provider any signs of infection, such as:: chills, fever and increased pain Discharge Data Attending Provider: Kris Cabello Admit Date/Time: 04/10/19 06:49
--- NOTE | 2019-04-12 14:03 | CM.DPC ---
Addendum entered by Miguelina Hunter LPN 04/12/19 14:08: [facility]EE [facility]. Original Note: DCP: continued: Checked in now with pt and his after seeing surgeon in room and now with a d/c to home order. Pt is found up, smiling, moving about room getting ready for his d/c home. MADINA Riojas is starting the d/c paperwork. ROSALEE#2: presented and signed by Kelvin as pt is busy and per his ok. He laughs and notes I certainly do not wish to contest my discharge. I am glad I am ok'd to go today. Home today and with clinic followup planned.
--- NOTE | 2019-04-12 14:39 | PC.NURSE ---
Discharge pt states he has no pain. able to urinate after jeffery removal. PVR checked and was 35ml. d/c instructions provided to pt. Aware to f/u with Dr Cabello if needed for any additional issues. Will contact GI MD as well for f/u. Pt received eye drops from home. Pt took all belongings with him. left in w/c with and [employer] escort.
== END 2019-04-12 14:44 | disposition home or self-care (01) | DRG 390 ==
LOC: ED 04:42 → AC 06:50
PROVIDERS: Admitting Provider Surgery; Emergency Provider Emergency Medicine; Visit Provider Surgery
DX: K56.50 Intestinal adhesions [bands], unspecified as to partial versus complete obstruction (principal); Z85.72 Personal history of non-Hodgkin lymphomas
CPT/HCPCS: 36415; 36591; 71045; 74018; 74022; 74177; 74250; 80048; 80053; 82962; 83690; 83735; 85025; 86850; 86900; 86901; 94762; 96374; 96376; 99222; 99231; 99238; 99283; 99285; C9113; J1170; J1644; J2405; J2765; Q9967

== ENCOUNTER 2019-04-15 19:32 | Emergency (ER) | payer MEDICARE, SELFPAY ==
[2019-04-10 11:00] VITALS: BMI 22.6
[2019-04-15 19:38] VITALS: BP 125/76; PULSE 82; RESP 16; TEMP 37.6; O2SAT 95; BMI 21.5
[2019-04-15 20:14] LABS: Add Manual Diff / Slide Review NO; Basophils Absolute Auto 0 /uL (0-100); Basophils Percent Auto 0.2 % (0-2); Eosinophils Absolute Auto 100 /uL (0-450); Eosinophils Percent Auto 0.9 % (2-4); Hematocrit 30.6 % (41-53); Hemoglobin 10.2 g/dL (13.5-17.5); Lymphocytes Absolute Auto 1500 /uL (1100-4500); Lymphocytes Percent Auto 10.7 % (25-40); Mean Corpuscular HGB Conc 33.4 % (30-36); Mean Corpuscular Hemoglobin 29.8 PG (26-34); Mean Corpuscular Volume 89.3 fL (80-100); Monocytes Absolute Auto 1300 /uL (0-900); Monocytes Percent Auto 9.5 % (3-14); Neutrophils Absolute Auto 11200 /uL (1500-7000); Neutrophils Percent Auto 78.7 % (50-75); Platelet Count 274 X10^3/uL (150-400); Red Blood Cell Count 3.43 X10^6/uL (4.5-5.9); Red Cell Distribution Width 15.1 % (11.6-14.8); White Blood Cell Count 14.2 X10^3/uL (4.5-11.0)
--- NOTE | 2019-04-15 20:24 | ED_ITS ---
HPI - Male Genitourinary General Chief complaint: Urogenital-Male Stated complaint: bladder not empting, fever of 102 Time Seen by Provider: 04/15/19 19:32 Source: patient and family Mode of arrival: ambulatory Limitations: no limitations History of Present Illness HPI Narrative: 78-year-old male nonsmoker presents with his in the chief complaint of urinary frequency, urgency and feeling generally ill for the past day or 2. He has had a fever at home as high as 102 in complaint of shaking chills. He denies nausea or vomiting nor abdominal pain. He was recently admitted for small bowel obstruction which resolved on its own without surgical intervention, during his admission he had a Gann catheter for a few days. He contacted his admitting physician who put him on Bactrim a day and a half ago. He denies any runny nose or sore throat. He denies chest pain, shortness of breath or cough. MD Complaint: dysuria Onset (ago): day(s) Duration: constant Severity: moderate Reports dysuria and fever Related Data Home Medications Medication Instructions Recorded Confirmed Fish Oil 500 mg PO DAILY #0 06/24/11 09/29/18 multivitamin [Multiple Vitamins] 1 tab PO DAILY #0 01/05/17 09/29/18 Vitamin D3 1 cap PO DAILY 09/06/18 09/29/18 latanoprost 1 drp OPHTHALMIC (EYE) BEDTIME 09/06/18 04/10/19 omeprazole magnesium [Prilosec OTC] 10 mg PO DAILY 09/06/18 09/29/18 cholestyramine (with sugar) 4 g PO DAILY 04/10/19 04/10/19 timolol maleate 1 drp EYE-RIGHT BID 04/10/19 04/10/19 Previous Rx's Medication Instructions Recorded tramadol 50 mg PO Q6H PRN #10 tab 10/06/18 acetaminophen 650 mg PO Q6HR #20 tab 04/12/19 tamsulosin 0.4 mg PO DAILY #5 cap 04/12/19 sulfamethoxazole-trimethoprim 1 tab PO BID #10 tab 04/14/19 Allergies Allergy/AdvReac Type Severity Reaction Status Date / Time No Known Drug Allergies Allergy Verified 03/27/19 21:11 Review of Systems Constitutional Reports chills, Reports fever(s), Denies lethargy and Denies weakness Eyes Denies change in vision, Denies eye discharge, Denies irritation and Denies loss of vision ENT Ears, Nose, Mouth, and Throat: Denies change in voice, Denies neck pain and Denies sore throat Cardiovascular Denies chest pain, Denies irregular heart rhythm, Denies lightheadedness, Denies palpitations, Denies dyspnea, Denies dyspnea on exertion and Denies orthopnea Respiratory Denies cough, Denies dyspnea, Denies dyspnea on exertion and Denies wheezing Gastrointestinal Gastrointestinal: Denies abdominal pain, Denies change in bowel habits, Denies diarrhea, Denies nausea and Denies vomiting Genitourinary Denies hematuria, Reports dysuria, Denies flank pain, Reports urinary frequency, Denies urinary incontinence and Reports urinary urgency Musculoskeletal Denies neck pain Integumentary/Breasts Denies pruritus, Denies erythema, Denies rash and Denies wounds Neurologic Denies confusion, Denies loss of vision and Denies weakness Psychiatric Denies anxiety, Denies confusion, Denies depression, Denies homicidal ideation and Denies suicidal ideation Endocrine Denies palpitations Hematologic/Lymphatic Denies easy bruising Allergic/Immunologic Denies wheezing [facility] Medical History BPH (benign prostatic hyperplasia) (Acute) Non Hodgkin's lymphoma (Acute) Small bowel obstruction (Acute) Surgical History History of bowel resection (Acute) Port catheter in place Port catheter in place Status post hernia repair Social History household members: spouse Smoking Status: Never smoker alcohol intake: current Social History household members: spouse Smoking Status: Never smoker alcohol intake: current Exam Narrative Exam Narrative: GENERAL: [78] year old patient appears stated age. Well- nourished, well-developed patient, in mild distress. Hard of hearing HEAD: Atraumatic. Normocephalic. EYES: Pupils equal round and reactive. Extraocular motions intact. No scleral icterus. No injection or drainage. ENT: Nose without bleeding, purulent drainage. Throat without erythema, tonsilla r hypertrophy or exudate. Airway patent. NECK: Trachea midline. Non tender CARDIOVASCULAR: Regular rate and rhythm without murmurs, gallops, or rubs. RESPIRATORY: Clear to auscultation. Breath sounds equal bilaterally. No wheezes, rales, or rhonchi. GASTROINTESTINAL: Abdomen soft, non-tender, nondistended. EXTREMITIES: No edema or joint tenderness. BACK: Nontender without deformity or crepitance. No flank tenderness. NEURO: AOx3. SKIN: No rash or erythema of visible areas Initial Vital Signs Initial Vital Signs: Vital Signs Temperature 99.7 F H 04/15/19 19:38 Pulse Rate 82 04/15/19 19:38 Respiratory Rate 16 04/15/19 19:38 Blood Pressure 125/76 04/15/19 19:38 Pulse Oximetry 95 04/15/19 19:38 Course Orders Ordered: ED Orders 04/15/19 20:45 Blood Culture Stat Consultations Consultation #1: Discussion with Dr. Max regarding this patient's presentation, no obvious need for admission Vital Signs - 8 hr 04/15/19 21:00 04/15/19 21:56 Temperature 98.7 F Pulse Rate 68 65 Respiratory Rate 19 18 Blood Pressure [Left Arm] 112/57 L 108/59 L Pulse Oximetry 95 95 MDM - Male Genitourinary Lab Data Result diagrams: 04/15/19 19:55 04/15/19 19:55 Lab Results 04/15/19 04/15/19 04/15/19 Range/Units 19:55 19:55 19:55 WBC 14.2 H (4.5-11.0) X10^3/uL RBC 3.43 L (4.5-5.9) X10^6/uL Hgb 10.2 L (13.5-17.5) g/dL Hct 30.6 L (41-53) % MCV 89.3 (80-100) fL MCH 29.8 (26-34) PG MCHC 33.4 (30-36) % RDW 15.1 H (11.6-14.8) % Plt Count 274 (150-400) X10^3/uL Neut % (Auto) 78.7 H (50-75) % Lymph % (Auto) 10.7 L (25-40) % Bartholomew % (Auto) 9.5 (3-14) % Eos % (Auto) 0.9 L (2-4) % Baso % (Auto) 0.2 (0-2) % Neut # (Auto) 41191 H (9219-3716) /uL Lymph # (Auto) 1500 (8513-8381) /uL Bartholomew # (Auto) 1300 H (0-900) /uL Eos # (Auto) 100 (0-450) /uL Baso # (Auto) 0 (0-100) /uL Sodium 131 L (137-145) mmol/L Potassium 4.2 (3.4-5.1) mmol/L Chloride 93 L (98-107) mmol/L Carbon Dioxide 26 (22-32) mmol/L BUN 11 (9-20) mg/dL Creatinine 1.20 (0.66-1.25) mg/dL Estimated GFR 58.3 L (>60) mL/min BUN/Creatinine Ratio 9.2 (6-22) Glucose 110 (80-110) mg/dL Lactate (0.7-2.1) mmol/L Calcium 9.0 (8.4-10.2) mg/dL Total Bilirubin 0.7 (0.2-1.3) mg/dL AST 29 (17-59) IU/L ALT 24 (21-72) IU/L Alkaline Phosphatase 68 (38-126) U/L Total Protein 7.5 (6.3-8.2) g/dL Albumin 4.0 (3.5-5.0) g/dL Globulin 3.5 (1.7-4.1) g/dL Albumin/Globulin Ratio 1.1 (1.0-2.8) Procalcitonin 0.07 (<0.5) ng/mL 04/15/19 Range/Units 19:55 WBC (4.5-11.0) X10^3/uL RBC (4.5-5.9) X10^6/uL Hgb (13.5-17.5) g/dL Hct (41-53) % MCV (80-100) fL MCH (26-34) PG MCHC (30-36) % RDW (11.6-14.8) % Plt Count (150-400) X10^3/uL Neut % (Auto) (50-75) % Lymph % (Auto) (25-40) % Bartholomew % (Auto) (3-14) % Eos % (Auto) (2-4) % Baso % (Auto) (0-2) % Neut # (Auto) (3240-3972) /uL Lymph # (Auto) (5775-6417) /uL Bartholomew # (Auto) (0-900) /uL Eos # (Auto) (0-450) /uL Baso # (Auto) (0-100) /uL Sodium (137-145) mmol/L Potassium (3.4-5.1) mmol/L Chloride (98-107) mmol/L Carbon Dioxide (22-32) mmol/L BUN (9-20) mg/dL Creatinine (0.66-1.25) mg/dL Estimated GFR (>60) mL/min BUN/Creatinine Ratio (6-22) Glucose (80-110) mg/dL Lactate 0.8 (0.7-2.1) mmol/L Calcium (8.4-10.2) mg/dL Total Bilirubin (0.2-1.3) mg/dL AST (17-59) IU/L ALT (21-72) IU/L Alkaline Phosphatase (38-126) U/L Total Protein (6.3-8.2) g/dL Albumin (3.5-5.0) g/dL Globulin (1.7-4.1) g/dL Albumin/Globulin Ratio (1.0-2.8) Procalcitonin (<0.5) ng/mL Urine Dip Bedside Urine Glucose Negative Bedside Urine Bilirubin - Negative Bedside Urine Ketone - Negative Urine Specific [place] 1.010 Bedside Urine Occult Blood - Negative Bedside Urine pH 7.0 Bedside Urine Protein - Negative Bedside Urine Urobilinogen - Negative Bedside Urine Nitrite - Negative Bedside Urine Leukocytes - Negative Esterase MDM Narrative Medical decision making narrative: 78-year-old male recently admitted for bowel obstruction with spontaneous resolution had symptoms consistent with a UTI few days ago and had a prescription for Bactrim called in. He presents at the requ est of the on-call surgeon for evaluation of inability to urinate. In the and the patient describes what is most consistent with urinary urgency and frequency as opposed to inability to start a stream. He had bladder scan noting 91 mL in his bladder. His urinalysis tonight is not terribly convincing but he has been on antibiotics for a few days. Labs are very reassuring and extensive return pr ecautions were given to the patient, he and had questions answered to their apparent satisfaction Discharge Plan Departure Patient Disposition: Home Clinical Impression: Acute UTI Discharge Date/Time: 04/15/19 20:00 Interventions: ED Discharge Assessment Last Done: 04/15/19 22:00 Instructions: DI for Urinary Tract Infection (UTI) Activity Restrictions/Additional Instructions: *You have been diagnosed with [acute urinary tract infection] *What to do: *Continue to take medications as directed *Follow up with your primary care provider in 2-3 days, call for an appointment. Let them know you were seen in the Emergency Department and that we ask that you be seen in follow up *Return to ER if you should have any new, worsening or concerning symptoms Prescriptions: No Action Fish Oil 500 mg PO DAILY Qty: 0 RF: 0 multivitamin [Multiple Vitamins] 1 EACH tablet 1 tab PO DAILY Qty: 0 RF: 0 timolol maleate 0.5 % drops 1 drp EYE-RIGHT BID RF: 0 cholestyramine (with sugar) 4 gram powder in packet 4 g PO DAILY RF: 0 acetaminophen 325 mg Tablet 650 mg PO Q6HR Qty: 20 RF: 0 tamsulosin 0.4 mg capsule 0.4 mg PO DAILY Qty: 5 RF: 0 sulfamethoxazole-trimethoprim 800-160 mg tablet 1 tab PO BID Qty: 10 RF: 0 latanoprost 0.005 % drops 1 drp ophthalmic (eye) BEDTIME RF: 0 omeprazole magnesium [Prilosec OTC] 20 mg Tablet,Delayed Release (Dr/Ec) 10 mg PO DAILY RF: 0 Vitamin D3 1 cap PO DAILY RF: 0 tramadol 50 mg tablet 50 mg PO Q6H PRN (Reason: pain) Qty: 10 RF: 0 Referrals: Joshua Max MD [Family Provider] -
[2019-04-15 20:31] LABS: Alanine Aminotransferase 24 IU/L (21-72); Albumin Globulin Ratio 1.1 (1.0-2.8); Alkaline Phosphatase 68 U/L (38-126); Aspartate Aminotransferase 29 IU/L (17-59); BUN Creatinine Ratio 9.2 (6-22); Bilirubin Total 0.7 mg/dL (0.2-1.3); Blood Urea Nitrogen 11 mg/dL (9-20); Carbon Dioxide 26 mmol/L (22-32); Chloride 93 mmol/L (98-107); Estimated Glomerular Filt Rate 58.3 mL/min (>60); Globulin 3.5 g/dL (1.7-4.1); Glucose 110 mg/dL (80-110); HEMOLYSIS < 15 (0-50); Potassium 4.2 mmol/L (3.4-5.1); Sodium 131 mmol/L (137-145); Total Protein 7.5 g/dL (6.3-8.2)
[2019-04-15 20:44] LABS: Lactate (Lactic Acid) 0.8 mmol/L (0.7-2.1)
[2019-04-15 20:53] LABS: Procalcitonin 0.07 ng/mL (<0.5)
[2019-04-15 21:00] VITALS: BP 112/57; PULSE 68; RESP 19; O2SAT 95
[2019-04-15 21:56] VITALS: BP 108/59; PULSE 65; RESP 18; TEMP 37.1; O2SAT 95
== END 2019-04-15 20:00 | disposition home or self-care (01) ==
PROVIDERS: Emergency Provider Emergency Medicine; Family Provider Specialist
DX: N39.0 Urinary tract infection, site not specified (principal)
CPT/HCPCS: 36415; 36591; 51798; 80053; 81003; 83605; 84145; 85025; 87040; 99283

== ENCOUNTER → 2019-07-09 13:20 | Outpatient (CLI) | payer MEDICARE, SELFPAY ==
[2019-04-10 11:00] VITALS: BMI 22.6
[2019-07-09 14:37] LABS: Add Manual Diff / Slide Review NO; Basophils Absolute Auto 100 /uL (0-100); Basophils Percent Auto 1.1 % (0-2); Eosinophils Absolute Auto 300 /uL (0-450); Eosinophils Percent Auto 5.9 % (2-4); Hematocrit 38.2 % (41-53); Hemoglobin 12.5 g/dL (13.5-17.5); Lymphocytes Absolute Auto 1600 /uL (1100-4500); Lymphocytes Percent Auto 28.5 % (25-40); Mean Corpuscular HGB Conc 32.8 % (30-36); Mean Corpuscular Hemoglobin 26.3 PG (26-34); Mean Corpuscular Volume 80.3 fL (80-100); Monocytes Absolute Auto 700 /uL (0-900); Monocytes Percent Auto 13.1 % (3-14); Neutrophils Absolute Auto 2900 /uL (1500-7000); Neutrophils Percent Auto 51.4 % (50-75); Platelet Count 242 X10^3/uL (150-400); Red Blood Cell Count 4.76 X10^6/uL (4.5-5.9); Red Cell Distribution Width 22.2 % (11.6-14.8); White Blood Cell Count 5.7 X10^3/uL (4.5-11.0)
[2019-07-09 16:02] LABS: Anisocytosis 2+; Poikilocytosis 1+
== END ==
PROVIDERS: Family Provider Specialist; PCP Student in an Organized Health Care Education/Training Program; Visit Provider Student in an Organized Health Care Education/Training Program
DX: D50.9 Iron deficiency anemia, unspecified (principal)
CPT/HCPCS: 36415; 85025

== ENCOUNTER → 2019-07-18 14:00 | Oncology outpatient (ONC) | payer MEDICARE, SELFPAY ==
[2019-04-10 11:00] VITALS: BMI 22.6
[2019-06-19] MEDS: IRON SUCROSE 200 MG in SODIUM CHLORIDE 0.9% 100 ML 220 ML IV (15:11)
[2019-06-19 15:36] VITALS: BP 111/59; PULSE 64; RESP 18; TEMP 36.8; O2SAT 96
--- NOTE | 2019-06-19 15:37 | PC.NURSE ---
Pt currently receiving iron infusion, tolerating well. Denies chest pain and SOB. Denies N/V. Speech clear. Education provided to pt r/t iron infusion, verbalized understanding, agrees to alert nursing staff if any s/s of reaction or discomfort arise. Face and body relaxed, RR equal and unlabored.
[2019-06-27] MEDS: IRON SUCROSE 200 MG in SODIUM CHLORIDE 0.9% 100 ML 220 ML IV (14:36)
[2019-06-27 14:43] VITALS: BP 131/74; PULSE 64; RESP 16; TEMP 36.7; O2SAT 97
[2019-06-27 14:43] LABS: Add Manual Diff / Slide Review NO; Basophils Absolute Auto 100 /uL (0-100); Basophils Percent Auto 1.1 % (0-2); Eosinophils Absolute Auto 400 /uL (0-450); Hematocrit 36.6 % (41-53); Lymphocytes Absolute Auto 1700 /uL (1100-4500); Lymphocytes Percent Auto 32.1 % (25-40); Mean Corpuscular HGB Conc 32.8 % (30-36); Mean Corpuscular Hemoglobin 26.1 PG (26-34); Mean Corpuscular Volume 79.5 fL (80-100); Monocytes Absolute Auto 700 /uL (0-900); Monocytes Percent Auto 13.8 % (3-14); Neutrophils Absolute Auto 2400 /uL (1500-7000); Platelet Count 248 X10^3/uL (150-400); Red Blood Cell Count 4.61 X10^6/uL (4.5-5.9); Red Cell Distribution Width 19.1 % (11.6-14.8); White Blood Cell Count 5.2 X10^3/uL (4.5-11.0)
--- NOTE | 2019-06-27 15:07 | PC.NURSE ---
Pt c/o GERD like symptoms and asked for a glass of water. VS were taken BP 144/77, P 60, O2 95 T 97.7 (after pt drank ice water) no other symptoms noted. Infusion of iron was decreased to 125 mls/hr, pt reported that GERD symptoms subsided.
[2019-06-27 15:08] VITALS: BP 144/77; PULSE 60; RESP 16; TEMP 36.5; O2SAT 95
[2019-07-03 15:14] LABS: Add Manual Diff / Slide Review NO; Basophils Absolute Auto 100 /uL (0-100); Eosinophils Absolute Auto 300 /uL (0-450); Eosinophils Percent Auto 6.7 % (2-4); Hematocrit 35.8 % (41-53); Hemoglobin 11.4 g/dL (13.5-17.5); Lymphocytes Absolute Auto 1700 /uL (1100-4500); Lymphocytes Percent Auto 34.1 % (25-40); Mean Corpuscular HGB Conc 31.9 % (30-36); Mean Corpuscular Hemoglobin 25.8 PG (26-34); Mean Corpuscular Volume 80.9 fL (80-100); Monocytes Absolute Auto 600 /uL (0-900); Monocytes Percent Auto 11.3 % (3-14); Neutrophils Absolute Auto 2400 /uL (1500-7000); Neutrophils Percent Auto 46.9 % (50-75); Platelet Count 241 X10^3/uL (150-400); Red Blood Cell Count 4.43 X10^6/uL (4.5-5.9); Red Cell Distribution Width 20.2 % (11.6-14.8); White Blood Cell Count 5.1 X10^3/uL (4.5-11.0)
[2019-07-03] MEDS: IRON SUCROSE 200 MG in SODIUM CHLORIDE 0.9% 100 ML 220 ML IV (15:14)
[2019-07-03 15:27] VITALS: BP 142/84; PULSE 60; RESP 18; TEMP 36.5; O2SAT 98
[2019-07-03 15:34] LABS: Anisocytosis 2+; Poikilocytosis 1+
[2019-07-10] MEDS: IRON SUCROSE 200 MG in SODIUM CHLORIDE 0.9% 100 ML 220 ML IV (14:47)
[2019-07-18 14:18] VITALS: BP 121/80; PULSE 71; RESP 16; TEMP 36.6; O2SAT 97
--- NOTE | 2019-07-18 15:29 | P.CONONC_ITS ---
History of Present Illness - Data of Consult Consult date: 07/18/19 Primary Care Provider: Zahra Sutton MD - Consult Narrative Narrative: Diagnosis: Iron deficiency anemia Previous treatment: IV iron. He has had 4 infusions and is due for his 5th today. History of present illness: Yung Conn is a 78 year old male who is referred for further evaluation of iron deficiency anemia. He has a history of non-Hodgkin's lymphoma diagnosed in 2010. He was treated with R-CHOP followed by radiation therapy. He has been in remission ever since. Since then, he has had some irregularity of the ileum. He underwent an endoscopy that showed ulcers. He was diagnosed with Crohn's disease. He was treated with a number of different medications but really did not have any improvement. He has been bothered by ongoing diarrhea. He has had prior symptoms suggestive of a bowel obstruction. He has undergone couple of surgical procedures including resection of part of his ileum. He also has been treated with hyperbaric oxygen. Last summer, he developed significant bloody diarrhea. He did have a transfusion and was transferred to [facility]. Since then, his bleeding has stopped and he has not had any further episodes. He developed significant anemia and was found to have a low ferritin. He has started on IV iron and has had 4 of 5 scheduled infusions thus far. He has been tolerating them fairly well but has had some irregular heartbeat. He also notes that he feels like he is in a daze or fog sometimes. He denies shortness of breath. No dizziness or lightheadedness. No chest pain or palpitations. Prior to his episode the summer, he has never required any transfusion. Is most recent blood work from June 11 showed a ferritin of 5 iron was 48 with a TIBC of 386 his white count was 4.7 hemoglobin was 10.6 hematocrit 32.5 with an MCV of 80.3 and platelets were 254,000. In March his hematocrit had been 31. It has been gradually improving since then. His past medical history is otherwise notable for an irregular heartbeat, hypertension hyperlipidemia. He has a history of lymphoma as described above. He has had prior episodes of bowel obstruction requiring surgical treatment. Social history: He is retired from commercial real estate. He does not smoke. He does drink some alcohol. Family history is negative for anemia. CC: Tc Saleem MD Home Medications and Allergies Home Medications Medication Instructions Recorded Confirmed Type latanoprost 1 drp OPHTHALMIC (EYE) BEDTIME 09/06/18 04/10/19 History omeprazole magnesium [Prilosec OTC] 10 mg PO DAILY 09/06/18 09/29/18 History cholestyramine (with sugar) 2 g PO DAILY 04/10/19 04/10/19 History acetaminophen 650 mg PO Q6HR #20 tab 04/12/19 Rx Allergies Allergy/AdvReac Type Severity Reaction Status Date / Time No Known Drug Allergies Allergy Verified 03/27/19 21:11 Medical History - Medical, Surgical, Family History Medical History: Medical History (Last Reviewed 04/15/19 @ 20:24 by Drew Galeas DO) BPH (benign prostatic hyperplasia) Non Hodgkin's lymphoma Small bowel obstruction Surgical History: Surgical History (Last Reviewed 04/15/19 @ 20:24 by Drew Galeas DO) History of bowel resection Port catheter in place Port catheter in place Status post hernia repair - Social History Smoking Status: Never smoker Review of Systems - Patient Self-Reported Symptoms SR respiratory issues: Shortness of breath SR Genitourinary issues: Frequent urination SR Musculoskeletal issues: Back or neck pain, Cold hands or feet Constitutional: normal activity level, no weight loss Ears, nose, mouth, throat: no headaches, no vertigo, no lightheadedness Cardiovascular: palpitations, no dyspnea on exertion Respiratory: no cough Gastrointestinal: diarrhea, no hematemesis Musculoskeletal: no pain Integumentary: no bleeding or bruising Hematologic/Lymphatic: anemia, no enlarged lymph nodes Exam Vital signs: Vital Signs Temp Pulse Resp BP Pulse Ox 07/18/19 14:18 97.9 F 71 16 121/80 97 Intake and Output 07/17/19 07/18/19 07/18/19 23:59 07:59 15:59 Other: Weight 78.3 kg Patient Weight 07/18/19 23:59 Weight 78.3 kg - Constitutional positive no acute distress, positive average body habitus - Routine HEENT Exam Head: Present: normocephalic, atraumatic Eye: Present: EOMI, PERRL. Absent: conjunctival icterus, scleral injection ENT: Present: mucous membranes moist, oropharynx clear - Routine Neck Exam Present: supple. Absent: lymphadenopathy, thyromegaly - Routine Chest/Breast/Axilla Exam Axillae: Absent: lymphadenopathy - Routine Respiratory Exam Present: Clear to auscultation bilaterally. Absent: rales, wheezes - Routine Cardiovascular Exam Present: RRR, S1, S2. Absent: murmur Comments: He did have occasional skipped beat. - Routine Abdominal Exam Present: soft, normoactive bowel sounds. Absent: tenderness, organomegaly, mass - Routine Extremities Exam Absent: cyanosis, clubbing, edema - Routine Back/Spine Exam Back/Spine: Absent: vertebral tenderness - Routine Skin Exam Present: intact. Absent: petechiae, rash - Routine Neurological Exam Present: alert, oriented X3 - Routine Psychiatric Exam Present: normal affect, normal thought process Results - Labs Laboratory Last Values WBC 5.1 X10^3/uL (4.5-11.0) 07/03/19 15:06 RBC 4.43 X10^6/uL (4.5-5.9) L 07/03/19 15:06 Hgb 11.4 g/dL (13.5-17.5) L 07/03/19 15:06 Hct 35.8 % (41-53) L 07/03/19 15:06 MCV 80.9 fL (80-100) 07/03/19 15:06 MCH 25.8 PG (26-34) L 07/03/19 15:06 MCHC 31.9 % (30-36) 07/03/19 15:06 RDW 20.2 % (11.6-14.8) H 07/03/19 15:06 Plt Count 241 X10^3/uL (150-400) 07/03/19 15:06 Neut % (Auto) 46.9 % (50-75) L 07/03/19 15:06 Lymph % (Auto) 34.1 % (25-40) 07/03/19 15:06 [place] % (Auto) 11.3 % (3-14) 07/03/19 15:06 Eos % (Auto) 6.7 % (2-4) H 07/03/19 15:06 Baso % (Auto) 1.0 % (0-2) 07/03/19 15:06 Neut # (Auto) 2400 /uL (1227-3554) 07/03/19 15:06 Lymph # (Auto) 1700 /uL (9809-6832) 07/03/19 15:06 [place] # (Auto) 600 /uL (0-900) 07/03/19 15:06 Eos # (Auto) 300 /uL (0-450) 07/03/19 15:06 Baso # (Auto) 100 /uL (0-100) 07/03/19 15:06 RBC Morphology See below 07/03/19 15:06 Poikilocytosis 1+ H 07/03/19 15:06 Anisocytosis 2+ H 07/03/19 15:06 - Imaging Additional studies: Procedures Excision of Mesenteric Lymphatic, Open Approach, Diagnostic (10/14/15) Extirpation of Matter from Jejunum, Open Approach (10/14/15) Insertion of totally implantable vascular access device [VAD] (11/05/10) Other soft tissue x-ray of face, head, and neck (11/05/10) Assessment and Plan (1) Iron (Fe) deficiency anemia Current visit: Yes Status: Acute As 78-year-old man with iron deficiency anemia due to GI blood loss. He has tolerated his infusions without the significant difficulty. We will proceed with his 5th infusion today. We will plan on checking a CBC as well as a ferritin. Because he has had resection of his ileum, I think is important to check a B12 level as well. If those are normal, I do not think he needs to follow-up here but can follow up with his primary physician. He does have a distant history of lymphoma but appears to be cured from that. No specific follow-up is required from that standpoint.
[2019-07-18] MEDS: IRON SUCROSE 200 MG in SODIUM CHLORIDE 0.9% 100 ML 220 ML IV (15:35)
[2019-07-18 15:36] LABS: Add Manual Diff / Slide Review NO; Basophils Absolute Auto 100 /uL (0-100); Eosinophils Absolute Auto 300 /uL (0-450); Hemoglobin 12.8 g/dL (13.5-17.5); Lymphocytes Absolute Auto 1500 /uL (1100-4500); Lymphocytes Percent Auto 29.6 % (25-40); Mean Corpuscular HGB Conc 32.8 % (30-36); Mean Corpuscular Hemoglobin 26.7 PG (26-34); Mean Corpuscular Volume 81.5 fL (80-100); Monocytes Absolute Auto 600 /uL (0-900); Monocytes Percent Auto 12.3 % (3-14); Neutrophils Absolute Auto 2500 /uL (1500-7000); Neutrophils Percent Auto 51.1 % (50-75); Platelet Count 223 X10^3/uL (150-400); Red Blood Cell Count 4.79 X10^6/uL (4.5-5.9); Red Cell Distribution Width 24.2 % (11.6-14.8); White Blood Cell Count 4.9 X10^3/uL (4.5-11.0)
[2019-07-18 16:14] LABS: Anisocytosis 2+; Hypochromasia 1+; Target Cells 1+
[2019-07-18 16:35] LABS: Ferritin 75.5 ng/mL (17.9-464)
[2019-07-18 16:48] LABS: Vitamin B12 340 pg/mL (239-931)
== END ==
PROVIDERS: Family Provider Specialist; PCP Student in an Organized Health Care Education/Training Program
DX: D50.0 Iron deficiency anemia secondary to blood loss (chronic) (principal); K50.90 Crohn's disease, unspecified, without complications; I49.9 Cardiac arrhythmia, unspecified; I10 Essential (primary) hypertension; E78.5 Hyperlipidemia, unspecified; Z85.72 Personal history of non-Hodgkin lymphomas
CPT/HCPCS: 36000; 36415; 82607; 82728; 85025; 96365; 99204; 99214; J1756

== ENCOUNTER → 2019-08-03 10:21 | Outpatient (CLI) | payer MEDICARE, SELFPAY ==
[2019-04-10 11:00] VITALS: BMI 22.6
--- NOTE | 2019-08-03 | DI.RAD.S_ITS ---
PROCEDURE: XR CHEST 2V INDICATIONS: PALPITATIONS GETTING WORSE TECHNIQUE: 2 views of the chest were acquired. COMPARISON: [facility], , XR CHEST 1V, 04/10/2019, 8:15. [facility], , CHEST 1 VIEW, 10/15/2015, 4:08. FINDINGS: Surgical changes and devices: None. Lungs and pleura: Lungs are clear. No pleural effusions or pneumothorax. Mediastinum: Mediastinal contours are normal. Heart size is normal. Bones and chest wall: No suspicious bony abnormalities. Soft tissues appear unremarkable. IMPRESSION: Normal for age, source of current worsening palpitation symptoms is not seen. Dictated by: Mihai Liu M.D. on 08/03/2019 at 11:07 Approved by: Mihai Liu M.D. on 08/03/2019 at 11:08
== END ==
PROVIDERS: Family Provider Specialist; PCP Student in an Organized Health Care Education/Training Program; Visit Provider Student in an Organized Health Care Education/Training Program
DX: R00.2 Palpitations (principal)
CPT/HCPCS: 71046

== ENCOUNTER 2019-08-31 15:46 | Emergency (ER) | payer MEDICARE, SELFPAY ==
[2019-04-10 11:00] VITALS: BMI 22.6
[2019-08-31 15:50] VITALS: BP 158/80; PULSE 84; RESP 24; TEMP 36.3; O2SAT 97; BMI 24.0
--- NOTE | 2019-08-31 15:58 | DI.RAD.S_ITS ---
PROCEDURE: XR CHEST 1V INDICATIONS: Dizzy TECHNIQUE: One view of the chest was acquired. COMPARISON: [facility], CT, CHEST/ABD/PEL WITH CONTRAST, 10/14/2015, 4:35. [facility], CR, XR CHEST 1V, 04/10/2019, 8:15. [facility], CR, XR CHEST 2V, 08/03/2019, 10:23. FINDINGS: Surgical changes and devices: Small metallic densities are evident overlying the right upper quadrant, similar to the prior study. Lungs and pleura: Subtle increased density is seen within the right lung apex, which is similar to the previous exams. No other areas of consolidation or increased density are appreciated. No effusion or pneumothorax is appreciated. Mediastinum: Mediastinal contours appear normal. Heart size is normal. Bones and chest wall: No suspicious bony lesions. Overlying soft tissues appear unremarkable. IMPRESSION: Subtle increased density within the right upper lobe has been present on multiple previous exams and is felt to represent a chronic finding. However, superimposed pneumonia is difficult to exclude. Dictated by: Dorian Lee M.D. on 08/31/2019 at 15:36 Approved by: Dorian Lee M.D. on 08/31/2019 at 15:40
[2019-08-31 16:13] LABS: Bacteria Urine None Seen; RBC Urine None Seen (0-5/HPF)
[2019-08-31 16:15] LABS: Add Manual Diff / Slide Review NO; Basophils Absolute Auto 0 /uL (0-100); Basophils Percent Auto 0.9 % (0-2); Eosinophils Absolute Auto 300 /uL (0-450); Hematocrit 41.3 % (41-53); Hemoglobin 13.8 g/dL (13.5-17.5); Lymphocytes Absolute Auto 1400 /uL (1100-4500); Lymphocytes Percent Auto 25.8 % (25-40); Mean Corpuscular HGB Conc 33.4 % (30-36); Mean Corpuscular Hemoglobin 28.9 PG (26-34); Mean Corpuscular Volume 86.5 fL (80-100); Monocytes Absolute Auto 400 /uL (0-900); Monocytes Percent Auto 7.6 % (3-14); Neutrophils Absolute Auto 3200 /uL (1500-7000); Neutrophils Percent Auto 60.7 % (50-75); Platelet Count 215 X10^3/uL (150-400); Red Blood Cell Count 4.77 X10^6/uL (4.5-5.9); Red Cell Distribution Width 21.8 % (11.6-14.8); White Blood Cell Count 5.3 X10^3/uL (4.5-11.0)
[2019-08-31 16:23] LABS: Appearance Urine UA CLEAR; Bilirubin Urine UA NEGATIVE (NEGATIVE); Color Urine UA YELLOW; Glucose Urine UA TRACE g/dL (Negative); Ketones Urine UA NEGATIVE (NEGATIVE); Leukocyte Esterase Urine UA NEGATIVE (NEGATIVE); Nitrite Urine UA NEGATIVE (Negative); Occult Blood Urine UA NEGATIVE (Negative); Protein Urine UA NEGATIVE (Negative); Specific Gravity Urine UA <=1.005 (1.000-1.035); Urobilinogen Urine UA 0.2 E.U./dL (0.2)
[2019-08-31 16:30] LABS: Culture Indicated Urine Cult Not Indicated; WBC Urine 0-1/HPF (0-5/HPF)
[2019-08-31 16:32] LABS: Anisocytosis 1+; Dimorphic RBC PRESENT; Hypochromasia 1+; Microcytosis 1+
[2019-08-31 16:40] LABS: BUN Creatinine Ratio 16.3 (6-22); Blood Urea Nitrogen 13 mg/dL (9-20); Calcium 9.4 mg/dL (8.4-10.2); Carbon Dioxide 29 mmol/L (22-32); Chloride 97 mmol/L (98-107); Estimated Glomerular Filt Rate > 60.0 mL/min (>60); Glucose 177 mg/dL (80-110); HEMOLYSIS 21 (0-50); Potassium 3.7 mmol/L (3.4-5.1); Sodium 135 mmol/L (137-145)
[2019-08-31 16:52] LABS: Troponin I < 0.012 ng/mL (0.01-0.034)
[2019-08-31 17:03] VITALS: BP 130/75; PULSE 72; RESP 17; O2SAT 96
--- NOTE | 2019-08-31 17:03 | ED.DIZZY ---
HPI - Dizziness General Chief Complaint: Dizziness Stated Complaint: anxious,SOB, worried about his heart, irregular HR Time Seen by Provider: 08/31/19 17:03 Source: patient, family and old records reviewed Mode of arrival: Ambulatory Limitations: no limitations History of Present Illness HPI Narrative: This is a 78-year-old male who comes to the emergency department with complaint of a feeling like surge through his body he states it doesn't feel warm like flush states this happened after breakfast this morning. About 930 in the morning he states he felt little short of breath felt a little bit dizzy but did had any syncope or presyncope. He states his heartbeat felt normal at time had 1 other 2nd episode that occurred. Later in the morning. He states that he doesn't really have any chest pain or pressure. He does not feel short of breath this time. Has had several of these episodes in the past he has also had multiple episodes in the past where he had skipped beats and felt like aflutter of 4 5 beats afterwards. He had recently had a ZIO patch which he is supposed review with Dr. kincaid on Tuesday. He states that he was told he had some fast beat. By his report which he brought with him it looks like he had very short episodes of 4-5 beats of SVT in the 103-150 range at the most. Patient states he used to have a lot of these episodes and after he received iron infusions after GI bleed he has felt better. He denies any nausea, no vomiting no issues with weight changes. No abdominal pain. No recent issues with bowel movements or urination. He notices swelling in his lower extremities and evening and states it might be a little bit more this week but he states it resolves overnight. He does have a history of GI bleed after having and ileum that ulcerated and in deception, he had small bowel resection, then developed a bleed after taking aspirin regularly for about a week received blood transfusion had a scope which they did not find the source but suspected it may be at his surgical site. He takes cholestyramine and Prilosec. Patient states he does not smoke, he drinks 2-3 glasses of wine nightly, no illicit. Dr. bullard is his primary care. Related Data Home Medications Medication Instructions Recorded Confirmed Prilosec OTC 10 mg PO DAILY 09/06/18 09/29/18 latanoprost 1 drp OPHTHALMIC (EYE) BEDTIME 09/06/18 08/31/19 cholestyramine (with sugar) 4 g PO DAILY 04/10/19 04/10/19 Previous Rx's Medication Instructions Recorded acetaminophen 650 mg PO Q6HR #20 tab 04/12/19 Allergies Allergy/AdvReac Type Severity Reaction Status Date / Time No Known Drug Allergies Allergy Verified 08/31/19 15:50 Review of Systems Review of Systems ROS Unobtainable: All systems reviewed & are unremarkable except as noted in HPI and below Patient History Medical History BPH (benign prostatic hyperplasia) (Acute) Non Hodgkin's lymphoma (Acute) Small bowel obstruction (Acute) Surgical History History of bowel resection (Acute) Port catheter in place Port catheter in place Status post hernia repair Social History household members: spouse Smoking Status: Never smoker alcohol intake: current Smoking Status: Never smoker alcohol intake frequency: 0-2 drinks per day Substance Use Type: does not use Exam Narrative Exam Narrative: GENERAL: Alert and oriented x three, well-nourished, well-appearing elderly male in mild distress. HEENT: Head normocephalic, atraumatic, EOMI, pupils reactive, face symmetric, moist mucous membranes NECK: Supple, full range of motion CARDIOVASCULAR: Regular rate and rhythm without murmurs, rubs or gallops. No JVD no edema bilateral lower extremities. RESPIRATORY: Breath sounds equal bilaterally, no wheezes rales or rhonchi. No tachypnea, no accessory muscle use. ABDOMEN: Soft, nontender. Normoactive bowel sounds all 4 quadrants. No guarding or rebound, rigidity, no mass : No CVA tenderness EXTREMITIES: Normal range of motion. Neurovascularly intact NEUROLOGICAL: Cranial nerves II through XII grossly intact. Moving all extremities SKIN: Warm, dry, no petechiae, no rashes or lesions. Initial Vital Signs Initial Vital Signs: Vital Signs Temperature 97.3 F L 08/31/19 15:50 Pulse Rate 84 08/31/19 15:50 Respiratory Rate 24 08/31/19 15:50 Blood Pressure 158/80 H 08/31/19 15:50 Pulse Oximetry 97 08/31/19 15:50 Scores HEART Score Heart Score history: Slightly Suspicious Heart Score EKG: Non-Specific repolarization disturbance Heart Score Age: > or = 65 years old Heart Score risk factors: No known risk factors Heart Score troponin: < or = to normal limit Heart Score Total: 3 Course Orders Ordered: ED Orders 08/31/19 15:58 XR chest 1V Stat EKG-12 Lead Stat 08/31/19 15:59 Basic Metabolic Panel Stat Complete Blood Count AUTO DIFF Stat Troponin I Stat Urinalysis and Microscopic Stat Discontinued Medications Sodium Chloride (Normal Saline 0.9%) 1,000 mls @ 150 mls/hr IV CONT DANIEL Last Admin: 08/31/19 17:36 Dose: Not Given Documented by: LALITO Vital Signs Vital signs: Vital Signs - 8 hr 08/31/19 15:50 08/31/19 17:03 08/31/19 17:35 Temperature 97.3 F L Pulse Rate 84 72 68 Respiratory Rate 24 17 21 Blood Pressure 158/80 H Blood Pressure [Right Arm] 130/75 147/79 H Pulse Oximetry 97 96 96 MDM - Dizziness Lab Data Attestation: I reviewed the patient's lab results. Result diagrams: 08/31/19 15:59 08/31/19 15:59 Labs: Lab Results 08/31/19 08/31/19 08/31/19 Range/Units 15:59 15:59 15:59 WBC 5.3 (4.5-11.0) X10^3/uL RBC 4.77 (4.5-5.9) X10^6/uL Hgb 13.8 (13.5-17.5) g/dL Hct 41.3 (41-53) % MCV 86.5 (80-100) fL MCH 28.9 (26-34) PG MCHC 33.4 (30-36) % RDW 21.8 H (11.6-14.8) % Plt Count 215 (150-400) X10^3/uL Neut % (Auto) 60.7 (50-75) % Lymph % (Auto) 25.8 (25-40) % [place] % (Auto) 7.6 (3-14) % Eos % (Auto) 5.0 H (2-4) % Baso % (Auto) 0.9 (0-2) % Neut # (Auto) 3200 (7478-5621) /uL Lymph # (Auto) 1400 (1083-4165) /uL [place] # (Auto) 400 (0-900) /uL Eos # (Auto) 300 (0-450) /uL Baso # (Auto) 0 (0-100) /uL RBC Morphology See below Dimorphic RBCs Present Hypochromasia 1+ H Anisocytosis 1+ H Microcytosis 1+ H Sodium 135 L (137-145) mmol/L Potassium 3.7 (3.4-5.1) mmol/L Chloride 97 L (98-107) mmol/L Carbon Dioxide 29 (22-32) mmol/L BUN 13 (9-20) mg/dL Creatinine 0.80 (0.66-1.25) mg/dL Estimated GFR > 60.0 (>60) mL/min BUN/Creatinine Ratio 16.3 (6-22) Glucose 177 H (80-110) mg/dL Calcium 9.4 (8.4-10.2) mg/dL Troponin I < 0.012 (0.01-0.034) ng/mL Urine Color Yellow Urine Appearance Clear Urine pH 6.0 (4.5-8.0) Ur Specific [place] <=1.005 (1.000-1.035) Urine Protein Negative (Negative) Urine Glucose (UA) Trace H (Negative) g/dL Urine Ketones Negative (NEGATIVE) Urine Occult Blood Negative (Negative) Urine Nitrate Negative (Negative) Urine Bilirubin Negative (NEGATIVE) Urine Urobilinogen 0.2 (0.2) E.U./dL Ur Leukocyte Esterase Negative (NEGATIVE) Urine RBC None seen (0-5/HPF) Urine WBC 0-1/hpf (0-5/HPF) Urine Bacteria None seen (None) Ur Culture Indicated? Cult not indicated Imaging Data Chest x-ray: Radiologist's Impression: [address] [id number] XRay Report Signed Patient: Candida Conn#: [id number] : 9Acct:[id number] Age/Sex: 78 / MDate of Service: 08/31/19 Loc: ED Accession Number: [id number] Procedure: XR chest 1V Ordering Provider: Reyna Gonzalez D.O. PROCEDURE: XR CHEST 1V INDICATIONS: Dizzy TECHNIQUE: One view of the chest was acquired. COMPARISON: [facility], CT, CHEST/ABD/PEL WITH CONTRAST, 10/14/2015, 4:35. [facility], CR, XR CHEST 1V, 04/10/2019, 8:15. [facility], CR, XR CHEST 2V, 08/03/2019, 10:23. FINDINGS: Surgical changes and devices: Small metallic densities are evident overlying the right upper quadrant, similar to the prior study. Lungs and pleura: Subtle increased density is seen within the right lung apex, which is similar to the previous exams. No other areas of consolidation or increased density are appreciated. No effusion or pneumothorax is appreciated. Mediastinum: Mediastinal contours appear normal. Heart size is normal. Bones and chest wall: No suspicious bony lesions. Overlying soft tissues appear unremarkable. IMPRESSION: Subtle increased density within the right upper lobe has been present on multiple previous exams and is felt to represent a chronic finding. However, superimposed pneumonia is difficult to exclude. Dictated by: Dorian Lee M.D. on 08/31/2019 at 15:36 Approved by: Dorian Lee M.D. on 08/31/2019 at 15:40 ECG Data Attestation: I personally reviewed and interpreted this ECG as follows: Prior ECG tracings: available for review Interpretation: Sinus rhythm rate of 76 P are 108 QRS of 161 and QTC of 460 patient has left axis deviation, right bundle-branch block. Patient has a prior EKG from 03/27/2019 which appears similar MDM Narrative Medical decision making narrative: Discussed with patient lab work shows negative troponin, sodium is 135 with chloride of 97, potassium 3.7 with otherwise normal creatinine. Glucose is 177. Calcium is 9.4. Patient's hemoglobin is appropriate at 13.8 and appears improved from priors, patient's platelets are 215 with a normal white count. Patient's urine sample shows trace no other acute changes. Patient came with report from his cardiac monitoring at home. Looks like he does occasionally have several extra a beats that may be supraventricular in nature but these are 4 5 beats at the most. Does not appear that he has prolonged episodes. Patient's EKG appears similar to prior. He has chest x-ray with a little bit of haziness in the upper chest but does not appear to be changed from prior. Patient has not any infectious symptoms recently. 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 We discussed signs and symptoms and reasons to return. Patient is ambulating in department without issue. Discharge Plan Departure Patient Disposition: Home Clinical Impression: Dizziness Discharge Date/Time: 08/31/19 17:47 Instructions: DI for Dizziness-Nonvertigo Activity Restrictions/Additional Instructions: Follow-up on Tuesday with Dr. Aquino at your appointment. Continue home medications as prescribed. Return to the emergency department for fevers greater 100.4 F, new or worsening symptoms, new lightheadedness, passing out, new chest, shortness of breath, diaphoresis, persistent vomiting, new swelling in her extremities or other new or concerning symptoms. Prescriptions: No Action cholestyramine (with sugar) 4 gram powder in packet 4 g PO DAILY RF: 0 acetaminophen 325 mg Tablet 650 mg PO Q6HR Qty: 20 RF: 0 latanoprost 0.005 % drops 1 drp ophthalmic (eye) BEDTIME RF: 0 Prilosec OTC 20 mg Tablet,Delayed Release (Dr/Ec) 10 mg PO DAILY RF: 0 Referrals: Zahra Sutton MD [Primary Care Provider] -
[2019-08-31 17:35] VITALS: BP 147/79; PULSE 68; RESP 21; O2SAT 96
== END 2019-08-31 17:47 | disposition home or self-care (01) ==
PROVIDERS: Emergency Provider Emergency Medicine; Family Provider Specialist; PCP Student in an Organized Health Care Education/Training Program
DX: R06.02 Shortness of breath (principal); R42 Dizziness and giddiness; I45.10 Unspecified right bundle-branch block
CPT/HCPCS: 36415; 71045; 80048; 81001; 84484; 85025; 93005; 99284; 99285

== ENCOUNTER → 2020-05-02 13:47 | Outpatient (CLI) | payer MEDICARE, SELFPAY ==
[2019-04-10 11:00] VITALS: BMI 22.6
--- NOTE | 2020-05-02 | DI.CT.S_ITS ---
PROCEDURE: CT CHEST W CON INDICATIONS: Pleurodynia TECHNIQUE: After the administration of intravenous contrast, 5 mm thick sections acquired from the pulmonary apices to the posterior costophrenic angles. 1 mm axial lung, 5 mm thick coronal and sagittal reformats and 7 mm axial MIP were acquired. For radiation dose reduction, the following was used: automated exposure control, adjustment of mA and/or kV according to patient size. COMPARISON: [facility], CT, CT ABDOMEN PELVIS W CON, 04/10/2019, 5:56. FINDINGS: Image quality: Excellent. Lungs and pleura: There is peripheral subpleural irregularity and reticulation and in upper and lower lobe predominance. There are early honeycomb changes seen in the posterior costophrenic angles bilaterally. There is architectural distortion with slight traction of airways in the lower lobes, and early traction bronchiectasis seen anteriorly and medially in the left upper lobe, and posteromedially in the right lower lobe superior segment. There are no significant ground-glass opacities, airspace consolidations, dominant cysts, nodules, or masses. No pleural effusions or suspicious pleural calcifications. Mediastinum: Heart size is normal. Mild coronary artery calcification. No pericardial effusion. No mediastinal or hilar adenopathy by size criteria. Thoracic aorta is normal size. There is slight prominence of the pulmonary arteries. Esophagus is normal in caliber. No hiatal hernia. Bones and chest wall: No suspicious bony lesions. No vertebral body compression fractures. No axillary or supraclavicular adenopathy by size criteria. Thyroid gland is normal . Abdomen: Visualized upper abdomen demonstrates mild diffuse hepatic hypodensity. There is an exophytic cyst arising from the upper pole of the right kidney and a few coarse calcifications scattered in the spleen consistent with granulomas. IMPRESSION: 1. Pulmonary findings most consistent with a usual interstitial pneumonia pattern. Etiologies include idiopathic pulmonary fibrosis, drug toxicity, collagen vascular disease, and less likely asbestosis in this there has been exposure. 2. No adenopathy to suggest recurrent lymphomatous disease. 3. Mild hepatic steatosis. Dictated by: Kemi Davalos M.D. on 05/02/2020 at 15:35 Approved by: Kemi Davalos M.D. on 05/02/2020 at 15:50
== END ==
PROVIDERS: Family Provider Specialist; PCP Student in an Organized Health Care Education/Training Program; Referring Provider Student in an Organized Health Care Education/Training Program; Visit Provider Student in an Organized Health Care Education/Training Program
DX: R07.81 Pleurodynia (principal); I25.10 Atherosclerotic heart disease of native coronary artery without angina pectoris; K76.0 Fatty (change of) liver, not elsewhere classified
CPT/HCPCS: 71260; Q9967

== ENCOUNTER → 2023-08-10 12:38 | Outpatient (CLI) | payer MEDICARE, SELFPAY ==
[2019-04-10 11:00] VITALS: BMI 22.6
--- NOTE | 2023-08-10 13:00 | DI.CT.S_ITS ---
PROCEDURE: CT CHEST HIGH RESOLUTION INDICATIONS: Shortness of breath TECHNIQUE: Noncontrast 1.0 and 5.0 mm thick contiguous axial sections from the pulmonary apex to the posterior costophrenic angles, with 7 mm thick coronal and sagittal MIP reformats. 1 mm thick dynamic expiratory images acquired through the upper, mid, and lower lungs. 1.0 mm thick axial sections acquired from the phu to the posterior costophrenic angles in the prone end-inspiration position. For radiation dose reduction, the following was used: automated exposure control, adjustment of mA and/or kV according to patient size. COMPARISON: [facility], CT, CT HIGH RESOLUTION CHEST, 03/13/2021, 11:51. [facility], CT, CT HIGH RESOLUTION CHEST, 09/20/2022, 8:12. FINDINGS: Image quality: Excellent. Lungs: Honeycombing, moderate to severe, slightly worsened compared to 09/20/2022. No acute airspace opacity. No air trapping appreciated. No mass or significant pulmonary nodules. Central airways are clear. Mild bronchiectasis. Pleura: No pleural effusions or pneumothorax. Mediastinum: Heart size is prominent. Three-vessel coronary artery calcifications. No pericardial effusion. Right pulmonary artery measures 3.3 cm. Esophagus is normal in caliber. Bones and chest wall: No suspicious bony lesions. No vertebral body compression fractures. Abdomen: Visualized upper abdominal solid organs and bowel loops appear normal. 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 Slightly worsened compared to August 2022. Prominent right pulmonary artery. This could be seen in the setting of pulmonary arterial hypertension. No acute airspace opacity. No significant pulmonary nodules seen. Dictated by: Davey Mi M.D. on 08/10/2023 at 17:45 Approved by: Davey Mi M.D. on 08/10/2023 at 17:52
== END ==
PROVIDERS: Family Provider Specialist; PCP Student in an Organized Health Care Education/Training Program; Referring Provider Internal Medicine Critical Care Medicine; Visit Provider Internal Medicine Critical Care Medicine
DX: J84.89 Other specified interstitial pulmonary diseases (principal); J96.10 Chronic respiratory failure, unspecified whether with hypoxia or hypercapnia
CPT/HCPCS: 71250

== ENCOUNTER → 2023-09-13 15:53 | Outpatient (ROUT) | payer MEDICARE, SELFPAY ==
[2019-04-10 11:00] VITALS: BMI 22.6
[2023-09-13 17:09] LABS: Influenza A - CEPHEID Flu A NEGATIVE (NEGATIVE); Influenza B - CEPHEID Flu B NEGATIVE (NEGATIVE); Respiratory Syncytial Virus Negative (Negative)
[2023-09-13 17:11] LABS: COVID-19 CEPHEID 4-PLEX PCR Negative (Negative)
== END ==
PROVIDERS: Family Provider Specialist; PCP Student in an Organized Health Care Education/Training Program; Visit Provider Registered Nurse
DX: R05.1 Acute cough (principal)
CPT/HCPCS: 0241U

== ENCOUNTER 2023-12-31 07:33 | Inpatient (IN) | payer MEDICARE, SELFPAY ==
[2019-04-10 11:00] VITALS: BMI 22.6
[2023-12-31] VITALS (9 sets, daily range): BP systolic 124–157; BP diastolic 67–87; PULSE 67–79; RESP 16–28; TEMP 36.2–36.7; O2SAT 92–97; BMI 20.6; BMI 20.9
--- NOTE | 2023-12-31 07:49 | ED.ABDPAIN ---
HPI - Abdominal Pain General Chief Complaint: Abdominal Pain Stated Complaint: STOMACH PAINS Time Seen by Provider: 12/31/23 07:42 Source: patient Mode of arrival: Ambulatory History of Present Illness HPI narrative: Patient is a 83-year-old male history of non-Hodgkin's lymphoma BPH previous small-bowel obstruction presenting today with abdominal pain. He had a previous resection of his ileum secondary to intussusception with prior small-bowel obstruction states that he started having abdominal pain last night around 10:00 p.m.. He has not passing gas but belching frequently. Not actively nauseous or vomiting. No real chest pain or shortness of breath. He denies any fever or chills. Related Data Home Medications Medication Instructions Recorded Confirmed latanoprost 0.005 % eye drops 1 drp ophthalmic (eye) BEDTIME 09/06/18 12/31/23 nintedanib 100 mg capsule (Ofev) 100 mg PO Q12H 04/13/23 12/31/23 cholestyramine (with sugar) 4 gram 4 g PO DAILY 04/19/23 12/31/23 powder for susp in a packet omeprazole magnesium 20 mg 20 mg PO BID 04/19/23 12/31/23 tablet,delayed release (Prilosec OTC) acetaminophen 325 mg tablet 650 mg PO QPM 12/31/23 12/31/23 diltiazem HCl 120 mg 120 mg PO DAILY 12/31/23 12/31/23 capsule,extended release 24 hr Allergies Allergy/AdvReac Type Severity Reaction Status Date / Time No Known Drug Allergies Allergy Verified 09/01/23 11:41 Patient History Medical History (Updated 12/31/23 @ 11:22 by Dane Collins MD) BPH (benign prostatic hyperplasia) Non Hodgkin's lymphoma Small bowel obstruction Surgical History History of bowel resection Port catheter in place Port catheter in place Status post hernia repair Social History household members: spouse Smoking Status: Never smoker alcohol intake: current Smoking Status: Never smoker alcohol intake frequency: 0-2 drinks per day Substance Use Type: does not use Exam Initial Vital Signs Initial Vital Signs: Vital Signs Temperature 97.8 F 12/31/23 07:36 Pulse Rate 69 12/31/23 07:36 Respiratory Rate 16 12/31/23 07:36 Blood Pressure 157/81 H 12/31/23 07:36 Pulse Oximetry 93 12/31/23 07:36 Oxygen Delivery Method Room Air 12/31/23 07:36 GENERAL: Alert 83-year-old male appears uncomfortable HEENT: Head atraumatic,EOMI, pupils reactive, face symmetric, moist mucous membranes CARDIOVASCULAR: Regular rate and rhythm without murmurs, rubs or gallops. RESPIRATORY: Breath sounds equal bilaterally, no wheezes rales or rhonchi. ABDOMEN: Soft, increased bowel sounds, no significant distention scar noted umbilical to pelvis EXTREMITIES: Normal range of motion, no clubbing or edema. Neurovascularly intact NEUROLOGICAL: Alert and oriented x4.Normal gait and speech. SKIN: Warm, dry, no laceration, no petechiae, no rashes or lesions. Course Orders Ordered: ED Orders 12/31/23 07:45 Complete Blood Count AUTO DIFF Stat Comprehensive Metabolic Panel Stat Lipase Stat Magnesium Stat PTT Partial Thromboplastin Shorty Stat Prothrombin Time INR Stat Troponin & CK Cardiac Panel Stat 12/31/23 07:48 XR chest 1V Stat EKG-12 Lead Stat 12/31/23 08:00 CT abdomen pelvis w con Stat Acetaminophen (Acetaminophen 325 Mg Tablet) 650 mg PO Q6H PRN PRN Reason: Fever/Mild Pain (1-3) Sodium Chloride (Normal Saline 0.9%) 1,000 mls @ 125 mls/hr IV CONT DANIEL Last Admin: 12/31/23 10:55 Dose: 125 mls/hr Documented By: Infusion: 12/31/23 10:02 Dose: Infused Documented By: Admin: 12/31/23 08:05 Dose: 125 mls/hr Documented By: PERLITA Ketorolac Tromethamine (Ketorolac 30 Mg/Ml Vial) 15 mg IV Q8H PRN PRN Reason: Pain scale 1-3 Stop: 01/05/24 11:31 Last Admin: 12/31/23 12:05 Dose: 15 mg Documented By: DAKSHA Morphine Sulfate (Morphine 2 Mg/Ml Inj) 2 mg IV Q2HR PRN PRN Reason: Pain, Moderate (4-6) Last Admin: 12/31/23 10:48 Dose: 2 mg Documented By: DAKSHA Ondansetron HCl (Ondansetron 4 Mg/2 Ml Inj) 4 mg IV Q4HR PRN PRN Reason: Nausea And Vomiting Oxycodone HCl (Oxycodone 5 Mg/5 Ml Oral Solution) 5 mg PO Q4HR PRN PRN Reason: Pain, Moderate (4-6) Discontinued Medications Morphine Sulfate (Morphine 2 Mg/Ml Inj) 2 mg IV NOW ONE Stop: 12/31/23 08:01 Last Admin: 12/31/23 08:11 Dose: 2 mg Documented By: PERLITA Morphine Sulfate (Morphine 4 Mg/Ml Inj) 2 mg IV NOW ONE Stop: 12/31/23 10:08 Last Admin: 12/31/23 11:06 Dose: Not Given Documented By: DAKSHA Ondansetron HCl (Ondansetron 4 Mg/2 Ml Inj) 4 mg IV NOW ONE Stop: 12/31/23 08:01 Last Admin: 12/31/23 08:11 Dose: 4 mg Documented By: PERLITA Vital Signs Vital signs: Vital Signs - 8 hr 12/31/23 08:30 12/31/23 09:00 Pulse Rate 79 73 Respiratory Rate 17 17 Blood Pressure 137/67 Pulse Oximetry 97 94 MDM - Abdominal Pain Lab Data 12/31/23 07:45 12/31/23 07:45 Labs: Lab Results 12/31/23 Range/Units 07:45 WBC 8.7 (4.5-11.0) X10^3/uL RBC 4.84 (4.5-5.9) X10^6/uL Hgb 15.4 (13.5-17.5) g/dL Hct 45.5 (41-53) % MCV 94.0 (80-100) fL MCH 31.7 (26-34) PG MCHC 33.8 (30-36) % RDW 14.5 (11.6-14.8) % Plt Count 279 (150-400) X10^3/uL Neut % (Auto) 72.2 (50-75) % Lymph % (Auto) 16.8 L (25-40) % [place] % (Auto) 7.8 (3-14) % Eos % (Auto) 2.5 (2-4) % Baso % (Auto) 0.7 (0-2) % Neut # (Auto) 6300 (1296-7266) /uL Lymph # (Auto) 1500 (6527-9358) /uL [place] # (Auto) 700 (0-900) /uL Eos # (Auto) 200 (0-450) /uL Baso # (Auto) 100 (0-100) /uL PT 11.6 (9.4-12.5) SECONDS INR 1.0 (0.9-1.3) APTT 40 H (25.1-36.5) SECONDS Sodium 135 L (137-145) mmol/L Potassium 4.2 (3.4-5.1) mmol/L Chloride 99 (98-107) mmol/L Carbon Dioxide 30 (22-32) mmol/L BUN 11 (9-20) mg/dL Creatinine 0.78 (0.66-1.25) mg/dL Estimated GFR > 60 (>60) mL/min BUN/Creatinine Ratio 14.1 (6-22) Glucose 123 H (80-110) mg/dL Calcium 9.3 (8.4-10.2) mg/dL Magnesium 1.7 (1.6-2.3) mg/dL Total Bilirubin 0.9 (0.2-1.3) mg/dL AST 32 (17-59) IU/L ALT 19 (<50) IU/L Alkaline Phosphatase 56 (38-126) U/L Total Creatine Kinase 73 (55-170) U/L Troponin I 0.012 (0.01-0.034) ng/mL Total Protein 8.0 (6.3-8.2) g/dL Albumin 4.5 (3.5-5.0) g/dL Globulin 3.5 (1.7-4.1) g/dL Albumin/Globulin Ratio 1.3 (1.0-2.8) Lipase 26 (23-300) U/L Imaging Data CT scan - abdomen/pelvis: Radiologist's Impression: PROCEDURE: CT ABDOMEN PELVIS W CON INDICATIONS: Abdominal pain. TECHNIQUE: After the administration of intravenous contrast, axial sections acquired from the lung bases to the pubic symphysis. Coronal and sagittal reformats were performed. For radiation dose reduction, the following was used: automated exposure control, adjustment of mA and/or kV according to patient size. COMPARISON: [facility], CR, XR CHEST 1V, 12/31/2023, 7:48. [facility], CT, CT ABDOMEN PELVIS W CON, 04/10/2019, 5:56. FINDINGS: Image quality: Diagnostic. Lower Chest: Bilateral interstitial thickening and pulmonary fibrosis at lung bases. Heart size is within normal limits. There is moderate coronary calcification. Small hiatal hernia. Mild concentric thickening at the gastroesophageal junction. ABDOMEN: Liver: No solid mass. Gallbladder: No radiopaque gallstones or wall thickening. Biliary ducts: No biliary dilation. Pancreas: No ductal dilation. Spleen: Size is within normal limits. Adrenal Glands: No adrenal nodules. Kidneys and Ureters: No hydronephrosis. No solid mass. There is a 5.6 cm simple cyst in right kidney. No complex renal cystic lesion which requires follow up. Stomach and Bowel: Small bowel loops are mildly distended with multiple air-fluid levels measuring up to 3.4 cm in diameter. There is transitional point in the right lower quadrant involving the distal ileum (series 2 image 77; series 3 image 29). The distal ileum appears mildly thickened. Surgical clips in cecum. Normal colonic caliber, without significant wall thickening. Diverticulosis without diverticulitis. Peritoneum: No abnormal intraperitoneal fluid. No free air. Ventral Wall: No significant ventral hernia. Abdominal Nodes: No retroperitoneal or mesenteric adenopathy by size criteria. Vessels: Aorta and inferior vena cava are normal in size. Moderate atherosclerosis. PELVIS: Pelvic Organs: Prostate is prominent and heterogeneous. Bladder: No bladder wall thickening, accounting for underdistention. Pelvic Nodes: No enlarged lymph nodes. Miscellaneous: No inguinal hernias are seen. Bones: No aggressive osseous abnormality. [id number] spondylitic changes in lumbar spine. IMPRESSION: 1. Distal small bowel obstruction. The distal ileum is mildly thickened. The finding may be secondary to inflammatory bowel disease or infection. Recommend clinical correlation. 2. Diverticulosis without diverticulitis. 3. Interstitial lung disease and pulmonary fibrosis. 4. Prostatomegaly and heterogeneous enhancement of prostate. Please correlate with PSA. Chest x-ray: Radiologist's Impression: PROCEDURE: XR CHEST 1V INDICATIONS: chest pain TECHNIQUE: One view of the chest was acquired. COMPARISON: [facility], CT, CT HIGH RESOLUTION CHEST, 09/20/2022, 8:12. [facility], CT, CT HIGH RESOLUTION CHEST, 10/29/2021, 14:53. CT, CT CHEST HIGH RESOLUTION, 08/10/2023, 12:57. [facility], CR, XR CHEST 1V, 08/31/2019, 16:14. FINDINGS: Surgical changes and devices: None. Lungs and pleura: Bilateral interstitial infiltrates and pulmonary fibrosis. No pleural effusions or pneumothorax. Mediastinum: Mediastinal contours appear normal. Heart size is normal. Bones and chest wall: No suspicious bony lesions. Overlying soft tissues appear unremarkable. IMPRESSION: 1. Chronic interstitial and pulmonary fibrosis. No focal consolidation. Dictated by: Eliceo Woodruff M.D. on 12/31/2023 at 8:04 ECG Data Attestation: I personally reviewed and interpreted this ECG as follows: Prior ECG tracings: available for review Interpretation: Normal sinus rhythm rate 70 TX interval 186 QRS [address] MDM Narrative Medical decision making narrative: MDM CC: Abdominal pain Complicating co-morbidities: Previous intussusception small-bowel obstruction Medical records reviewed: Yes Differential considered: Bowel obstruction or diverticulitis, pancreatitis Exam documented above, pertinent findings include: Hyperactive bowel sounds lower abdomen no significant distention scar noted Lab Test results independently reviewed as above. Pertinent findings: WBC 8.7, hemoglobin 15.4 hematocrit 45 point 5, platelets 279, sodium 135, potassium 4.2, carbon dioxide 30 BUN 11, creatinine 0.7, troponin negative lipase 26 Independently reviewed EKG as above-see above Imaging studies independently reviewed: CT scan does show distal small-bowel obstruction with a chest x-ray that shows chronic interstitial pulmonary fibrosis Consultations: 08:51 Dr. Healy admit to medicine Dr. Barbosa accepts patient. In ED to see and evaluate. Treatments: Morphine IV fluids Re-evaluations: Pain is significantly better after morphine Discussion: Patient is a jay 83-year-old male with history of multiple bowel surgeries and prior small bowel obstruction presenting today with onset of abdominal pain and belching. On exam he is tender with hyperactive bowel sounds. CT confirms small bowel obstruction. Surgery is aware conservative measures at this time all Discharge Plan Departure Patient Disposition: Admitted as Observation Clinical Impression: Small bowel obstruction Admit Date/Time: 12/31/23 09:01 Admit Provider: Tete Noel
--- NOTE | 2023-12-31 08:00 | DI.CT.S_ITS ---
PROCEDURE: CT ABDOMEN PELVIS W CON INDICATIONS: Abdominal pain. TECHNIQUE: After the administration of intravenous contrast, axial sections acquired from the lung bases to the pubic symphysis. Coronal and sagittal reformats were performed. For radiation dose reduction, the following was used: automated exposure control, adjustment of mA and/or kV according to patient size. COMPARISON: [facility], CR, XR CHEST 1V, 12/31/2023, 7:48. [facility], CT, CT ABDOMEN PELVIS W CON, 04/10/2019, 5:56. FINDINGS: Image quality: Diagnostic. Lower Chest: Bilateral interstitial thickening and pulmonary fibrosis at lung bases. Heart size is within normal limits. There is moderate coronary calcification. Small hiatal hernia. Mild concentric thickening at the gastroesophageal junction. ABDOMEN: Liver: No solid mass. Gallbladder: No radiopaque gallstones or wall thickening. Biliary ducts: No biliary dilation. Pancreas: No ductal dilation. Spleen: Size is within normal limits. Adrenal Glands: No adrenal nodules. Kidneys and Ureters: No hydronephrosis. No solid mass. There is a 5.6 cm simple cyst in right kidney. No complex renal cystic lesion which requires follow up. Stomach and Bowel: Small bowel loops are mildly distended with multiple air-fluid levels measuring up to 3.4 cm in diameter. There is transitional point in the right lower quadrant involving the distal ileum (series 2 image 77; series 3 image 29). The distal ileum appears mildly thickened. Surgical clips in cecum. Normal colonic caliber, without significant wall thickening. Diverticulosis without diverticulitis. Peritoneum: No abnormal intraperitoneal fluid. No free air. Ventral Wall: No significant ventral hernia. Abdominal Nodes: No retroperitoneal or mesenteric adenopathy by size criteria. Vessels: Aorta and inferior vena cava are normal in size. Moderate atherosclerosis. PELVIS: Pelvic Organs: Prostate is prominent and heterogeneous. Bladder: No bladder wall thickening, accounting for underdistention. Pelvic Nodes: No enlarged lymph nodes. Miscellaneous: No inguinal hernias are seen. Bones: No aggressive osseous abnormality. [id number] spondylitic changes in lumbar spine. IMPRESSION: 1. Distal small bowel obstruction. The distal ileum is mildly thickened. The finding may be secondary to inflammatory bowel disease or infection. Recommend clinical correlation. 2. Diverticulosis without diverticulitis. 3. Interstitial lung disease and pulmonary fibrosis. 4. Prostatomegaly and heterogeneous enhancement of prostate. Please correlate with PSA. Dictated by: Eliceo Woodruff M.D. on 12/31/2023 at 8:26 Approved by: Eliceo Woodruff M.D. on 12/31/2023 at 8:33
[2023-12-31 08:01] LABS: Add Manual Diff / Slide Review NO; Basophils Absolute Auto 100 /uL (0-100); Basophils Percent Auto 0.7 % (0-2); Eosinophils Absolute Auto 200 /uL (0-450); Eosinophils Percent Auto 2.5 % (2-4); Hematocrit 45.5 % (41-53); Hemoglobin 15.4 g/dL (13.5-17.5); Lymphocytes Absolute Auto 1500 /uL (1100-4500); Lymphocytes Percent Auto 16.8 % (25-40); Mean Corpuscular HGB Conc 33.8 % (30-36); Mean Corpuscular Hemoglobin 31.7 PG (26-34); Monocytes Absolute Auto 700 /uL (0-900); Monocytes Percent Auto 7.8 % (3-14); Neutrophils Absolute Auto 6300 /uL (1500-7000); Neutrophils Percent Auto 72.2 % (50-75); Platelet Count 279 X10^3/uL (150-400); Prothrombin Time 11.6 SECONDS (9.4-12.5); Red Blood Cell Count 4.84 X10^6/uL (4.5-5.9); Red Cell Distribution Width 14.5 % (11.6-14.8); White Blood Cell Count 8.7 X10^3/uL (4.5-11.0)
[2023-12-31 08:04] LABS: PTT Partial Thromboplastin Tim 40 SECONDS (25.1-36.5)
[2023-12-31] MEDS: SODIUM CHLORIDE 0.9% 1,000 ML 125 ML IV ×3 (08:05→18:53)
[2023-12-31 08:07] LABS: Alanine Aminotransferase 19 IU/L (<50); Albumin 4.5 g/dL (3.5-5.0); Albumin Globulin Ratio 1.3 (1.0-2.8); Alkaline Phosphatase 56 U/L (38-126); Aspartate Aminotransferase 32 IU/L (17-59); BUN Creatinine Ratio 14.1 (6-22); Bilirubin Total 0.9 mg/dL (0.2-1.3); Blood Urea Nitrogen 11 mg/dL (9-20); Calcium 9.3 mg/dL (8.4-10.2); Carbon Dioxide 30 mmol/L (22-32); Chloride 99 mmol/L (98-107); Creatine Kinase 73 U/L (55-170); Estimated Glomerular Filt Rate > 60 mL/min (>60); Globulin 3.5 g/dL (1.7-4.1); Glucose 123 mg/dL (80-110); HEMOLYSIS 37 (0-50); Lipase 26 U/L (23-300); Magnesium 1.7 mg/dL (1.6-2.3); Potassium 4.2 mmol/L (3.4-5.1); Sodium 135 mmol/L (137-145)
[2023-12-31] MEDS: ONDANSETRON 4 MG/2 ML INJ IV (08:11)
[2023-12-31] MEDS: MORPHINE 2 MG/ML INJ IV ×2 (08:11→10:48)
[2023-12-31 08:18] LABS: Troponin I 0.012 ng/mL (0.01-0.034)
--- NOTE | 2023-12-31 08:58 | P.HP_ITS ---
History of Present Illness History of Present Illness Date Patient Seen: 12/31/23 Time Patient Seen: 09:05 Date of Onset of Symptoms: 12/30/23 Chief complaint: STOMACH PAINS Narrative: 83-year-old male with history of non-Hodgkin's lymphoma in remission, pulmonary fibrosis, previous intussusception, previous bowel obstruction with subsequent bowel resection presenting with abdominal pain. Pain started last night around 10:00 a.m.. The pain has been worsening since then leading him to come to the emergency department this morning. He also notes that he has had an increase in irritation in this time. Different prior to onset of abdominal pain he had 3 episodes of diarrhea, with most recent at 7:00 p.m. last night. He has not had any bowel movements at this time. No vomiting but he has had nausea. He has had a previous small bowel obstruction and this does feel similar. CT abdomen pelvis in the ER shows a distal small-bowel obstruction with mild thickening of the distal ileum. Labs overall reassuring, with no sign of leukocytosis or anemia. Electrolytes without significant derangement. Renal function and LFTs within normal limits. General surgery was consulted from the ER recommended admission and NPO status, no need for NG tube at this time. On chart review, general surgery visit with Dr. Gatica in Aug comments on a recent distal ileal resection and primary anastomosis following development of intussusception which at that time was healing well. Previous General surgery notes also comment on a prior bowel obstruction in 2016 secondary to a bezoar. [facility] Medical History (Updated 12/31/23 @ 11:02 by Tete Noel MD) BPH (benign prostatic hyperplasia) Non Hodgkin's lymphoma Small bowel obstruction Surgical History History of bowel resection Port catheter in place Port catheter in place Status post hernia repair Social History household members: spouse Smoking Status: Never smoker alcohol intake: current Meds Home Medications and Allergies Home Medications Medication Instructions Recorded Confirmed Type latanoprost 0.005 % eye drops 1 drp ophthalmic (eye) BEDTIME 09/06/18 09/01/23 History acetaminophen 325 mg tablet 650 mg (2 x 325 mg) PO Q6HR #20 04/12/19 09/01/23 Rx tabs nintedanib 100 mg capsule (Ofev) 100 mg PO Q12H 04/13/23 09/01/23 History cholestyramine (with sugar) 4 gram 4 g PO DAILY 04/19/23 09/01/23 History powder for susp in a packet omeprazole magnesium 20 mg 20 mg PO BID 04/19/23 09/01/23 History tablet,delayed release (Prilosec OTC) Allergies Allergy/AdvReac Type Severity Reaction Status Date / Time No Known Drug Allergies Allergy Verified 09/01/23 11:41 Review of Systems Review of Systems Narrative: + Abd pain + nausea - Vomiting - Diarrhea - Heart burn - fevers - bloody stools Exam Vital Signs (past 8 hours): - 12/31/23 07:36 Temperature 97.8 F Pulse Rate 69 Respiratory Rate 16 Blood Pressure 157/81 H Pulse Oximetry 93 Oxygen Delivery Method Room Air Oxygen Delivery Method Room Air Narrative Exam Narrative: GEN: Elderly male lying in bed, no acute distress PSYCH: Good Judgment. AOx3. Normal memory, mood, and affect HEENT: -Head: NC/AT -Eyes: No discharge or redness CV: warm and well perfused, systolic ejection murmur heard best at left upper sternal border LUNGS: breathing comfortably on RA, clear to auscultation bilaterally ABD: Diffusely mildly tender, guarding slightly, mild distention, normal bowel sounds were SKIN: Warm, well perfused. No skin rashes or abnormal lesions MSK: Grossly normal movement of all extremities NEURO:No focal deficits Objective Labs 12/31/23 07:45 12/31/23 07:45 Labs: Laboratory Results - last 24 hr 12/31/23 07:45 WBC 8.7 RBC 4.84 Hgb 15.4 Hct 45.5 MCV 94.0 MCH 31.7 MCHC 33.8 RDW 14.5 Plt Count 279 Neut % (Auto) 72.2 Lymph % (Auto) 16.8 L [place] % (Auto) 7.8 Eos % (Auto) 2.5 Baso % (Auto) 0.7 Neut # (Auto) 6300 Lymph # (Auto) 1500 [place] # (Auto) 700 Eos # (Auto) 200 Baso # (Auto) 100 PT 11.6 INR 1.0 APTT 40 H Sodium 135 L Potassium 4.2 Chloride 99 Carbon Dioxide 30 BUN 11 Creatinine 0.78 Estimated GFR > 60 BUN/Creatinine Ratio 14.1 Glucose 123 H Calcium 9.3 Magnesium 1.7 Total Bilirubin 0.9 AST 32 ALT 19 Alkaline Phosphatase 56 Total Creatine Kinase 73 Troponin I 0.012 Total Protein 8.0 Albumin 4.5 Globulin 3.5 Albumin/Globulin Ratio 1.3 Lipase 26 Assessment & Plan Assessment and plan (1) Small bowel obstruction: Status: Acute (2) Progressive fibrosing interstitial lung disease: Status: Acute (3) Gastroesophageal reflux disease without esophagitis: Status: None (4) History of lymphoma: Status: None (5) Glaucoma: Qualifiers: Glaucoma type: unspecified Laterality: unspecified laterality Qualified Code(s): H40.9 - Unspecified glaucoma Status: None Plan 83-year-old man with history of previous SBO and prior intussusception presenting with abdominal pain and imaging consistent with recurrence of small- bowel obstruction. ## SBO: CT showing distal small-bowel obstruction. Currently no vomiting. Pain is well-controlled with 1 dose of IV morphine in the ER. During his last SBO, after Gastrografin obstruction did resolve spontaneously prior to any surgical procedure. Management discussed with surgery, as he is overall well- appearing, we will make NPO for now and continue to watch closely. If he begins vomiting, we will plan for NG tube placement for decompression and Gastrografin study in the a.m.. In the interim IV Zofran available for nausea, IV morphine available for pain -admit to observation -General surgery consult -NPO status -IV Zofran for nausea -IV morphine for pain -okay to trial Tylenol for pain but if not effective moved IV ## Hx of A. fib with RVR : History of AFib with RVR noted many years ago, managed with diltiazem for about a year then stopped. Had a few years without AFib before irregular rhythm returned. Has more recently restarted diltiazem but it does make him very tired. He prefers to not take this right now. No sign of irregular heart rate on exam today. It sounds as though he takes this regularly at home as well. Continue to trend cardiac exam and we will plan to restart with next dose tomorrow if patient tolerating p.o.. If AFib develops overnight, consider IV rate control ## Pulmonary fibrosis - continue home Ofev, pt requesting to hold today, will discuss again tomorrow if SBO not resolved at that time ##GERD: Controlled at home with omeprazole 20 mg b.i.d. - Pt requesting to not receive home omeprazole today -consider restarting omeprazole tomorrow if patient tolerating p.o. medications ## Glaucoma -continue home Latanoprost drops nightly ## history of non-Hodgkin's lymphoma, in remission DVT: [place] of 4 for reduced mobility and age, but due to potential need for surgery in the near future will use SCDs and no pharmacologic tx for now Code status: DNR
--- NOTE | 2023-12-31 11:19 | PM.CN ---
History of Present Illness Consult details Date Patient Seen: 12/31/23 Time Patient Seen: 11:19 Chief complaint: STOMACH PAINS Narrative: Yung is an 83-year-old man who presents with a small-bowel obstruction. He has had surgery for bowel obstructions before. In approximately 2015 he had a bezoar had a small-bowel resection involving a segment of his jejunum by Dr. Max. He also had a resection of his terminal ileum and cecum by Dr. Rosario in 2015. He was readmitted again in March of 2016 with a bowel obstruction which resolved after Gastrografin was administered through his NG tube. His CT scan today is very similar to the CT scan from March of 2016. He reports that he has had some nausea but no vomiting so far. His last bowel function was yesterday evening 7:00 p.m.. He had eaten several food items yesterday that he suspects could cause symptoms including polyp colon, coconut candies and some frozen tacos from [employer]. Meds Home Medications and Allergies Home Medications Medication Instructions Recorded Confirmed Type latanoprost 0.005 % eye drops 1 drp ophthalmic (eye) BEDTIME 09/06/18 09/01/23 History acetaminophen 325 mg tablet 650 mg (2 x 325 mg) PO Q6HR #20 04/12/19 09/01/23 Rx tabs nintedanib 100 mg capsule (Ofev) 100 mg PO Q12H 04/13/23 09/01/23 History cholestyramine (with sugar) 4 gram 4 g PO DAILY 04/19/23 09/01/23 History powder for susp in a packet omeprazole magnesium 20 mg 20 mg PO BID 04/19/23 09/01/23 History tablet,delayed release (Prilosec OTC) Allergies Allergy/AdvReac Type Severity Reaction Status Date / Time No Known Drug Allergies Allergy Verified 09/01/23 11:41 Exam Vital Signs (past 8 hours): - 12/31/23 07:36 12/31/23 07:56 12/31/23 08:00 Temperature 97.8 F Pulse Rate 69 67 69 Respiratory Rate 16 21 23 Blood Pressure 157/81 H 144/77 H Pulse Oximetry 93 94 95 Oxygen Delivery Method Room Air 12/31/23 08:30 12/31/23 09:00 12/31/23 09:30 Temperature Pulse Rate 79 73 77 Respiratory Rate 17 17 28 H Blood Pressure 137/67 Pulse Oximetry 97 94 95 Oxygen Delivery Method 12/31/23 10:56 Temperature Pulse Rate Respiratory Rate Blood Pressure Pulse Oximetry Oxygen Delivery Method Room Air Oxygen Delivery Method Room Air Narrative Exam Narrative: Abdomen is soft, moderately distended Midline surgical scars Objective Labs 12/31/23 07:45 12/31/23 07:45 Labs: Laboratory Results - last 24 hr 12/31/23 07:45 WBC 8.7 RBC 4.84 Hgb 15.4 Hct 45.5 MCV 94.0 MCH 31.7 MCHC 33.8 RDW 14.5 Plt Count 279 Neut % (Auto) 72.2 Lymph % (Auto) 16.8 L Sanders % (Auto) 7.8 Eos % (Auto) 2.5 Baso % (Auto) 0.7 Neut # (Auto) 6300 Lymph # (Auto) 1500 Sanders # (Auto) 700 Eos # (Auto) 200 Baso # (Auto) 100 PT 11.6 INR 1.0 APTT 40 H Sodium 135 L Potassium 4.2 Chloride 99 Carbon Dioxide 30 BUN 11 Creatinine 0.78 Estimated GFR > 60 BUN/Creatinine Ratio 14.1 Glucose 123 H Calcium 9.3 Magnesium 1.7 Total Bilirubin 0.9 AST 32 ALT 19 Alkaline Phosphatase 56 Total Creatine Kinase 73 Troponin I 0.012 Total Protein 8.0 Albumin 4.5 Globulin 3.5 Albumin/Globulin Ratio 1.3 Lipase 26 [facility] Medical History (Updated 12/31/23 @ 11:22 by Dane Collins MD) BPH (benign prostatic hyperplasia) Non Hodgkin's lymphoma Small bowel obstruction Surgical History History of bowel resection Port catheter in place Port catheter in place Status post hernia repair Social History household members: spouse Tobacco & Substance Use Smoking Status: Never smoker alcohol intake: current Assessment & Plan Assessment and plan (1) Bowel obstruction: Qualifiers: Intestinal obstruction type: other intestinal obstruction Intestinal obstruction extent: complete Qualified Code(s): K56.691 - Other complete intestinal obstruction Status: Acute Plan His current CT scan looks remarkably similar to his last CT scan in 2019 when he had resolution of his obstruction after Gastrografin. If he develops any increase in nausea or if he starts vomiting he should get an NG-tube. Once the NG tube has had some time to empty his stomach we could then administer Gastrografin. If he starts to pass flatus he could start a clear liquid diet.
[2023-12-31] MEDS: KETOROLAC 30 MG/ML VIAL 15 MG IV (12:05)
[2023-12-31] MEDS: ACETAMINOPHEN 325 MG TABLET 650 MG PO (17:24)
[2024-01-01] VITALS: BP 140/78; PULSE 80; RESP 17; TEMP 36.7; O2SAT 96
[2024-01-01] MEDS: ACETAMINOPHEN 325 MG TABLET 650 MG PO ×2 (00:25→10:36)
[2024-01-01] MEDS: SODIUM CHLORIDE 0.9% 1,000 ML 125 ML IV ×3 (03:09→22:22)
[2024-01-01 04:14] VITALS: BP 140/76; PULSE 74; RESP 16; TEMP 37; O2SAT 96
[2024-01-01 08:20] VITALS: BP 132/76; PULSE 64; RESP 18; TEMP 36.4; O2SAT 95
[2024-01-01 08:20] LABS: Alanine Aminotransferase 16 IU/L (<50); Albumin 3.8 g/dL (3.5-5.0); Albumin Globulin Ratio 1.2 (1.0-2.8); Alkaline Phosphatase 55 U/L (38-126); Aspartate Aminotransferase 27 IU/L (17-59); BUN Creatinine Ratio 10.8 (6-22); Bilirubin Total 1.4 mg/dL (0.2-1.3); Blood Urea Nitrogen 8 mg/dL (9-20); Calcium 8.3 mg/dL (8.4-10.2); Carbon Dioxide 30 mmol/L (22-32); Chloride 103 mmol/L (98-107); Estimated Glomerular Filt Rate > 60 mL/min (>60); Globulin 3.1 g/dL (1.7-4.1); Glucose 88 mg/dL (80-110); HEMOLYSIS < 15 (0-50); Potassium 3.7 mmol/L (3.4-5.1); Sodium 134 mmol/L (137-145); Total Protein 6.9 g/dL (6.3-8.2)
--- NOTE | 2024-01-01 09:05 | PM.PN.1 ---
Subjective Subjective Date Patient Seen: 01/01/24 Time Patient Seen: 09:06 Interval history: No nausea or vomiting. Has passed some gas today and last night. Exam Vital Signs (past 8 hours): - 01/01/24 04:14 01/01/24 08:20 Temperature 98.6 F 97.6 F Pulse Rate 74 64 Respiratory Rate 16 18 Blood Pressure 140/76 132/76 Pulse Oximetry 96 95 Oxygen Flow Rate 0 Oxygen Delivery Method Room Air Oxygen Flow Rate 0 Const General: No acute distress Resp Effort & Inspection: normal respiratory effort Objective Labs 12/31/23 07:45 01/01/24 08:02 Labs: Laboratory Results - last 24 hr 01/01/24 08:02 Sodium 134 L Potassium 3.7 Chloride 103 Carbon Dioxide 30 BUN 8 L Creatinine 0.74 Estimated GFR > 60 BUN/Creatinine Ratio 10.8 Glucose 88 Calcium 8.3 L Total Bilirubin 1.4 H AST 27 ALT 16 Alkaline Phosphatase 55 Total Protein 6.9 Albumin 3.8 Globulin 3.1 Albumin/Globulin Ratio 1.2 PFS Medical History (Updated 12/31/23 @ 11:22 by Dane Collins MD) BPH (benign prostatic hyperplasia) Non Hodgkin's lymphoma Small bowel obstruction Surgical History History of bowel resection Port catheter in place Port catheter in place Status post hernia repair Social History household members: spouse Smoking Status: Never smoker alcohol intake: current Assessment & Plan Assessment and plan (1) Small bowel obstruction: Status: Acute Plan Start clear liquid diet. Quality VTE Deep Vein Thrombosis/Pulmonary Embolism Present on Admission: No
--- NOTE | 2024-01-01 11:12 | PM.PN.1 ---
Subjective Subjective Date Patient Seen: 01/01/24 Time Patient Seen: 10:10 Interval history: 83-year-old male admitted for small-bowel obstruction. Overnight did start passing gas. Was seen by surgery this morning and cleared for clear liquids. He tried some coffee after this and now is feeling slightly more bloated and uncomfortable. He has been trying to stand and move around but has not done so in a little bit. No bowel movement yet. He does endorse a headache this morning, would like some Tylenol and an ice pack for this Exam Vital Signs (past 8 hours): - 01/01/24 04:14 01/01/24 08:20 Temperature 98.6 F 97.6 F Pulse Rate 74 64 Respiratory Rate 16 18 Blood Pressure 140/76 132/76 Pulse Oximetry 96 95 Oxygen Flow Rate 0 Oxygen Delivery Method Room Air Oxygen Flow Rate 0 Narrative Exam Narrative: GEN: Elderly male lying in bed, no acute distress PSYCH: Good Judgment. AOx3. Normal memory, mood, and affect HEENT: -Head: NC/AT -Eyes: No discharge or redness CV: warm and well perfused LUNGS: breathing comfortably on RA ABD: Diffusely mildly tender, guarding slightly, mild distention, normal bowel sounds SKIN: Warm, well perfused. No skin rashes or abnormal lesions MSK: Grossly normal movement of all extremities NEURO:No focal deficits Objective Labs 12/31/23 07:45 01/01/24 08:02 Labs: Laboratory Results - last 24 hr 01/01/24 08:02 Sodium 134 L Potassium 3.7 Chloride 103 Carbon Dioxide 30 BUN 8 L Creatinine 0.74 Estimated GFR > 60 BUN/Creatinine Ratio 10.8 Glucose 88 Calcium 8.3 L Total Bilirubin 1.4 H AST 27 ALT 16 Alkaline Phosphatase 55 Total Protein 6.9 Albumin 3.8 Globulin 3.1 Albumin/Globulin Ratio 1.2 [facility] Medical History (Updated 12/31/23 @ 11:22 by Dane Collins MD) BPH (benign prostatic hyperplasia) Non Hodgkin's lymphoma Small bowel obstruction Surgical History History of bowel resection Port catheter in place Port catheter in place Status post hernia repair Social History household members: spouse Smoking Status: Never smoker alcohol intake: current Assessment & Plan Assessment and plan (1) Progressive fibrosing interstitial lung disease: Status: Acute (2) Intussusception intestine: Status: Acute (3) Small bowel obstruction: Status: Acute (4) Crohn's disease of small intestine without complication: Status: None (5) Gastroesophageal reflux disease without esophagitis: Status: None (6) History of lymphoma: Status: None (7) Glaucoma: Qualifiers: Glaucoma type: unspecified Laterality: unspecified laterality Qualified Code(s): H40.9 - Unspecified glaucoma Status: None Plan 83-year-old man with history of previous SBO and prior intussusception presenting with abdominal pain and imaging consistent with recurrence of small-bowel obstruction. ## SBO: CT showing distal small-bowel obstruction. Currently no vomiting. Pain is well-controlled with 1 dose of IV morphine in the ER. During his last SBO, after Gastrografin obstruction did resolve spontaneously prior to any surgical procedure. Management discussed with surgery, as he is overall well-appearing, we will make NPO for now and continue to watch closely. If he begins vomiting, we will plan for NG tube placement for decompression and Gastrografin study in the a.m.. In the interim IV Zofran available for nausea, IV morphine available for pain -admit to observation -General surgery consult -clear liquid diet -IV Zofran for nausea -IV morphine for pain -okay to trial Tylenol for pain but if not effective moved IV ## Hx of A. fib with RVR : History of AFib with RVR noted many years ago, managed with diltiazem for about a year then stopped. Had a few years without AFib before irregular rhythm returned. Has more recently restarted diltiazem but it does make him very tired. He prefers to not take this right now. No sign of irregular heart rate on exam today. It sounds as though he takes this regularly at home as well. Continue to trend cardiac exam and we will plan to restart with next dose tomorrow if patient tolerating p.o.. If AFib develops overnight, consider IV rate control ## Pulmonary fibrosis - continue home Ofev, pt requesting to hold today, will discuss again tomorrow if SBO not resolved at that time ##GERD: Controlled at home with omeprazole 20 mg b.i.d. - Pt requesting to not receive home omeprazole today -consider restarting omeprazole tomorrow if patient tolerating p.o. medications ## Glaucoma -continue home Latanoprost drops nightly ## history of non-Hodgkin's lymphoma, in remission DVT: [place] of 4 for reduced mobility and age, but due to potential need for surgery in the near future will use SCDs and no pharmacologic tx for now Code status: DNR Quality VTE Deep Vein Thrombosis/Pulmonary Embolism Present on Admission: No
[2024-01-01 13:00] VITALS: BP 134/82; PULSE 65; RESP 18; TEMP 36.3; O2SAT 98
--- NOTE | 2024-01-01 13:27 | PC.NURSE ---
Addendum entered by Shu Jones R.N. 01/01/24 19:22: Patient had been holding onto his NG tube after advanced and it slipped from stomach area, got order for xray for proper placement of ng tube after advancing it 5cm, patient is denying acid reflux, and he immediately had 800cc of output. Resting comfortably. Addendum entered by Shu Jones R.N. 01/01/24 17:52: Patient bumped his NG tube when standing up for a bed pad change. Patient was anxious and worried about this. This fios line installer NG tube back in and also listened for placement in the stomach with air, girggling heard. Patient now has 500cc of brownish colored bile in collection chamber. Protonix also ordered for patient and will be given her soon iv. He had an xray to check placement originally. Addendum entered by Shu Jones R.N. 01/01/24 15:27: Patient now has an NG tube that is placed to LIS, he has had 400cc of bile colored liquid in canister out. Chest xray obtained for placement of tube. He tolerated this well and states that he does feel better. Original Note: Patient is up in room without difficulty. He is tolerating his ivf and clear liquids. Will give patient a suppository shortly as he requested. Dr. Rosario okayed this per telephone order. Patients bt are active x4, he denies nausea.
--- NOTE | 2024-01-01 13:46 | CM.DANOTE ---
Patient is an 83 yo male who was admitted INPT status on 12/31/23 for SBO. Pt has MCR and [employer] for insurance and his PCP is at [facility]. EMR was reviewed. Per MD, pt with lymphoma in remission and hx of SBO with bowel resection in 2019 and admitted for SBO. Per Surgeon, recommendation for conservative tx and IV-Abx and no NGT at this time and some bowel tones so pt to start clear liquids today to see how he can tolerate. SW met bedside with pt and explained role and pt very A&O x4 and pleasantly conversant and confirms he lives in [facility] at home alone as his spouse a few months ago in August 2023 after having dementia and medical complications the past couple years. Pt very active and independent and drove himself to the hospital and has his vehicle in the parking lot. Pt does not use DME for ambulation and his DPOA is now his Dtr who lives in [place] now that his spouse is . Pt denies any hx of HH or SNF for himself but aware of the services through his . No further local family other than his Sister inlaw with dementia at [facility]. Pt has multiple SBOs and some surgical intervention in the past and aware of the process of conservative tx and pt is hopeful to discharge home tomorrow if medically stable and does not anticipate any discharge needs. Pt states his Dtr is flying in on January 10 in a week and a half to help get his house ready for sale as he plans to move back and live with his Dtr and her family near their [place] on [address] [facility]. Pt also has an RV and some rental property. Plan: SW to follow closely to determine if pt can tolerate advancing diet vs possible surgery if pt does not improve. SW to confirm safe d/c home when medically stable and any further identified discharge planning needs. YA Garrison Discharge Planning/Care Management CM Discharge Assessment Start: 01/01/24 13:42 Freq: Status: Active Protocol: Document 01/01/24 13:42 BF (Rec: 01/01/24 13:46 BF [id number]) Discharge Planning Assessment Assigned Stencil Cutter Machine YA Higgins DPOA/Assigned Designee Name Dtr in [facility] Advance Directives? Yes: Health Care Directive/ DPOA Advance Directives on File Yes History Provided By Patient,Medical Record Has Patient been admitted in last 30 No days? Prior Living Arrangements House Household Members none Type of transporation used prior to Drives own vehicle admit Independent with ADL's Yes Is patient alert and oriented? Yes Caregiver for Another No Barriers to Discharge No Discharge Plan Home Transportation Arrangement drove himself so his vehicle is in the parking lot Referrals Initiated None needed Whiteboard Updated in Patient Room with Yes name and ext. # of Stencil Cutter Machine Review Status In Process Please Provide Date Initial DC 01/01/24 Assessment Was Performed Next Review Type Continued Stay Review
[2024-01-01] MEDS: KETOROLAC 30 MG/ML VIAL 15 MG IV ×2 (14:45→22:20)
--- NOTE | 2024-01-01 15:10 | DI.RAD.S_ITS ---
PROCEDURE: XR CHEST 1V INDICATIONS: to check NG tube placement. TECHNIQUE: One view of the chest was acquired. COMPARISON: [facility], CT, CT CHEST HIGH RESOLUTION, 08/10/2023, 12:57. [facility], CR, XR CHEST 1V, 12/31/2023, 7:48. FINDINGS: Surgical changes and devices: A gastric tube is seen, with the tip overlying the fundus of the stomach. The side hole is seen near the. Lungs and pleura: On this semiupright portable chest examination, no large pneumothorax or large pleural effusions are seen. No focal infiltrates are seen. Low lung volumes are noted. This causes a crowded appearance to the lung markings and limits evaluation. Generalized interstitial prominence can be seen. Mediastinum: Mediastinal contours appear normal. Heart size is at the upper limits of normal. Bones and chest wall: No suspicious bony lesions. Age-appropriate bony degenerative changes are seen. Overlying soft tissues appear unremarkable. IMPRESSION: The tip of the gastric tube can be seen overlying the fundus of the stomach, with the side hole seen near the level of the diaphragm. Please consider advancement 5-10 cm. Low lung volumes, with generalized interstitial prominence. Dictated by: Beltran Felix M.D. on 01/01/2024 at 14:30 Approved by: Beltran Felix M.D. on 01/01/2024 at 14:31
[2024-01-01 16:00] VITALS: BP 146/83; PULSE 67; RESP 16; TEMP 36.6; O2SAT 93
[2024-01-01] MEDS: PANTOPRAZOLE 40 MG VIAL IV (18:15)
--- NOTE | 2024-01-01 18:35 | DI.RAD.S_ITS ---
PROCEDURE: XR CHEST 1V INDICATIONS: ng tube placement TECHNIQUE: One view of the chest was acquired. COMPARISON: [facility], , XR CHEST 1V, 01/01/2024, 15:10. [facility], CR, XR CHEST 1V, 12/31/2023, 7:48. FINDINGS: Surgical changes and devices: Enteric tube has been repositioned is now in satisfactory position. Lungs and pleura: Lungs are stable with low lung volumes and chronic interstitial markings. No pleural effusions or pneumothorax. Mediastinum: Mediastinal contours appear normal. Heart size is normal. Bones and chest wall: No suspicious bony lesions. Overlying soft tissues appear unremarkable. IMPRESSION: Enteric tube is in satisfactory position. Approved by: Federico Grayson M.D. on 01/01/2024 at 19:22
[2024-01-01 20:55] VITALS: BP 137/81; PULSE 67; RESP 18; TEMP 36.5; O2SAT 95
[2024-01-02 01:30] VITALS: BP 132/53; PULSE 64; RESP 64; TEMP 36.4
[2024-01-02] MEDS: SODIUM CHLORIDE 0.9% 1,000 ML 125 ML IV ×3 (06:24→22:55)
--- NOTE | 2024-01-02 08:06 | PC.NURSE ---
Addendum entered by Shu Jones R.N. 01/02/24 09:40: Patient had an xl soft/lose bowel movement in the commode. aware and ordered for patients NG tube to be taken out and he is now on clear liquids. Gastrografen study also stopped. Patient tolerated his NG removal well. He is resting now with ivf infusing. Original Note: Patients ng tube suction turned off as he just received gastrografen for his test in a few hours. He is comfortable at this time and using the urinal to void. Patient is passing some gas and bt are present.
[2024-01-02] MEDS: PANTOPRAZOLE 40 MG VIAL IV (09:04)
[2024-01-02 13:00] VITALS: BP 127/78; PULSE 65; RESP 16; TEMP 36.6; O2SAT 95
--- NOTE | 2024-01-02 14:39 | CM.DPC ---
DCP Cont: Per Surgeon and MD, pt's NGT discontinued and pt had large bowel movement and slowly advancing his diet to confirm he can tolerate. Possible discharge this evening vs tomorrow pending progress. Pt's vehicle in the parking lot and independent at baseline. No needs identified at this time. YA Garrison
--- NOTE | 2024-01-02 14:56 | DI.RAD.S_ITS ---
PROCEDURE: XR GASTROGRAFIN CHALLENGE COMPARISON: [facility], CT, CT ABDOMEN PELVIS W CON, 12/31/2023, 8:07. INDICATIONS: Small Bowel Obstruction FINDINGS: 1 image. Clips in suture material in the right lower abdomen. No suspicious calcifications. Oral contrast throughout the entire colon extending to the rectum. Suspected contrast in the urinary bladder. Dilated loops of small bowel in the right abdomen. No aggressive appearing osseous lesion. Moderate bilateral hip DJD. IMPRESSION: Persistent dilated loops of small bowel in the right abdomen. However, the oral contrast has reached the rectum which speaks against a severe bowel obstruction. Findings could be due to partial small bowel obstruction or resolving obstruction. Recommend clinical correlation. Dictated by: Davey Mi M.D. on 01/02/2024 at 17:07 Approved by: Davey Mi M.D. on 01/02/2024 at 17:10
[2024-01-02 16:00] VITALS: BP 131/73; PULSE 72; RESP 16; TEMP 36.6; O2SAT 96
--- NOTE | 2024-01-02 16:53 | PM.PN.1 ---
Subjective Subjective Date Patient Seen: 01/02/24 Time Patient Seen: 09:20 Interval history: CC: bowel obstruction I came to see the patient several times this morning but each time had to return later because he was on the commode having good output of bowel movements. We were able to remove the NGT and advance diet from clears to heart healthy he is feeling much better. Attributes the blockage to consuming several [employer] coconut balls and then taquitos. Exam Vital Signs (past 8 hours): - 01/02/24 13:00 Temperature 97.8 F Pulse Rate 65 Respiratory Rate 16 Blood Pressure 127/78 Pulse Oximetry 95 Oxygen Flow Rate 0 Oxygen Delivery Method Room Air Oxygen Flow Rate 0 Narrative Exam Narrative: alert sitting in bed Const Other: well developed a bit thin Resp Other: clear to auscultation bilaterally Cardio Other: regular rate and rhythm, well perfused GI Other: soft active bowel sounds, a bit tender still Extrem Other: moving all extremities Objective Labs 12/31/23 07:45 01/01/24 08:02 [facility] Medical History (Updated 12/31/23 @ 11:22 by Dane Collins MD) BPH (benign prostatic hyperplasia) Non Hodgkin's lymphoma Small bowel obstruction Surgical History History of bowel resection Port catheter in place Port catheter in place Status post hernia repair Social History household members: none Smoking Status: Never smoker alcohol intake: current Assessment & Plan Assessment & Plan narrative: 83-year-old man with history of previous SBO and prior intussusception presenting with abdominal pain and imaging consistent with recurrence of small-bowel obstruction. #SBO CT initially showed distal small-bowel obstruction. Gastrografin study planned for today seems to have resolved matters. NGT resolved- ADAT - avoid opiates and [employer] foodstuffs going forward I would say. #Hx of A. fib with RVR historical/monitor #Pulmonary fibrosis Resume home Ofev tomorrow #GERD Resume home omeprazole 20 mg b.i.d. #Glaucoma stable continue home Latanoprost drops nightly #History of non-Hodgkin's lymphoma, in remission stable Dispo: admitted inpt d/t need for NGT - likely home tomorrow if feeling/eating ok PCP: Claudy Code: DNR Diet: heart healthy Code status: DNR Quality VTE Deep Vein Thrombosis/Pulmonary Embolism Present on Admission: No
--- NOTE | 2024-01-02 17:47 | PM.EVENT ---
Event Note Date Patient Seen: 01/02/24 Time Patient Seen: 17:47 Event Note (Rapid Response, Code, or fall): The patient has had multiple bowel movements today. His diet can be advanced and he can be discharged home once he is tolerating regular diet.
[2024-01-02 20:34] VITALS: BP 131/75; PULSE 66; RESP 20; TEMP 36.4; O2SAT 95
[2024-01-02] MEDS: ACETAMINOPHEN 325 MG TABLET 650 MG PO (23:32)
[2024-01-03 05:34] VITALS: BP 122/72; PULSE 58; RESP 19; TEMP 36.5; O2SAT 97
--- NOTE | 2024-01-03 05:57 | PC.NURSE ---
Pt iv in left ac occluded. pt has orders to be on continuous fluids but pt declined for another iv access to be started based on his likeliness to be discharged this morning. will notify day shift.
[2024-01-03] MEDS: PANTOPRAZOLE 40 MG VIAL IV (08:23)
--- NOTE | 2024-01-03 08:29 | PM.DS.1 ---
History of Present Illness History of Present Illness Date Patient Seen: 01/03/24 Time Patient Seen: 08:29 Date of Onset of Symptoms: 12/31/23 Chief complaint: STOMACH PAINS Narrative: See history and physical dictated 12/31/2023 Discharge Providers Provider Date of admission: 12/31/23 09:01 Discharge Date: 01/03/24 Primary care physician: Dr. Loco Consults: Dr. Collins Discharge provider: Jesse Rodriguez MD Summary Hospital Course Discharge Diagnosis: Small-bowel obstruction Progressive fibrosing interstitil lung disease Reflux esophagitis History of lymphoma History of AFib with RVR Hospital Course: Small-bowel obstruction patient was admitted to the hospital. And Dr. Collins was consulted. Initially no NG was placed. He actually had a history of small bowel fraction and Gastrografin was given it resolved. Patient on day 2 had a Gastrografin study which showed passage of the Gastrografin into the rectum. It was felt to be a partial small bowel obstruction. He was started on clear liquids and over the course of the next few days improved remarkably. No fevers no white count improving pain started having bowel movements was able to tolerate to meals yesterday and today has very minimal pain. No other changes. He will be discharged to home he will be on a light diet and will follow up with Dr. Martines next week. History of interstitial lung disease. Pulmonary fibrosis. Continue Ofev History of AFib. Not active. We will continue to monitor he will follow as an outpatient History of reflux. Continue omeprazole. History of glaucoma. No change in treatment usual drops History of non-Hodgkin's lymphoma. Stable. 37 minutes spent reviewing chart discussion with the patient nursing orders dictation Exam Vital Signs (past 8 hours): - 01/03/24 05:34 Temperature 97.7 F Pulse Rate 58 L Respiratory Rate 19 Blood Pressure 122/72 Pulse Oximetry 97 Oxygen Flow Rate 0 Oxygen Delivery Method Room Air Oxygen Flow Rate 0 Narrative Exam Narrative: Alert elderly male sitting in chair in no acute distress. Mucous membranes moist. Neck supple without adenopathy. Lungs are clear. Heart is regular rate and rhythm. Abdomen is soft positive bowel sounds very slight left upper quadrant pain. No rebound guarding no masses. Skin is without abnormality Objective Labs 12/31/23 07:45 01/01/24 08:02 [facility] Medical History (Updated 12/31/23 @ 11:22 by Dane Collins MD) BPH (benign prostatic hyperplasia) Non Hodgkin's lymphoma Small bowel obstruction Surgical History History of bowel resection Port catheter in place Port catheter in place Status post hernia repair Social History household members: none Smoking Status: Never smoker alcohol intake: current Discharge Assessment & Plan Assessment and Plan Assessment: Small-bowel obstruction Plan of Treatment: Improved discharge home Discharge Plan Discharge Plan Patient Disposition: Home Discharge orders & Medications Prescriptions: Continued Prilosec OTC 20 mg tablet,delayed release (DR/EC) 20 mg PO BID cholestyramine (with sugar) 4 gram powder in packet 4 g PO DAILY acetaminophen 325 mg tablet 650 mg PO QPM diltiazem HCl 120 mg capsule,extended release 24hr 120 mg PO DAILY latanoprost 0.005 % drops 1 drp EYE-BOTH BEDTIME Patient Comments: INSTILL 1 DROP IN EACH EYE QHS Ofev 100 mg capsule 100 mg PO Q12H Follow up/Referrals: Zahra Sutton MD [Primary Care Provider] - Magdi Loco MD [Physician] - 01/09/24 (Please call for appointment) Discharge Health Status Multidrug resistant organism: No MDRO Diet/Activity/Treatments Diet: Diet as Tolerated Diet comment: No heavy foods Activity: As tolerated Skin/Wound/Dressing Care Report to your healthcare provider any signs of infection, such as:: chills, fever and increased pain Visit Report/Discharge Packet Instructions: DI for Small Bowel Obstruction Stand Alone Forms: Patient Portal/API, Stroke Signs & Symptoms Discharge Data Primary Care Provider: Zahra Sutton Quality VTE Deep Vein Thrombosis/Pulmonary Embolism Present on Admission: No
[2024-01-03 08:44] VITALS: BP 156/77; PULSE 64; RESP 15; TEMP 36.2; O2SAT 96
--- NOTE | 2024-01-03 09:30 | PC.NURSE ---
Patient is A&OX4, VSS, afebrile on RA. Patient is ambulating around his room this a.m. eager to discharge home after breakfast. MD Rodriguez at bedside evaluating him and clears him for discharge home this a.m. He denies abdomen pain, abdomen is SNT, +BSx4. He denies n/v and tolerates breakfast well. He verbalizes understanding of medications, discharge plan and follow up with MD Loco on 01/08. He is escorted with all of his belongings by RN to private vehicle at 0919 in which he had driven himself in prior to ED arrival.
--- NOTE | 2024-01-03 10:11 | CM.DPC ---
DCP Cont. Reviewed EMR and team rounds for status updates. Pt has been medically cleared for d/c today, will drive himself home. No further DCP needs identified at this time.
== END 2024-01-03 09:19 | disposition home or self-care (01) | DRG 390 ==
LOC: ED 08:58 → AC 01-01 11:24
PROVIDERS: Admitting Provider Family Medicine; Emergency Provider Emergency Medicine; Family Provider Specialist; PCP Student in an Organized Health Care Education/Training Program; Referring Provider Emergency Medicine; Visit Provider Family Medicine
DX: K56.691 Other complete intestinal obstruction (principal); K21.9 Gastro-esophageal reflux disease without esophagitis; H40.9 Unspecified glaucoma; J84.10 Pulmonary fibrosis, unspecified; Z86.79 Personal history of other diseases of the circulatory system; Z85.72 Personal history of non-Hodgkin lymphomas; Z66 Do not resuscitate
CPT/HCPCS: 36415; 71045; 74018; 74177; 80053; 82550; 83690; 83735; 84484; 85025; 85610; 85730; 93005; 96374; 96375; 99284; C9113; J1885; J2270; J2405; Q9967